=== PATIENT | female | born 1940 | race Caucasian/White ===

== ENCOUNTER 2016-10-23 04:22 | Inpatient (IN) | payer OTHER ==
[~2016-10-23] VITALS: Ht 157.5 cm; Wt 47.2 kg
[~2016-10-23 04:22] MED LIST: ACIDOPHILUS1 CAP PO; ALBUTEROL 3 ML3 ML INH; ALBUTEROL 3 ML3 ML NEB; APAP325 MG PO; AZITHROMYCIN500 MG PO; CARDIZEM CD180 MG PO; CEFTAZIDIME IV; CIPRO 500MG TA500 MG PO; CIPROFLOXACIN500 MG PO; DALIRESP500 MCG PO; DILTIAZEM60 MG PO; DOK100 MG PO; DULCOLAX5 MG PR; FLEET ENEMA 131 UNIT RC; FLOVENT0.11 MG/Ac INH; FORTAZ1 GM IV; LOVENOX 4040 MG/0.4 SC; MELATONIN 3 MG-1 TAB PO; MELATONIN3 MG PO; MILK OF MA400 MG/5 M PO; MIRALAX17 GM PO; MUCINEX ER600 MG PO; PERIOGARD 473473 ML PO; PREDNISONE10 MG PO; ROBITUSSIN W/CO10 ML PO; SENNA CON/DOCUS1 TAB PO; SENNA LEAVES1 GRA PO; SODIUM CHLORIDE1 GM PO; SPIRIVA 18 MCG18 MCG INH; TESSALON PERLE100 MG PO; VITAMIN D50000 IU PO
--- NOTE | 2016-10-23 04:28 | NUR ---
DR JACOBS AT BEDSIDE FOR EVAL. RESP CALLED.
--- NOTE | 2016-10-23 04:30 | ED DYSPNEA/ASTHMA COMPLAINT ---
See Addendum History of Present Illness General Chief Complaint: Dyspnea (COPD, CHF, Other) Stated Complaint: SOB,COUGH Source: patient Exam Limitations: no limitations Vital Signs & Intake/Output Vital Signs & Intake/Output Vital Signs Date Time Temp Pulse Resp B/P Pulse O2 O2 Flow FiO2 Ox Delivery Rate 10/23 0458 98 Non ReBreather 10/23 0430 90 Nasal 2.0L Cannula 10/23 0427 100.4 100 22 136/90 90 Nasal 2.0L Cannula Allergies Coded Allergies: MDX - PCN (penicillin) (PCN (PENICILLIN)) (UNKNOWN 08/02/13) Reconcile Medications Albuterol Sulfate (Proventil) 2.5 MG/3 ML NEB 3 ML INH EVERY 4 HRS/AWAKE wheezes Azithromycin 500 MG TAB 1 TAB PO 3XW INFECTION (Reported) Chlorhexidine Gluconate (Periogard 473 Ml) 0.12 % MOUTHWASH 15 ML PO BID RINSE (Reported) DILTIAZEM HCL (Cardizem Cd) 180 MG C24 1 CAP PO DAILY HEART (Reported) Docusate Sodium/Senna (Senna S) 50 MG/8.6 MG TAB 1 TAB PO BID CONSTIPATION ( Reported) ERGOCALCIFEROL (VITAMIN D2) (Vitamin D2) 50,000 IU SGL 50,000 IU PO Q30D VITAMIN D SUPPLEMENT (Reported) Fluticasone Propionate (Flovent) 0.11 MG/Actuation SIDRA 0.22 MG INH BID COPD ( Reported) Guaifenesin (Mucinex) 600 MG TAB.ER.12H 1 TAB PO BID PNA (Reported) Lactobacillus Acidophilus (Acidophilus) 1 CAP CAP 1 CAP PO BID GI (Reported) Melatonin 3 MG TAB 1 TAB PO AT BEDTIME SLEEP (Reported) Robitussin AC (Guaifenesin-Codeine Syrup) 10 ML UDC 10 ML PO Q4-6 PRN COUGH Roflumilast (Daliresp) 500 MCG TAB 1 TAB PO DAILY UNKNOWN (Reported) Tiotropium [place] (Spiriva) 18 MCG CAP.W.DEV 1 CAP INH DAILY COPD (Reported) Triage Note: PT BIBA FROM [facility]. PER EMS SUDDEN ONSET OF SOB AND COUGH. HX OF COPD. PT GIVEN DUO NEB IN ROUTE AND 125MG SOLU MEDROL. ON ARRIVAL PT ON 2L O2, O2 SAT LOW 90'S AND PT COUGHING UNCONTROLLED. Triage Nurses Notes Reviewed? yes Onset: Gradual Duration: hour(s):, getting worse Timing: single episode today Severity: moderate Activities at Onset: none Prior Episodes/Possible Cause: occasional episodes Modifying Factors: Worsens With: movement. Associated Symptoms: cough, wheezing HPI: 76-year-old woman history of COPD, presents with dyspnea at rest. Per the medics, the F staff noted that she had increased work of breathing, wheezing, and shortness of breath. Her O2 sat on 3 L dislocated was 88%, which would improve during a breathing treatment to 97%. Expiratory CO2 in route was 50. The medics noted use of accessory muscles in transit. She confers coughing and wheezing, but no chest pain. Pt given solumedrol 125mg iv en route. She is otherwise well. Past History Medical History Any Pertinent Medical History? see below for history Neurological: NONE EENT: NONE Cardiovascular: hypertension Respiratory: severe, oxygen dependent COPD, bilateral cylindrical bronchiectasis , recurrent pseudomonas pneumonia, chronic interstitial lung disease, left upper lobe lung nodule Gastrointestinal: NONE Hepatic: NONE Renal: NONE Musculoskeletal: ARTHRITIS Psychiatric: NONE Endocrine: NONE Blood Disorders: NONE Cancer(s): NONE FAMILY INDEPENDENCE CASE MANAGER/Reproductive: NONE History of MRSA: No History of VRE: No History of CDIFF: No Surgical History Surgical History: N Psychosocial History Who do you live with Patient/Self Services at Home Oxygen What is your primary language Kinyarwanda Family History Family History, If Any: MOTHER FH: heart disease SISTER FH: diabetes mellitus Relation not specified for: Family history unknown Hx Contributory? No Review of Systems Review of Systems Constitutional: Reports: no symptoms. EENTM: Reports: no symptoms. Respiratory: Reports: no symptoms. Cardiovascular: Reports: no symptoms. GI: Reports: no symptoms. Genitourinary: Reports: no symptoms. Musculoskeletal: Reports: no symptoms. Skin: Reports: no symptoms. Neurological/Psychological: Reports: no symptoms. Hematologic/Endocrine: Reports: no symptoms. Immunologic/Allergic: Reports: no symptoms. All Other Systems: Reviewed and Negative Physical Exam Physical Exam General Appearance: well developed/nourished, moderate distress Head: atraumatic, normal appearance Eyes: Bilateral: normal appearance. Ears, Nose, Throat: normal pharynx, normal ENT inspection Neck: normal inspection, supple Respiratory: accessory muscle use, wheezing, respiratory distress Cardiovascular: regular rate/rhythm Gastrointestinal: normal bowel sounds, soft, non-tender Extremities: normal inspection, normal capillary refill, normal range of motion, no edema Neurologic/Psych: no motor/sensory deficits, awake, alert, oriented x 3 Skin: intact, warm/dry Core Measures ACS in differential dx? No Severe Sepsis Present: No Septic Shock Present: No Progress Differential Diagnosis: asthma, AMI, bronchitis, CHF, COPD Plan of Care: Orders Procedure Date/time Status Nothing by Mouth 10/23 B Active Patient Data 10/23 553 Active EKG 10/23 505 Active B-TYPE NATRIURETIC PEP (BNP) 10/23 439 Complete BLOOD CULTURE 10/23 434 Active Saline Lock 10/23 433 Active Misc Message 10/23 433 Active ED Holding Orders 10/23 433 Active Admit to inpatient 10/23 433 Active Vital Signs 10/23 433 Active Code Status 10/23 433 Active RAPID VIRAL INFLUENZA A 10/23 432 Complete BLOOD CULTURE 10/23 432 Active ARTERIAL BLOOD GAS (GEN) 10/23 430 Complete TROPONIN LEVEL 10/23 430 Complete COMPREHENSIVE METABOLIC PANEL 10/23 430 Complete CBC WITHOUT DIFFERENTIAL 10/23 430 Complete EKG 10/23 430 Active Current Medications Sig/Jabier Start time Last Medication Dose Stop Time Status Admin Methylprednisolone 125 MG ONCE ONE 10/23 429 UNVr (Solu Medrol) 10/23 430 Laboratory Tests 10/23/16449: pH 7.37, pCO2 54 H, pO2 63 L, HCO3 31 H, ABG O2 Sat (Measured) 91.0 L, P-50 (Temp Corrected) N, Carboxyhemoglobin 0.1 L, O2 Concentration % 3L, O2 Delivery Method N/C, Phlebotomy Draw Site RIGHT BRACHIAL 10/23/16439: Anion Gap 10, Estimated GFR > 60, BUN/Creatinine Ratio 26.0 H, Glucose 110 H, Calcium 9.5, Total Bilirubin 0.6, AST 26, ALT 23, Alkaline Phosphatase 114, Troponin I < 0.01, Ima-P-Xbwezzkjbfv Pept 89.9, Total Protein 8.1, Albumin 4.4, Globulin 3.7, Albumin/Globulin Ratio 1.2, CBC w Diff NO MAN DIFF REQ, RBC 4.07 L, MCV 87.7, MCH 28.3, RDW 14.0, MPV 8.1, Gran % 86.6 H, Lymphocytes % 8.0 L, Monocytes % 5.0, Eosinophils % 0, Basophils % 0.4, Absolute Granulocytes 10.6 H , Absolute Lymphocytes 1.0 L, Absolute Monocytes 0.6, Absolute Eosinophils 0, Absolute Basophils 0.1, PUBS MCHC 32.3 L 10/23/16 0432: Uqr-I-Zmbhaywpolt Pept Cancelled Microbiology 10/23 444 BLOOD: Blood Culture - RECD 10/23 429 BLOOD: Blood Culture - RECD Diagnostic Imaging: Viewed by Me: Radiology Read. Discussed w/RAD: Radiology Read. CXR Impression: bronchiectasis w/ likely mucoid impaction... full report below. Initial ED EKG: sinus tach (although computer read ekg as afib)... Repeat EKG: unchanged Comments: PATIENT: RAD COLLINS PRESENT AGE: 76 PATIENT ACCOUNT NO: [id number] : 39 LOCATION: [facility] ORDERING PHYSICIAN: AREN JACOBS MD SERVICE DATE: 10/23/16 EXAM TYPE: RAD - XRY-PORTABLE CHEST XRAY EXAMINATION: XR PORTABLE CHEST CLINICAL INFORMATION: Dyspnea COMPARISON: 10/10/2015 TECHNIQUE: Portable view of the chest was obtained. FINDINGS: Lung volumes are symmetric. There is redemonstrated mild patchy opacity at the right lung base, similar to prior. Regions of mucoid impaction are suspected in the bilateral lungs, better demonstrated on prior CT, and which now may be worsened in the left upper lobe. No definite new consolidation. No evidence of pneumothorax, pleural effusion, or pulmonary edema. The cardiomediastinal contour is unremarkable. No acute osseous findings are seen. IMPRESSION: Bronchiectasis with multifocal mucoid impaction, which may be worsened in the left upper lobe compared to prior. DICTATED BY: ZAMZAM YARBROUGH MD DATE/TIME DICTATED:10/23/16544 DEFENSIVE LINE COACH:BLAISE DATE/TIME TRANSCRIBED:10/23/16544 CONFIDENTIAL, DO NOT COPY WITHOUT APPROPRIATE AUTHORIZATION. <Electronically signed in Other Vendor System> SIGNED BY: ZAMZAM YARBROUGH MD 10/23/16 0552 Departure Departure Disposition: STILL A PATIENT Condition: Stable Clinical Impression Primary Impression: COPD exacerbation Secondary Impressions: Sepsis Referrals: BRUCE ORTIZ MD (PCP/Family) Departure Forms: Customer Survey General Discharge Information Admission Note Spoke With: ANNALEE CONNOLLY MD Documentation of Exam: Documentation of any treatments & extenuating circumstances including Concerns Regarding Discharge (functional status, medication knowledge or non-compliance, living conditions, etc.) that warrant an admission rather than observation: pt with copd exacerbation, tachypnea, requires iv solumedrol, nebs/abx, increased 02 support to maintain 02 sat. Dnr/Dni, pt stable for gen med. Critical Care Note Critical Care Note Critical Care Time: 30-74 min
--- NOTE | 2016-10-23 04:48 | NUR ---
IV ACCESS ESTABLISHED PER THIS RN RW #[id number], BLOOD CULTURES COLLECTED AND SENT TO LAB, LABS DRAWN AND SENT BY THIS RN (POLANCO, SST, BLUE, LAV)
[2016-10-23 04:51] LABS: ABSOLUTE BASOPHIL COUNT 0.1 /CUMM (0.0-0.2); ABSOLUTE EOSINOPHIL COUNT 0 /CUMM (0.0-0.7); ABSOLUTE GRANULOCYTE CT 10.6 /CUMM (1.4-6.5); ABSOLUTE MONOCYTE COUNT 0.6 /CUMM (0.10-0.60); BASOPHIL % 0.4 % (0.0-2.0); EOSINOPHIL % 0 % (0-5); GRANULOCYTE % 86.6 % (42.2-75.2); HEMATOCRIT 35.7 % (37-47); MEAN CORPUSCULAR HGB 28.3 PG (27.0-31.0); MEAN CORPUSCULAR HGB CONC 32.3 G/DL (33.0-37.0); MEAN CORPUSCULAR VOLUME 87.7 FL (81.0-99.0); MEAN PLATELET VOLUME 8.1 FL (7.4-10.4); PLATELET COUNT 189 /CUMM (130-400); RED BLOOD CELL CT 4.07 /CUMM (4.20-5.40); WHITE BLOOD CELL COUNT 12.2 /CUMM (4.8-10.8)
--- NOTE | 2016-10-23 05:05 | NUR ---
PT MEDICATED WITH 500MG ZITHRO INFUSING AT 250ML/HR AND 1G ROCEPHIN PER EMAR. 125MG SOLUMEDROL NOT GIVEN TO PT BECAUSE DR JACOBS WAS NOT INFORMED THAT PT HAD 125MG SOLUMEDROL EN ROUTE GIVEN BY MEDIC.
--- NOTE | 2016-10-23 05:07 | NUR ---
PT CHANGED IN GOWN AND PLACED ON MONITOR WITH 5L NC O2 PT SAT 93%.
--- NOTE | 2016-10-23 05:52 | RADIOLOGY REPORT ---
EXAMINATION: XR PORTABLE CHEST CLINICAL INFORMATION: Dyspnea COMPARISON: 10/10/2015 TECHNIQUE: Portable view of the chest was obtained. FINDINGS: Lung volumes are symmetric. There is redemonstrated mild patchy opacity at the right lung base, similar to prior. Regions of mucoid impaction are suspected in the bilateral lungs, better demonstrated on prior CT, and which now may be worsened in the left upper lobe. No definite new consolidation. No evidence of pneumothorax, pleural effusion, or pulmonary edema. The cardiomediastinal contour is unremarkable. No acute osseous findings are seen. IMPRESSION: Bronchiectasis with multifocal mucoid impaction, which may be worsened in the left upper lobe compared to prior.
--- NOTE | 2016-10-23 06:01 | History & Physical ---
RUSSELL ABDI,[facility] 10/23/16 0558: General Information and HPI MD Statement: I have seen and personally examined RAD COLLINS and documented this H&P. The patient is a 76 year old F who presented with a patient stated chief complaint of [shortness of breath and severe cough]. Source of Information: patient Exam Limitations: no limitations History of Present Illness: 76-year-old female with PMH of severe bilateral bronchiectasis on preventative azithromycin and high frequency chest wall oscillation, recurrent pseudomonas pneumonia, chronic interstitial lung disease, 4 mm left upper lobe nodule, advanced COPD on oxygen 2-3 L, HTN, SVT, was sent from [place] for sudden onset of shortness of breath. O2 sat at the ECF on 3L was 89%, improved to 97% after breathing tx. In the ED, she was satting 90% on 2L, improved to 98% on non -rebreather. She reports feeling weak for 3 days. Today, her cough got really severe, she has frequent coughing fits productive of thick yellow sputum. She feels short of breath when she has the coughing fits. She also has sinus tachycardia up to 160s when she coughs. She experiences some palpitations as well. She reports her baseline heart rate is 92-100. She gets headache when she gets severe cough. Pt has been living in [place] for 3 years. Reports that everyone is coughing at the facility. She felt warm and chills today. She has chronic constipation. She has chronic blanching rash on her feet. She reports good appetite but the food at the facility "is not good". She ambulates independently at the facility with a walker. Sputum from 09/13/16, 06/11/16, 05/25/16, 12/30/14 grew pseudomonas aeruginosa sensitive to ceftazidime, ciprofloxacin (S/I), imipenem, resistant to gentamicin. Last echo 08/02/13: Normal left ventricular size, wall thickness and systolic function with no obvious regional wall motion abnormalities. Normal left ventricular diastolic filling pattern for age. The ejection fraction is visually estimated at 60%. Moderate to severe pulmonary hypertension. Allergies/Medications Allergies: Coded Allergies: Penicillins (UNKNOWN 10/23/16) Home Med list Acetaminophen 500 MG TABLET 1 TAB PO Q6 PRN PAIN (Reported) Albuterol Sulfate (Proventil) 2.5 MG/3 ML NEB 3 ML INH EVERY 4 HRS/AWAKE wheezes Ascorbic Acid (Vitamin C) 250 MG TABLET 1 TAB PO DAILY supplement (Reported) Azithromycin 500 MG TAB 1 TAB PO 3XW INFECTION (Reported) Bisacodyl 10 MG SUPP.RECT 1 SUP RC DAILY PRN CONSTIPATION (Reported) Chlorhexidine Gluconate (Periogard 473 Ml) 0.12 % MOUTHWASH 15 ML PO BID RINSE (Reported) DILTIAZEM HCL (Cardizem Cd) 180 MG C24 1 CAP PO DAILY HEART (Reported) Docusate Sodium/Senna (Senna S) 50 MG/8.6 MG TAB 1 TAB PO BID CONSTIPATION ( Reported) ERGOCALCIFEROL (VITAMIN D2) (Vitamin D2) 50,000 IU SGL 50,000 IU PO Q30D VITAMIN D SUPPLEMENT (Reported) Fluticasone Propionate (Flovent) 0.11 MG/Actuation SIDRA 0.22 MG INH BID COPD ( Reported) Guaifenesin (Mucinex) 600 MG TAB.ER.12H 1 TAB PO BID PNA (Reported) Lactobacillus Acidophilus (Acidophilus) 1 CAP CAP 1 CAP PO BID GI (Reported) Lorazepam (Ativan) 0.5 MG TABLET 1 TAB PO Q6P PRN ANXIETY (Reported) Magnesium Hydroxide (Milk Of Magnesia) 400 MG/5 ML ORAL.SUSP 5 ML PO BID PRN CONSTIPATION (Reported) Melatonin 3 MG TAB 1 TAB PO AT BEDTIME SLEEP (Reported) Na Phos,M-B/Na Phos,Di-Ba (Fleet Enema) 19 GRAM-7 GRAM/118 ML ENEMA 1 E RC ONCE PRN CONSTIPATION (Reported) Polyethylene Glycol 3350 (Miralax) 17 GRAM POWD.PACK 1 PAC PO DAILY constipation (Reported) dissolve in water Robitussin AC (Guaifenesin-Codeine Syrup) 10 ML UDC 10 ML PO Q4-6 PRN COUGH Roflumilast (Daliresp) 500 MCG TAB 1 TAB PO DAILY UNKNOWN (Reported) Tiotropium [place] (Spiriva) 18 MCG CAP.W.DEV 1 CAP INH DAILY COPD (Reported) Past History Travel History Traveled to [place] past 21 day No Medical History Neurological: NONE EENT: NONE Cardiovascular: hypertension Respiratory: severe, oxygen dependent COPD, bilateral cylindrical bronchiectasis , recurrent pseudomonas pneumonia, chronic interstitial lung disease, left upper lobe lung nodule Gastrointestinal: NONE Hepatic: NONE Renal: NONE Musculoskeletal: ARTHRITIS Psychiatric: NONE Endocrine: NONE Blood Disorders: NONE Cancer(s): NONE TELECOM COORDINATOR/Reproductive: NONE History of MRSA: No History of VRE: No History of CDIFF: No Surgical History Surgical History: N Past Family/Social History Family History Relations & Conditions if any MOTHER FH: heart disease SISTER FH: diabetes mellitus Relation not specified for: Family history unknown Psychosocial History Where do you live? Extended Care Facility Services at Home: Oxygen Smoking Status: Never Smoked ETOH Use: denies use Illicit Drug Use: denies illicit drug use Functional Ability Ambulation: independent, walker Review of Systems Review of Systems Constitutional: Reports: chills, fever, weakness. Denies: diaphoresis. EENTM: Reports: see HPI. Denies: visual changes. Cardiovascular: Reports: palpitations. Denies: chest pain, orthopena, peripheral edema. Respiratory: Reports: cough, short of breath, sputum production. GI: Reports: constipation. Denies: abdominal pain, bloating, diarrhea, nausea, bloody stool, vomiting. Genitourinary: Denies: dysuria. Exam & Diagnostic Data Last 24 Hrs of Vital Signs/I&O Vital Signs Date Time Temp Pulse Resp B/P Pulse O2 O2 Flow FiO2 Ox Delivery Rate 10/23 0458 98 Non ReBreather 10/23 0430 90 Nasal 2.0L Cannula 10/23 0427 100.4 100 22 136/90 90 Nasal 2.0L Cannula Intake & Output 10/23 0800 10/23 0000 10/22 1600 Intake Total 0 Output Total Balance 0 Intake, Oral 0 Patient 62.596 kg Weight Physical Exam General Appearance Alert, Oriented X3, Cooperative, Moderate Distress, pt was having coughing fits and noticably short of breath with accessory muscle use Skin rash on feet, chronic HEENT Atraumatic, PERRLA, EOMI Neck Supple, No JVD Cardiovascular tachycardic Lungs diffusely decreased breath sound, difficult to assess due to coughing fits Abdomen Normal Bowel Sounds, Soft, No Tenderness Neurological Normal Speech Extremities No Edema Last 24 Hrs of Labs/Seth: Laboratory Tests 10/23/16 0450: pH 7.37, pCO2 54 H, pO2 63 L, HCO3 31 H, ABG O2 Sat (Measured) 91.0 L, P-50 (Temp Corrected) N, Carboxyhemoglobin 0.1 L, O2 Concentration % 3L, O2 Delivery Method N/C, Phlebotomy Draw Site RIGHT BRACHIAL 10/23/16 0440: Anion Gap 10, Estimated GFR > 60, BUN/Creatinine Ratio 26.0 H, Glucose 110 H, Calcium 9.5, Total Bilirubin 0.6, AST 26, ALT 23, Alkaline Phosphatase 114, Troponin I < 0.01, Box-G-Fgyrkvyualo Pept 89.9, Total Protein 8.1, Albumin 4.4, Globulin 3.7, Albumin/Globulin Ratio 1.2, CBC w Diff NO MAN DIFF REQ, RBC 4.07 L, MCV 87.7, MCH 28.3, RDW 14.0, MPV 8.1, Gran % 86.6 H, Lymphocytes % 8.0 L, Monocytes % 5.0, Eosinophils % 0, Basophils % 0.4, Absolute Granulocytes 10.6 H , Absolute Lymphocytes 1.0 L, Absolute Monocytes 0.6, Absolute Eosinophils 0, Absolute Basophils 0.1, PUBS MCHC 32.3 L 10/23/16 0432: Sat-Q-Tmwwjumcibl Pept Cancelled Microbiology 10/23 600 URINE ROUT: Legionella Antigen - ORD 10/23 600 URINE ROUT: Streptococcus pneumoniae Antigen (M - ORD 10/23 600 LOWER RESP: Respiratory Culture - ORD 10/23 600 LOWER RESP: Gram Stain - ORD 10/23 444 BLOOD: Blood Culture - RECD 10/23 429 BLOOD: Blood Culture - RECD Diagnostic Data EKG Results Sinus tachy, rate 156 CXR Results IMPRESSION: Bronchiectasis with multifocal mucoid impaction, which may be worsened in the left upper lobe compared to prior. Assessment/Plan Assessment: 76-year-old female with PMH of severe bilateral bronchiectasis on preventative azithromycin and high frequency chest wall oscillation, recurrent pseudomonas pneumonia, chronic interstitial lung disease, 4 mm left upper lobe nodule, advanced COPD on oxygen 2-3 L, HTN, SVT, was sent from [place] for sudden onset of shortness of breath. Pt admitted to with the following problems addressed: # Acute hypoxic and hypercarbic respiratory failure due to HCAP, pseudomonas PNA , vs COPD exacerbation - Hypoxia, leukocytosis, fever, chills more in favor of pneumonia. Pt has hx of pseudomonas PNA, and has healthcare exposure risk being an [facility] resident. - Rapid flu negative - Given 1 X azithro, ceftriaxone, and ceftazidime in the ED -Given 1 X 125 mg IV solumedrol * Continue ceftazidime * Start vanco, can probably discontinue this * Continue solumedrol * TRC/nebs * Consult pulmonology in am, pt sees Dr. Gonzalez * Continue azithro 500 mg 3X/week, robitussin AC, mucinex, roflumilast * Follow BC X2, LRC, urine legionella, urine strep pneumo # SVT/HTN * Continue diltiazem CD 180 mg # Continue home meds * Continue senna S, miralax, milk mag prn, lactobacillus, melatonin 3 mg, vit d2 , vitamin c, ativan 0.5 qhs prn Diet: heart healthy DVT ppx: mech and pharm DNR/DNI As Ranked By This Provider Problem List: 1. Pneumonia Core Measures/Miscellaneous Acute Coronary Syndrome ACS Diagnosis: No Cerebrovascular Accident CVA/TIA Diagnosis: No Congestive Heart Failure CHF Diagnosis: No Venous Thromboembolism VTE Risk Factors: Acute medical illness, Age > 40 VTE Prophylaxis Ordered Inpt: Mech & Pharm No Mech VTE prophylaxis d/t: No contraindications No VTE Pharm Prophylaxis d/t: No contraindications VTE Diagnosis: No VTE Type: NONE VTE Confirmed by (Test): NONE Severe Sepsis Severe Sepsis Present: No Septic Shock Septic Shock Present: No Miscellaneous Documentation Attending Case Discussed With: Dr. Adrianna Chase Primary Care Physician: BRUCE ORTIZ MD Patient sees these Specialists Dr Gonzalez pulmonology Level of Patient Care: General Medicine CHANDNI HICKS 10/23/16 0703: Resident Review Statement Resident Statement: discussed with case mgmt, reviewed images, amended to note Other Findings: 76-year-old lady with past medical history of multiple pseudomonal pneumonia, severe bronchiectasis, COPD on 2-3 L oxygen, ventricular tachycardia?, Hypertension who lives at [place] for about 3 years brought to the hospital with chief complaint of desaturation, tachycardia. Patient reported having increased cough, sputum production, shortness of breath on exertion for at least 3 days. On the day of admission patient had at the episode of tachycardia of 167 with desaturation on her regular 2-3 liter oxygen. Upon admission to ED patient had fever of 100.4, tachypnea, ET 8% on 3 L O2 saturation. Patient got TRC treatment and O2 saturation ligia to more than 92%. Patient reports that everybody is coughing in the assisted, but denies any chest pain. She also reports heart palpitations. Her baseline heart rate is around 95. She denies any abdominal pain, diarrhea, change in urinary symptoms. Vital signs on admission are noted above General appearance alert and oriented 3, in idtn-ds-fjjarkam distress HEENT Atraumatic, PERRLA, EOMI Neck Supple, No JVD Cardiovascular tachycardia, Normal S1, Normal S2 Lungs Clear to mild decreased breath sounds with fine crackles Abdomen Normal Bowel Sounds, Soft, No Tenderness Neurological Normal Speech, Strength at 5/5 X4 Ext, Extremities No Clubbing, No Cyanosis, No Edema,multiple red rashes on both feet which according to the patient is chronic Portable labs on admission showed reduced 2.2, hemoglobin 11.5 which is at baseline, ABG showed CO2 of 54, O2 of 63, HCO3 of 33, pH 7.37, BMP and troponin were unremarkable, rapid flu was negative CXR: IMPRESSION: Bronchiectasis with multifocal mucoid impaction, which may be worsened in the left upper lobe compared to prior. Patient EKG showed sinus tachycardia 157, QTC of 451, no acute ST-T changes Assessment and plan #HCAP with possible COPD exacerbation/history of bronchiectasis/history of Pseudomonas pneumonia -Patient received IV azithromycin and ceftriaxone, we will give her IV ceftaz a timeout vancomycin -Continue azithromycin 3 times a week -Continue Mucinex -TRC -Patient got 125 mg Solu-Medrol we will continue with 40 mg every 8 -Pulmonary vest and chest physical therapy -Follow blood culture, sputum culture, urine Legionella and strep -Pulmonary consultation in the morning -I would consider Roxana Mayen #Tachycardia -Possibly due to multiple coughs -Patient baseline is around 95, will repeat EKG -Continue diltiazem #Constipation -Continue Senna and MiraLAX DNI/DNR, DVT prophylaxis is mechanical and Lovenox, heart healthy diet, Tylenol for pain GITA ABDI,ADRIANNA 10/23/16 1611: Attending MD Review Statement Attending Statement Attending MD Statement: examined this patient, discuss w/resident/PA/FOAM DISPENSER, agreed w/resident/PA/FOAM DISPENSER, discussed with family, reviewed EMR data (avail), discussed with nursing, discussed with case mgmt, reviewed images, amended to note Attending Assessment/Plan: 76-year-old female with history of advanced COPD and significant bronchiectasis, chronic interstitial lung disease , Pseudomonas pneumonia was sent in from [place] for worsening shortness of breath and cough. Vitals: Temperature 100.8, pulse 115, respiration 22, blood pressure 120/60, saturating 92% on 3 L Pertinent positive Exam Alert, awake, in distress because of continuous cough Decreased breath sounds bilaterally Heart-S1-S2 normal, tachycardic Pertinent positive labs : White count 12.2, hemoglobin 11.5, hematocrit 35.7, bicarbonate 33 Chest s-adm-Camqhbavmtcqac with multifocal mucoid impaction, which may be worsened in the left upper lobe compared to prior. Problem list: 1. Acute on chronic hypercarbic respiratory failure- secondary to recurrent Pseudomonas pneumonia, acute on chronic COPD exacerbation 2. Significant bronchiectasis 3. Leukocytosis fever,-most likely secondary to pneumonia/worsening bronchiectasis 4. History of hypertension, tachycardia Plan 1. Panculture, start IV ceftaz and Vanco. Narrow down the antibiotics once the culture results are back. Pulmonary consult appreciated. Continue IV Solu- Medrol. 2. Consider ID input. 3. Chest PT. TRC/nebs 4. Continue Cardizem for tachycardia. 5. DVT prophylaxis
--- NOTE | 2016-10-23 06:20 | NUR ---
HOUSE STAFF AT BEDSIDE FOR EVAL.
--- NOTE | 2016-10-23 06:25 | NUR ---
1G FORTAZ INFUSING PER EMAR.
--- NOTE | 2016-10-23 06:30 | NUR ---
THIS RN GAVE REPORT TO PAN ALLEN.
--- NOTE | 2016-10-23 06:32 | NUR ---
PT GOING TO 210-2
[2016-10-23] MEDS ORDERED: MIRALAX17 G1 PO (06:43)
[2016-10-23] MEDS ORDERED: VITAMIN C250 M3 PO (06:44)
[2016-10-23] MEDS ORDERED: ATIVAN0.5 M1 PO (06:46)
[2016-10-23] MEDS ORDERED: BISACODYL10 M1 RC (06:47)
[2016-10-23] MEDS ORDERED: MILK OF MA400 MG/52 PO (06:47)
[2016-10-23] MEDS ORDERED: FLEET ENEMA133 ML RC (06:48)
[2016-10-23] MEDS ORDERED: ACETAMINOPHEN500 M4 PO (06:48)
--- NOTE | 2016-10-23 07:15 | NUR ---
PT ARRIVED TO FLOOR APPX 0644. COUGHING OUT OF CONTROL, COUGHING UP BROWN TO YELLOW THICK SPUTUM. ALERT AND ORIENTED. REFUSED BED ALARM. USED BATHROOM - URINATED AND LOOSE BOWEL MOVEMENT. UPON MOVEMENT AND COUGHIN SATTING LOW 75%, HR 160S. RESPIRATORY CONTACTED AND STATED SHE DROPS WHEN COUGHING SIGNIFICANTLY. PT IN BED. RESTING, COUGHING HAS SLOWED DOWN. ON 5L NC SATTING AT 93%, HEART RATE STEADILY GOING DOWN TO LOW 100S. PT DRINKING WATER, BASIN AT BEDSIDE WITH TISSUES. SKIN CDI NO EDEMA. PT NEEDS WALKER, NEXT NURSE AND MST AWARE. AWAITING ORDERED CARDIZEM TO BE DELIVERED.
[2016-10-23 07:20] VITALS: BP 120/60
--- NOTE | 2016-10-23 10:53 | Cons- Pulmonary ---
General Information and HPI Consulting Request Date of Consult: 10/23/16 Requested By: ronny Reason for Consult: Exacerbation of COPD History of Present Illness: Patient is 76-year-old with bronchiectasis chronic pseudomonas colonization admitted with increasing cough hypercapnic respiratory failure and chest radiograph showing increased parenchymal density Allergies/Medications Allergies: Coded Allergies: Penicillins (UNKNOWN 10/23/16) Home Med List: Acetaminophen 500 MG TABLET 1 TAB PO Q6 PRN PAIN (Reported) Albuterol Sulfate (Proventil) 2.5 MG/3 ML NEB 3 ML INH EVERY 4 HRS/AWAKE wheezes Ascorbic Acid (Vitamin C) 250 MG TABLET 1 TAB PO DAILY supplement (Reported) Azithromycin 500 MG TAB 1 TAB PO 3XW INFECTION (Reported) Bisacodyl 10 MG SUPP.RECT 1 SUP RC DAILY PRN CONSTIPATION (Reported) Chlorhexidine Gluconate (Periogard 473 Ml) 0.12 % MOUTHWASH 15 ML PO BID RINSE (Reported) DILTIAZEM HCL (Cardizem Cd) 180 MG C24 1 CAP PO DAILY HEART (Reported) Docusate Sodium/Senna (Senna S) 50 MG/8.6 MG TAB 1 TAB PO BID CONSTIPATION ( Reported) ERGOCALCIFEROL (VITAMIN D2) (Vitamin D2) 50,000 IU SGL 50,000 IU PO Q30D VITAMIN D SUPPLEMENT (Reported) Fluticasone Propionate (Flovent) 0.11 MG/Actuation SIDRA 0.22 MG INH BID COPD ( Reported) Guaifenesin (Mucinex) 600 MG TAB.ER.12H 1 TAB PO BID PNA (Reported) Lactobacillus Acidophilus (Acidophilus) 1 CAP CAP 1 CAP PO BID GI (Reported) Lorazepam (Ativan) 0.5 MG TABLET 1 TAB PO Q6P PRN ANXIETY (Reported) Magnesium Hydroxide (Milk Of Magnesia) 400 MG/5 ML ORAL.SUSP 5 ML PO BID PRN CONSTIPATION (Reported) Melatonin 3 MG TAB 1 TAB PO AT BEDTIME SLEEP (Reported) Na Phos,M-B/Na Phos,Di-Ba (Fleet Enema) 19 GRAM-7 GRAM/118 ML ENEMA 1 E RC ONCE PRN CONSTIPATION (Reported) Polyethylene Glycol 3350 (Miralax) 17 GRAM POWD.PACK 1 PAC PO DAILY constipation (Reported) dissolve in water Robitussin AC (Guaifenesin-Codeine Syrup) 10 ML UDC 10 ML PO Q4-6 PRN COUGH Roflumilast (Daliresp) 500 MCG TAB 1 TAB PO DAILY UNKNOWN (Reported) Tiotropium [place] (Spiriva) 18 MCG CAP.W.DEV 1 CAP INH DAILY COPD (Reported) Review of Systems Review of Systems Constitutional: Denies: chills, fever. Cardiovascular: Denies: chest pain, peripheral edema. Respiratory: Reports: cough, short of breath, sputum production, wheezing. GI: Denies: abdominal pain, diarrhea, melena. Past History Travel History Traveled to [place] past 21 day No Medical History Neurological: NONE EENT: NONE Cardiovascular: hypertension Respiratory: severe, oxygen dependent COPD, bilateral cylindrical bronchiectasis , recurrent pseudomonas pneumonia, chronic interstitial lung disease, left upper lobe lung nodule Gastrointestinal: NONE Hepatic: NONE Renal: NONE Musculoskeletal: ARTHRITIS Psychiatric: NONE Endocrine: NONE Blood Disorders: NONE Cancer(s): NONE MOCK UP MAKER/Reproductive: NONE Surgical History Surgical History: none Family History Relations & Conditions If Any: MOTHER FH: heart disease SISTER FH: diabetes mellitus Relation not specified for: Family history unknown Psychosocial History Where Do You Live? Extended Care Facility Services at Home: Oxygen Smoking Status: Never Smoked ETOH Use: denies use Illicit Drug Use: denies illicit drug use Functional Ability Ambulation: independent, walker Exam & Diagnostic Data Last 24 Hrs of Vital Signs/I&O Vital Signs Date Time Temp Pulse Resp B/P Pulse O2 O2 Flow FiO2 Ox Delivery Rate 10/23 0720 100.8 125 22 120/60 80 Nasal 2.0L Cannula 10/23 0649 Nasal 5.0L Cannula 10/23 0458 98 Non ReBreather 10/23 0430 90 Nasal 2.0L Cannula 10/23 0427 100.4 100 22 136/90 90 Nasal 2.0L Cannula Intake & Output 10/23 1600 10/23 0800 10/23 0000 Intake Total 0 Output Total Balance 0 Intake, Oral 0 Patient 104 lb Weight Since saturation 2 L 80% temperature 100.8 exam for chest shows scattered rhonchi cardiac exam shows regular S1 and S2 without murmurs abdominal exam is soft nontender Last 48 Hrs of Labs/Seth: Laboratory Tests 10/23/16 0450: pH 7.37, pCO2 54 H, pO2 63 L, HCO3 31 H, ABG O2 Sat (Measured) 91.0 L, P-50 (Temp Corrected) N, Carboxyhemoglobin 0.1 L, O2 Concentration % 3L, O2 Delivery Method N/C, Phlebotomy Draw Site RIGHT BRACHIAL 10/23/16 0440: Anion Gap 10, Estimated GFR > 60, BUN/Creatinine Ratio 26.0 H, Glucose 110 H, Calcium 9.5, Total Bilirubin 0.6, AST 26, ALT 23, Alkaline Phosphatase 114, Troponin I < 0.01, Kex-F-Nsvbheujxhf Pept 89.9, Total Protein 8.1, Albumin 4.4, Globulin 3.7, Albumin/Globulin Ratio 1.2, CBC w Diff NO MAN DIFF REQ, RBC 4.07 L, MCV 87.7, MCH 28.3, RDW 14.0, MPV 8.1, Gran % 86.6 H, Lymphocytes % 8.0 L, Monocytes % 5.0, Eosinophils % 0, Basophils % 0.4, Absolute Granulocytes 10.6 H , Absolute Lymphocytes 1.0 L, Absolute Monocytes 0.6, Absolute Eosinophils 0, Absolute Basophils 0.1, PUBS MCHC 32.3 L 10/23/16 0433: Virus Culture Pending 10/23/16 0432: Lce-W-Scpofxdlidt Pept Cancelled Assessment/Plan Impression/Plan: 76-year-old woman with advanced COPD bronchiectasis chronic pseudomonas colonization admitted with acute probable Pseudomonas infection is social with hypercapnic history failure Recommendations: Aggressive pulmonary toilet. Use flutter valve to facilitate expectoration. Continue antibiotics IV steroids. Obtain sputum C&S Consult Acknowledgment - Thank you for your consult request.
[2016-10-23 15:41] VITALS: BP 140/60
[2016-10-23 16:00] VITALS: BP 140/60
--- NOTE | 2016-10-23 16:02 | Admission Certification ---
Admission Certification Certification Statement - As attending physician, I certify that at the time of - admission, based on clinical presentation, severity of - symptoms, need for further diagnostic testing and - therapeutic interventions, and risk of adverse outcomes - without in-hospital treatment, in my clinical assessment, - this patient requires an acute hospital stay for a minimum - of two nights or longer. I have also considered psychsocial - factors such as support system, advanced age, financial - issues, cognitive issues, and failed out-patient treatments, - past re-admission history, safety of patient, and lack of - compliance as applicable. Specific rationale supporting this admission is: Acute COPD exacerbation with underlying bronchiectasis and chronic pseudomonas colonization, pneumonia.
--- NOTE | 2016-10-23 23:38 | NUR ---
PT C/O SOB AND PERSISTENT, PRODUCTIVE COUGH. BP 140/78, HR 149, SPO2 90 ON 5L NC. # 407 NOTIFIED. TO ASSESS PT
[2016-10-23 23:56] VITALS: BP 140/78
--- NOTE | 2016-10-24 02:02 | NUR ---
PT'S T 102.9. # 407 MADE AWARE.
--- NOTE | 2016-10-24 02:03 | NUR ---
# 407 AT PT'S BEDSIDE
[2016-10-24 02:48] LABS: ABSOLUTE BASOPHIL COUNT 0 /CUMM (0.0-0.2); ABSOLUTE EOSINOPHIL COUNT 0 /CUMM (0.0-0.7); ABSOLUTE GRANULOCYTE CT 8.1 /CUMM (1.4-6.5); ABSOLUTE LYMPH COUNT 0.2 /CUMM (1.2-3.4); ABSOLUTE MONOCYTE COUNT 0.8 /CUMM (0.10-0.60); BASOPHIL % 0 % (0.0-2.0); EOSINOPHIL % 0 % (0-5); GRANULOCYTE % 89.1 % (42.2-75.2); HEMATOCRIT 30.8 % (37-47); MEAN CORPUSCULAR HGB 28.9 PG (27.0-31.0); MEAN CORPUSCULAR HGB CONC 33.3 G/DL (33.0-37.0); MEAN CORPUSCULAR VOLUME 86.7 FL (81.0-99.0); MEAN PLATELET VOLUME 8.4 FL (7.4-10.4); PLATELET COUNT 153 /CUMM (130-400); RBC DISTRIBUTION WIDTH 13.4 % (11.5-14.5); RED BLOOD CELL CT 3.55 /CUMM (4.20-5.40)
[2016-10-24 03:33] LABS: WHITE BLOOD CELL COUNT 9.1 /CUMM (4.8-10.8)
--- NOTE | 2016-10-24 04:20 | NUR ---
# 407 INFORMED OF PT'S BP P 153 T 100.3 SPO2 94%. PT STARTED ON IVF.
[2016-10-24 04:32] VITALS: BP 115/47
[2016-10-24 05:33] VITALS: BP 124/58
[2016-10-24 08:02] VITALS: BP 132/74
--- NOTE | 2016-10-24 09:41 | PN- Housestaff ---
MAXIMILIANO ABDI,SIMON 10/24/16 0941: Subjective Follow-up For: Acute hypoxic/hypercarbic respiratory failure HCAP Pseudomonas PNA COPD exacerbation Subjective: Patient seen and examined at bedside. Patient had an episode of fever and has been tachycardic up to 150s overnight. This morning she is complaining of difficulty breathing. Repeat ABG and EKGs were ordered. Patient is improving on BiPAP. She also endorses pleuritic chest pain also worsened by coughing. She denies any abdominal pain palpitations nausea vomiting constipation diarrhea. Review of Systems Constitutional: Reports: see HPI. Objective Last 24 Hrs of Vital Signs/I&O Vital Signs Date Time Temp Pulse Resp B/P Pulse O2 O2 Flow FiO2 Ox Delivery Rate 10/24 1049 110 94 10/24 1023 93 Nasal 4.0L Cannula 10/24 0802 98.1 104 22 132/74 92 10/24 0533 100.3 139 20 124/58 92 Nasal 3.0L Cannula 10/24 0432 100.3 153 20 115/47 96 Nasal 6.0L Cannula 10/24 0137 102.9 10/24 0120 102.9 10/24 0027 101.2 10/24 0008 91 Nasal 6.0L Cannula 10/24 0000 92 Nasal 6.0L Cannula 10/23 2356 101.5 149 21 140/78 91 Nasal 3.0L Cannula 10/23 1607 92 Nasal 4.0L Cannula 10/23 1600 98.7 115 20 140/60 92 Nasal 4.0L Cannula 10/23 1541 98.7 115 20 140/60 93 Nasal 3.0L Cannula Intake & Output 10/24 1600 10/24 0800 10/24 0000 Intake Total 270 480 Output Total 350 Balance -80 480 Intake, IV 150 Intake, Oral 120 480 Output, Urine 350 Physical Exam General Appearance: Alert, Oriented X3, Cooperative, Mild Distress Other Physical Findings: Skin rash on feet, chronic HEENT Atraumatic, PERRLA, EOMI Neck Supple, No JVD Cardiovascular tachycardic Lungs diffusely decreased breath sound Abdomen Normal Bowel Sounds, Soft, No Tenderness Neurological Normal Speech Extremities No Edema Current Medications: Current Medications Sig/Jabier Start time Last Medication Dose Route Stop Time Status Admin Acetaminophen 650 MG Q6P PRN 10/23 0700 AC 10/24 PO 0027 Albuterol Sulfate 3 ML EVERY 4 HRS/AWAKE 10/23 0800 AC 10/24 INH 1022 Ascorbic Acid 250 MG DAILY 10/23 1000 AC 10/24 PO 0943 Azithromycin 500 MG Q48H 10/25 0700 AC Dextrose/Water 250 ML IV Benzonatate 100 MG BID PRN 10/23 2030 AC 10/24 PO 0029 Ceftazidime 2,000 MG IQ8 10/24 0245 AC 10/24 IV 0800 Chlorhexidine 15 ML BID 10/23 1000 AC 10/24 Gluconate PO 0941 Diltiazem HCl 180 MG DAILY 10/23 0645 AC 10/24 PO 0940 Enoxaparin Sodium 40 MG DAILY 10/23 1000 AC 10/24 SC 0940 Guaifenesin 600 MG BID 10/23 1000 AC 10/24 PO 0941 Lorazepam 0.5 MG ONCE ONE 10/23 2345 DC 10/24 IV 10/23 2346 0030 Lorazepam 0.5 MG Q6P PRN 10/23 0700 AC PO 10/30 0659 Melatonin 3 MG AT BEDTIME 10/23 2200 AC 10/23 PO 2123 Methylprednisolone 40 MG Q8 10/24 0600 AC 10/24 IV 0515 Polyethylene Glycol 17 GM DAILY 10/23 1000 AC 10/24 PO 0941 Roflumilast 500 MCG DAILY 10/23 1000 AC 10/24 PO 0939 Senna/Docusate Sodium 1 TAB BID PRN 10/23 0645 AC PO Sodium Chloride 1,000 ML Q13H 10/24 0415 AC 10/24 IV 0515 Tiotropium [place] 1 PUF DAILY 10/23 1000 AC 10/24 INH 0941 Vancomycin HCl 1,000 MG DAILY 10/23 1000 AC 10/24 Dextrose/Water 250 ML IV 0941 Last 24 Hrs of Lab/Seth Results Last 24 Hrs of Labs/Mics: Laboratory Tests 10/24/16 0925: pH 7.36, pCO2 66 *H, pO2 82, HCO3 37 H, ABG O2 Sat (Measured) 95.0 L, P-50 ( Temp Corrected) N, Carboxyhemoglobin 0.3 L, O2 Concentration % 6LPM, O2 Delivery Method NC, Anion Gap 3 L, Estimated GFR > 60, BUN/Creatinine Ratio 22.5, CBC w Diff NO MAN DIFF REQ, RBC 3.62 L, MCV 87.3, MCH 28.7, RDW 13.9, MPV 8.3, Gran % 92.1 H, Lymphocytes % 3.0 L, Monocytes % 4.9, Eosinophils % 0, Basophils % 0 L, Absolute Granulocytes 6.7 H, Absolute Lymphocytes 0.2 L, Absolute Monocytes 0.4, Absolute Eosinophils 0, Absolute Basophils 0, PUBS MCHC 32.8 L, Phlebotomy Draw Site LEFT BRACHIAL 10/24/16 0734: Urinalysis LIGHT H, Urine Color YEL, Urine Clarity CLEAR, Urine pH 6.0, Ur Specific [place] 1.025, Urine Protein TRACE H, Urine Ketones NEG, Urine Nitrite NEG, Urine Bilirubin NEG, Urine Urobilinogen 0.2, Ur Leukocyte Esterase NEG, Ur Microscopic SEDIMENT EXAMINED, Urine RBC RARE, Urine WBC RARE, Ur Epithelial Cells RARE, Urine Hemoglobin TRACE-LYSED, Urine Glucose NEG 10/24/16 0600: Sodium Cancelled, Potassium Cancelled, Chloride Cancelled, Carbon Dioxide Cancelled, Anion Gap Cancelled, BUN Cancelled, Creatinine Cancelled, BUN/ Creatinine Ratio Cancelled, CBC w Diff Cancelled, WBC Cancelled, RBC Cancelled, Hgb Cancelled, Hct Cancelled, MCV Cancelled, MCH Cancelled, RDW Cancelled, Plt Count Cancelled, MPV Cancelled, PUBS MCHC Cancelled 10/24/16 0225: Anion Gap 6, Estimated GFR > 60, BUN/Creatinine Ratio 24.0, Lactic Acid 0.6 L, CBC w Diff NO MAN DIFF REQ, RBC 3.55 L, MCV 86.7, MCH 28.9, RDW 13.4, MPV 8.4, Gran % 89.1 H, Lymphocytes % 1.8 L, Monocytes % 9.1, Eosinophils % 0, Basophils % 0 L, Absolute Granulocytes 8.1 H, Absolute Lymphocytes 0.2 L, Absolute Monocytes 0.8 H, Absolute Eosinophils 0, Absolute Basophils 0, PUBS MCHC 33.3 Microbiology 10/24 725 URINE ROUT: Urine Culture - RECD 10/23 2299 LOWER RESP: Respiratory Culture - RES 10/23 2299 LOWER RESP: Gram Stain - RES Assessment/Plan Assessment: 76-year-old female with PMH of severe bilateral bronchiectasis on preventative azithromycin and high frequency chest wall oscillation, recurrent pseudomonas pneumonia, chronic interstitial lung disease, 4 mm left upper lobe nodule, advanced COPD on oxygen 2-3 L, HTN, SVT, was sent from [place] for sudden onset of shortness of breath. Pt admitted to with the following problems addressed: # Acute hypoxic and hypercarbic respiratory failure due to HCAP, pseudomonas PNA , vs COPD exacerbation Hypoxia, leukocytosis, fever, chills more in favor of pneumonia. Pt has hx of pseudomonas PNA, and has healthcare exposure risk being an [facility] resident. Rapid flu negative. Patient was given 1 X azithro, ceftriaxone, and ceftazidime with 125mg IV Solumedrol in the ED. * Continue ceftazidime 2g IV Q8 * Cont Vanco 1g IV daily * Cont Solumedrol 40mg IV Q8 * TRC nebs as needed * Consult pulmonology in am, pt sees Dr. Gonzalez * Continue azithro 500 mg 3X/week, robitussin AC, mucinex, roflumilast * Follow BC X2, LRC, urine legionella, urine strep pneumo * Pulm consulted # Hyponatremia * Follow serum osmolality * Check BEP daily, trend Na # SVT/HTN * Continue diltiazem CD 180 mg # Continue home meds * Continue senna S, miralax, milk mag prn, lactobacillus, melatonin 3 mg, vit d2 , vitamin c, ativan 0.5 qhs prn Diet: heart healthy DVT ppx: mech and pharm DNR/DNI Problem List: 1. Pneumonia 2. COPD (chronic obstructive pulmonary disease) 3. DVT prophylaxis 4. COPD (chronic obstructive pulmonary disease) Pain Ratin Pain Location: Chest Pain Goal: Remain pain free Pain Plan: Mild pathway Tomorrow's Labs & Rationales: CBC BEP GTIA ABDI,[facility] 10/24/16 1247: Attending MD Review Statement Attending Statement Attending MD Statement: examined this patient, discuss w/resident/PA/LEAD REFINERY SUPERVISOR, agreed w/resident/PA/LEAD REFINERY SUPERVISOR, discussed with family, reviewed EMR data (avail), discussed with nursing, discussed with case mgmt, reviewed images, amended to note Attending Assessment/Plan: Patient seen and examined. Currently getting respiratory treatment. Was in respiratory distress following which ABG was done which showed hypercarbia. Patient was refusing BiPAP as she is very uncomfortable on the mask, she was convinced for the BiPAP. She's been spiking fevers. She was supposed to get vancomycin and ceftaz since admission, somehow she got just 1 dose of ceftaz since admission. Her antibiotics resumed early this morning. Problem list: 1. Acute on chronic hypercarbic respiratory failure- secondary to recurrent Pseudomonas pneumonia, acute on chronic COPD exacerbation 2. Significant bronchiectasis 3. Leukocytosis fever,-most likely secondary to pneumonia/worsening bronchiectasis 4. History of hypertension, tachycardia Plan 1. Follow-up cultures. Continue IV Zithro, ceftaz and Vanco. Narrow down the antibiotics once the culture results are back. Pulmonary consult appreciated. Continue IV Solu-Medrol. 2. Consider ID input. 3. Chest PT. TRC/nebs 4. Continue Cardizem for tachycardia. 5. DVT prophylaxi
[2016-10-24 10:29] LABS: ABSOLUTE BASOPHIL COUNT 0 /CUMM (0.0-0.2); ABSOLUTE EOSINOPHIL COUNT 0 /CUMM (0.0-0.7); ABSOLUTE GRANULOCYTE CT 6.7 /CUMM (1.4-6.5); ABSOLUTE LYMPH COUNT 0.2 /CUMM (1.2-3.4); ABSOLUTE MONOCYTE COUNT 0.4 /CUMM (0.10-0.60); BASOPHIL % 0 % (0.0-2.0); EOSINOPHIL % 0 % (0-5); GRANULOCYTE % 92.1 % (42.2-75.2); HEMATOCRIT 31.6 % (37-47); MEAN CORPUSCULAR HGB 28.7 PG (27.0-31.0); MEAN CORPUSCULAR HGB CONC 32.8 G/DL (33.0-37.0); MEAN CORPUSCULAR VOLUME 87.3 FL (81.0-99.0); MEAN PLATELET VOLUME 8.3 FL (7.4-10.4); PLATELET COUNT 132 /CUMM (130-400); RBC DISTRIBUTION WIDTH 13.9 % (11.5-14.5); RED BLOOD CELL CT 3.62 /CUMM (4.20-5.40); WHITE BLOOD CELL COUNT 7.3 /CUMM (4.8-10.8)
--- NOTE | 2016-10-24 10:41 | RADIOLOGY REPORT ---
EXAMINATION: XR PORTABLE CHEST CLINICAL INFORMATION: Dyspnea. COMPARISON: Chest x-ray dated 10/23/2016, 10/10/2015. CT scan of the chest dated 12/28/2014. TECHNIQUE: AP semierect portable view of the chest was obtained. FINDINGS: The cardiac mediastinal silhouette is within normal limits in size. Lungs bilaterally are hyperinflated and again demonstrate diffuse tubular bronchiectasis in the lower lungs and to a lesser extent in the upper and mid lung bilaterally. There is diffuse thickening of the central airways. Hazy peribronchial opacities are seen in the lower lobes bilaterally, left greater than right, likely representing airway associated infection/inflammation and mucous plugging. Findings are similar to the recent prior exam. No evolving consolidation is seen. No pneumothorax is present. No pulmonary edema is seen. Diffuse osteopenia is noted. IMPRESSION: Chronic obstructive lung disease with diffuse bronchiectasis, most prominent in the lower lung zones. Associated airway associated infection/inflammation and mucous plugging is suspected. Findings are similar to the prior exam with no evolving dense consolidation seen.
--- NOTE | 2016-10-24 11:44 | PN- Pulmonary ---
Subjective HPI/Critical Care Issues: Patient noted to be more short of breath this morning now on BiPAP she has lethargic arterial blood gases not substantively different nor is chest x-ray Objective Current Medications: Current Medications Sig/Jabier Start time Last Medication Dose Route Stop Time Status Admin Acetaminophen 650 MG Q6P PRN 10/23 0700 AC 10/24 PO 0027 Albuterol Sulfate 3 ML EVERY 4 HRS/AWAKE 10/23 0800 AC 10/24 INH 1022 Ascorbic Acid 250 MG DAILY 10/23 1000 AC 10/24 PO 0943 Azithromycin 500 MG Q48H 10/25 0700 AC Dextrose/Water 250 ML IV Benzonatate 100 MG BID PRN 10/23 2030 AC 10/24 PO 0029 Ceftazidime 2,000 MG IQ8 10/24 0245 AC 10/24 IV 0800 Chlorhexidine 15 ML BID 10/23 1000 AC 10/24 Gluconate PO 0941 Diltiazem HCl 180 MG DAILY 10/23 0645 AC 10/24 PO 0940 Enoxaparin Sodium 40 MG DAILY 10/23 1000 AC 10/24 SC 0940 Guaifenesin 600 MG BID 10/23 1000 AC 10/24 PO 0941 Lorazepam 0.5 MG ONCE ONE 10/23 2345 DC 10/24 IV 10/23 2346 0030 Lorazepam 0.5 MG Q6P PRN 10/23 0700 AC PO 10/30 0659 Melatonin 3 MG AT BEDTIME 10/23 2200 AC 10/23 PO 2123 Methylprednisolone 40 MG Q8 10/24 0600 AC 10/24 IV 0515 Polyethylene Glycol 17 GM DAILY 10/23 1000 AC 10/24 PO 0941 Roflumilast 500 MCG DAILY 10/23 1000 AC 10/24 PO 0939 Senna/Docusate Sodium 1 TAB BID PRN 10/23 0645 AC PO Sodium Chloride 1,000 ML Q13H 10/24 0415 AC 10/24 IV 0515 Tiotropium [place] 1 PUF DAILY 10/23 1000 AC 10/24 INH 0941 Vancomycin HCl 1,000 MG DAILY 10/23 1000 AC 10/24 Dextrose/Water 250 ML IV 0941 Vital Signs & I&O Last 24 Hrs of Vitals and I&O: Vital Signs Date Time Temp Pulse Resp B/P Pulse O2 O2 Flow FiO2 Ox Delivery Rate 10/24 1049 110 94 10/24 1023 93 Nasal 4.0L Cannula 10/24 0802 98.1 104 22 132/74 92 10/24 0533 100.3 139 20 124/58 92 Nasal 3.0L Cannula 10/24 0432 100.3 153 20 115/47 96 Nasal 6.0L Cannula 10/24 0137 102.9 10/24 0120 102.9 10/24 0027 101.2 10/24 0008 91 Nasal 6.0L Cannula 10/24 0000 92 Nasal 6.0L Cannula 10/23 2356 101.5 149 21 140/78 91 Nasal 3.0L Cannula 10/23 1607 92 Nasal 4.0L Cannula 10/23 1600 98.7 115 20 140/60 92 Nasal 4.0L Cannula 10/23 1541 98.7 115 20 140/60 93 Nasal 3.0L Cannula Intake & Output 10/24 1600 10/24 0800 10/24 0000 Intake Total 270 480 Output Total 350 Balance -80 480 Intake, IV 150 Intake, Oral 120 480 Output, Urine 350 Action saturations adequate arterial blood gases did not show significant respiratory acidosis exam for chest shows scattered rhonchi cardiac exam shows normal S1 and S2 without murmurs Impression/Plan Impression/Plan Impression/Plan: 76-year-old woman with advanced COPD bronchiectasis chronic pseudomonas colonization admitted with acute probable Pseudomonas infection is social with hypercapnic history failure. Patient is felt to improve on BiPAP Recommendations: Aggressive pulmonary toilet. Pursue discussions regarding direction of her care with consideration for comfort care
--- NOTE | 2016-10-24 15:42 | NUR ---
PATIENT'S VS @ 0800 BP132/74, P104, T98.1, R22, SPO2 @ 92% ON 5L O2. AFTER AN EPISODE OF FREQ PROD. COUGH, HR 150 @ 0848. THE FIRE PILOT MAXIMILIANO IS ON THE FLOOR AND IS NOTIFIED. AFTER RESP. TX HR135 @ 10AM. PATIENT WAS PUT ON BIPAP PER MD'S ORDER @ 10;30 FOR 1 HOUR. HR 107 @ 1200. SPO2 96% ON 5L O2. FIRE PILOT IS AT BED SIDE. PATIENT RELAXING. COUGHING SUBSIDED.
[2016-10-24 16:03] VITALS: BP 104/50
[2016-10-24 22:30] VITALS: BP 120/60
--- NOTE | 2016-10-25 07:09 | PN- Housestaff ---
HALEIGH ABDI,JOSHUA 10/25/16 0709: Subjective Follow-up For: Acute hypoxic/hypercarbic respiratory failure HCAP Pseudomonas PNA COPD exacerbation Subjective: Ms. Toledo seen and examined at bedside this AM. She had intermittent periods of intense cough with resultant worsening of her shortness of her breath. Patient reports her respiratory status is the same as on admission, though the neb treatments are helping somewhat. She has been using the acapella device provided for her. Review of Systems Constitutional: Reports: malaise. Denies: chills, fever. EENTM: Reports: nasal congestion. Denies: blurred vision, visual changes, throat pain. Cardiovascular: Denies: chest pain, palpitations. Respiratory: Reports: cough, short of breath, sputum production, wheezing. Denies: hemoptysis. Gastrointestinal: Denies: bloating, constipation, diarrhea. Genitourinary: Denies: dysuria, hematuria. Musculoskeletal: Denies: back pain. Skin: Denies: change in skin color, change in hair/nails. Neurological/Psychological: Denies: confusion, headache, numbness. Hematologic/Endocrine: Denies: bruising, bleeding. Objective Last 24 Hrs of Vital Signs/I&O Vital Signs Date Time Temp Pulse Resp B/P Pulse O2 O2 Flow FiO2 Ox Delivery Rate 10/25 1143 92 Nasal 4.0L Cannula 10/25 1045 Nasal 4.0L Cannula 10/25 0826 99.8 101 20 140/60 91 Nasal 4.0L Cannula 10/25 0823 94 Nasal 4.0L Cannula 10/25 0800 93 Nasal 4.0L Cannula 10/25 0028 90 92 10/25 0000 93 Nasal 4.0L Cannula 10/24 2230 99.0 95 22 120/60 95 Nasal 5.0L Cannula 10/24 2041 93 Nasal 5.0L Cannula 10/24 1709 92 Nasal 5.0L Cannula Intake & Output 10/25 1600 10/25 0800 10/25 0000 Intake Total 650 120 480 Output Total 300 700 300 Balance 350 -580 180 Intake, IV 150 Intake, Oral 500 120 480 Number 1 2 Bowel Movements Output, Urine 300 700 300 Physical Exam General Appearance: Alert, Oriented X3, Cooperative, Moderate Distress Skin: No Significant Lesion HEENT: Atraumatic, PERRLA, Mucous Membr. moist/pink Neck: No thryomegaly Lymphatic: Cervical nl Cardiovascular: Normal S1, Normal S2, Tachycardic Lungs: Decreased air entry bilaterally, diffuse rhonchi Abdomen: Normal Bowel Sounds, Soft, No Tenderness Neurological: Normal Speech, Normal Tone Extremities: No Clubbing, No Cyanosis, No Edema Current Medications: Current Medications Sig/Jabier Start time Last Medication Dose Route Stop Time Status Admin Acetaminophen 650 MG Q6P PRN 10/23 0700 AC 10/25 PO 0848 Albuterol Sulfate 3 ML EVERY 4 HRS/AWAKE 10/23 0800 AC 10/25 INH 1139 Ascorbic Acid 250 MG DAILY 10/23 1000 AC 10/25 PO 0846 Azithromycin 500 MG Q24H 10/24 1600 DC 10/24 Dextrose/Water 250 ML IV 1630 Benzonatate 100 MG BID PRN 10/23 2030 AC 10/25 PO 0846 Ceftazidime 2,000 MG IQ8 10/24 0245 AC 10/25 IV 0840 Chlorhexidine 15 ML TID 10/25 1600 CAN Gluconate PO Chlorhexidine 15 ML BID 10/23 1000 AC 10/25 Gluconate PO 0847 Dextrose/Sodium 1,000 ML Q13H 10/24 1415 DC 10/25 Chloride IV 0730 Diltiazem HCl 180 MG DAILY 10/23 0645 AC 10/25 PO 0846 Enoxaparin Sodium 40 MG DAILY 10/23 1000 AC 10/25 SC 0845 Guaifenesin 600 MG BID 10/23 1000 AC 10/25 PO 0846 Lorazepam 0.5 MG Q6P PRN 10/23 0700 AC PO 10/30 0659 Melatonin 3 MG AT BEDTIME 10/23 2200 AC 10/24 PO 2118 Methylprednisolone 40 MG Q12 10/25 2200 AC IV Methylprednisolone 40 MG Q8 10/24 0600 DC 10/25 IV 0515 Polyethylene Glycol 17 GM DAILY 10/23 1000 AC 10/25 PO 0845 Roflumilast 500 MCG DAILY 10/23 1000 DC 10/25 PO 0847 Senna/Docusate Sodium 1 TAB BID PRN 10/23 0645 AC PO Tiotropium [place] 1 PUF DAILY 10/23 1000 AC 10/25 INH 0846 Vancomycin HCl 1,000 MG DAILY 10/23 1000 DC 10/25 Dextrose/Water 250 ML IV 0845 Orders Radiology Findings: EXAMINATION: XR PORTABLE CHEST CLINICAL INFORMATION: Dyspnea. COMPARISON: Chest x-ray dated 10/23/2016, 10/10/2015. CT scan of the chest dated 12/28/2014. TECHNIQUE: AP semierect portable view of the chest was obtained. FINDINGS: The cardiac mediastinal silhouette is within normal limits in size. Lungs bilaterally are hyperinflated and again demonstrate diffuse tubular bronchiectasis in the lower lungs and to a lesser extent in the upper and mid lung bilaterally. There is diffuse thickening of the central airways. Hazy peribronchial opacities are seen in the lower lobes bilaterally, left greater than right, likely representing airway associated infection/inflammation and mucous plugging. Findings are similar to the recent prior exam. No evolving consolidation is seen. No pneumothorax is present. No pulmonary edema is seen. Diffuse osteopenia is noted. IMPRESSION: Chronic obstructive lung disease with diffuse bronchiectasis, most prominent in the lower lung zones. Associated airway associated infection/inflammation and mucous plugging is suspected. Findings are similar to the prior exam with no evolving dense consolidation seen. Assessment/Plan Assessment: Ms. Toledo is a pleasant 76-year-old female with PMH of severe bilateral bronchiectasis on preventative azithromycin and high frequency chest wall oscillation, recurrent pseudomonas pneumonia, chronic interstitial lung disease, 4 mm left upper lobe nodule, advanced COPD on home oxygen 2-3 L, HTN and SVT who was sent to the ED from [place] for sudden onset of shortness of breath. Patient was given 1 X azithro, ceftriaxone, and ceftazidime with 125mg IV Solumedrol in the ED. Patient was admitted to with the following problems being addressed: 1. Acute hypoxic & hypercarbic respiratory failure 2/2 HCAP (Pseudomonas PNA) in the setting of end-stage COPD and bilateral severe bronchiectasis * Hypoxia, leukocytosis, fever, chills noted on presentation. * Pt has hx of pseudomonas PNA, and has healthcare exposure risk being an [facility] resident. * Rapid flu negative. * Pulm consult with Dr. Gonzalez placed and appreciated * Continue ceftazidime 2g IV Q8. Vancomycin and azithromycin have been discontinued. * Reduce solumedrol to 40mg IV Q12 * Peridex oral solution started today * Roflumilast discontinued today as per Dr. Gonzalez * TRC nebs as needed * Continue robitussin AC & mucinex * Follow BC X2 show no growth to date, LRC shows light growth of gram negative rods, urine for strep and legionella antigen negative 2. Hyponatremia * 2/2 SIADH * Na trending down today to 131, IVF have been discontinued * Repeat BEP in AM 3. SVT/HTN * Continue diltiazem CD 180 mg PO daily 4. Continue home meds * Continue senna S, miralax, milk mag prn, lactobacillus, melatonin 3 mg, Vit d2 , Vitamin c DNR/DNI Heart Healthy Diet Mild pain pathways DVTP: Lovenox Problem List: 1. COPD (chronic obstructive pulmonary disease) 2. Cough productive of purulent sputum 3. Acute respiratory distress 4. DNR (do not resuscitate) 5. DNI (do not intubate) 6. Hyponatremia 7. Tachycardia Pain Ratin Pain Location: n/a Pain Goal: Pain 4 or less Pain Plan: Mild pain pathway Tomorrow's Labs & Rationales: BEP to monitor hyponatremia. DEBBIE ABDI,[place] 10/25/16 1413: Attending MD Review Statement Attending Statement Attending MD Statement: examined this patient, discuss w/resident/PA/CAR DRIVER, agreed w/resident/PA/CAR DRIVER, reviewed EMR data (avail), discussed with nursing, discussed with case mgmt, amended to note Attending Assessment/Plan: Patient seen and examined. Lying in bed. Not in any acute respiratory distress although she does have a prolonged cough on and off. She reports feeling better but admits to shortness of breath with exertion. She is currently afebrile and hemodynamically stable. She is maintaining saturation on 4 L of oxygen. On examination she has diminished breath sounds bilaterally with expiratory rhonchi. Pulmonary consultation appreciated. Sputum cultures positive for gram -negative rods. Recommendations: -Discontinue vancomycin and azithromycin. -Continue antibiotic therapy with cefazolin pending sensitivity results. -Continue bronchodilator therapy and intravenous steroid therapy at current dose. -Continue mucolytic therapy, would recommend chest CT due to her significant productive cough which is difficult to expectorate. -"Status discussed by her seater assembler Rishi Gonzalez MD. Patient currently admits for DO NOT RESUSCITATE/DO NOT INTUBATE status. Per his discussion she would like to continue current therapy with consideration of comfort measures only, if she begins to deteriorate.
[2016-10-25 08:26] VITALS: BP 140/60
--- NOTE | 2016-10-25 10:52 | PN- Pulmonary ---
Subjective HPI/Critical Care Issues: Doing a little better Still has copious amount of secretions Feels fatigued Poor appetite Fever curve seems to have improved No nausea vomiting No significant diarrhea Vital signs otherwise reviewed Significant data sodium down to 131 bicarbonate is 39 she has chronic hypercarbia White count down to 7.3 ABG 736/66/82 Previous sputum culture had grown Pseudomonas which was sensitive to Cipro Recent sputum culture consistent with probable Pseudomonas Objective Current Medications: Current Medications Sig/Jabier Start time Last Medication Dose Route Stop Time Status Admin Acetaminophen 650 MG .STK-MED ONE 10/24 1410 DC PO 10/24 1411 Acetaminophen 650 MG Q6P PRN 10/23 0700 AC 10/25 PO 0848 Albuterol Sulfate 3 ML EVERY 4 HRS/AWAKE 10/23 0800 AC 10/25 INH 0757 Ascorbic Acid 250 MG DAILY 10/23 1000 AC 10/25 PO 0846 Azithromycin 500 MG Q48H 10/25 0700 CAN Dextrose/Water 250 ML IV Azithromycin 500 MG Q24H 10/24 1600 AC 10/24 Dextrose/Water 250 ML IV 1630 Benzonatate 100 MG BID PRN 10/23 2030 AC 10/25 PO 0846 Ceftazidime 2,000 MG IQ8 10/24 0245 AC 10/25 IV 0840 Chlorhexidine 15 ML BID 10/23 1000 AC 10/25 Gluconate PO 0847 Dextrose/Sodium 1,000 ML Q13H 10/24 1415 AC 10/25 Chloride IV 0730 Diltiazem HCl 180 MG DAILY 10/23 0645 AC 10/25 PO 0846 Enoxaparin Sodium 40 MG DAILY 10/23 1000 AC 10/25 SC 0845 Guaifenesin 600 MG BID 10/23 1000 AC 10/25 PO 0846 Lorazepam 0.5 MG Q6P PRN 10/23 0700 AC PO 10/30 0659 Melatonin 3 MG AT BEDTIME 10/23 2200 AC 10/24 PO 2118 Methylprednisolone 40 MG Q8 10/24 0600 AC 10/25 IV 0515 Polyethylene Glycol 17 GM DAILY 10/23 1000 AC 10/25 PO 0845 Roflumilast 500 MCG DAILY 10/23 1000 AC 10/25 PO 0847 Senna/Docusate Sodium 1 TAB BID PRN 10/23 0645 AC PO Sodium Chloride 1,000 ML Q13H 10/24 0415 DC 10/24 IV 0515 Tiotropium Seymour 1 PUF DAILY 10/23 1000 AC 10/25 INH 0846 Vancomycin HCl 1,000 MG DAILY 10/23 1000 AC 10/25 Dextrose/Water 250 ML IV 0845 Vital Signs & I&O Last 24 Hrs of Vitals and I&O: Vital Signs Date Time Temp Pulse Resp B/P Pulse O2 O2 Flow FiO2 Ox Delivery Rate 10/25 0826 99.8 101 20 140/60 91 Nasal 4.0L Cannula 10/25 0823 94 Nasal 4.0L Cannula 10/25 0800 93 Nasal 4.0L Cannula 10/25 0028 90 92 10/25 0000 93 Nasal 4.0L Cannula 10/24 2230 99.0 95 22 120/60 95 Nasal 5.0L Cannula 10/24 2041 93 Nasal 5.0L Cannula 10/24 1709 92 Nasal 5.0L Cannula 10/24 1603 99.3 100 22 104/50 98 10/24 1600 92 Nasal 4.0L Cannula 10/24 1049 110 94 Intake & Output 10/25 1600 10/25 0800 10/25 0000 Intake Total 120 480 Output Total 700 300 Balance -580 180 Intake, Oral 120 480 Number 2 Bowel Movements Output, Urine 700 300 Laboratory Tests 10/24 10/24 0925 0734 Blood Gas pH (7.35 - 7.45 PH) 7.36 pCO2 (35 - 45 TORR) 66 *H pO2 (80 - 100 TORR) 82 HCO3 (21 - 28 MEQ/L) 37 H ABG O2 Sat (Measured) (>96.0 %) 95.0 L P-50 (Temp Corrected) N Carboxyhemoglobin (1.5 - 5.0 %) 0.3 L O2 Concentration % 6LPM O2 Delivery Method NC Chemistry Sodium (137 - 145 mmol/L) 131 L Potassium (3.5 - 5.1 mmol/L) 4.3 Chloride (98 - 107 mmol/L) 90 L Carbon Dioxide (22 - 30 mmol/L) 39 H Anion Gap (5 - 16) 3 L BUN (7 - 17 mg/dL) 9 Creatinine (0.5 - 1.0 mg/dL) 0.4 L Estimated GFR (>60 ml/min) > 60 BUN/Creatinine Ratio (7 - 25 %) 22.5 Hematology CBC w Diff NO MAN DIFF REQ WBC (4.8 - 10.8 /CUMM) 7.3 RBC (4.20 - 5.40 /CUMM) 3.62 L Hgb (12.0 - 16.0 G/DL) 10.4 L Hct (37 - 47 %) 31.6 L MCV (81.0 - 99.0 FL) 87.3 MCH (27.0 - 31.0 PG) 28.7 RDW (11.5 - 14.5 %) 13.9 Plt Count (130 - 400 /CUMM) 132 MPV (7.4 - 10.4 FL) 8.3 Gran % (42.2 - 75.2 %) 92.1 H Lymphocytes % (20.5 - 51.1 %) 3.0 L Monocytes % (1.7 - 9.3 %) 4.9 Eosinophils % (0 - 5 %) 0 Basophils % (0.0 - 2.0 %) 0 L Absolute Granulocytes (1.4 - 6.5 /CUMM) 6.7 H Absolute Lymphocytes (1.2 - 3.4 /CUMM) 0.2 L Absolute Monocytes (0.10 - 0.60 /CUMM) 0.4 Absolute Eosinophils (0.0 - 0.7 /CUMM) 0 Absolute Basophils (0.0 - 0.2 /CUMM) 0 PUBS MCHC (33.0 - 37.0 G/DL) 32.8 L Miscellaneous Phlebotomy Draw Site LEFT BRACHIAL Urines Urinalysis LIGHT H Urine Color (YEL,AMB,STR) YEL Urine Clarity (CLEAR) CLEAR Urine pH (5.0 - 8.0) 6.0 Ur Specific [place] (1.001 - 1.035) 1.025 Urine Protein (NEG,<30 MG/DL) TRACE H Urine Ketones (NEG) NEG Urine Nitrite (NEG) NEG Urine Bilirubin (NEG) NEG Urine Urobilinogen (0.1 - 1.0 EU/dl) 0.2 Ur Leukocyte Esterase (NEG) NEG Ur Microscopic SEDIMENT EXAMINED Urine RBC (0 - 5 /HPF) RARE Urine WBC (0 - 2 /HPF) RARE Ur Epithelial Cells (NONE,FEW) RARE Urine Hemoglobin (NEG) TRACE-LYSED Urine Glucose (N MG/DL) NEG 10/24 10/24 0600 0225 Chemistry Sodium (137 - 145 mmol/L) Cancelled 132 L Potassium (3.5 - 5.1 mmol/L) Cancelled 3.8 Chloride (98 - 107 mmol/L) Cancelled 90 L Carbon Dioxide (22 - 30 mmol/L) Cancelled 36 H Anion Gap (5 - 16) Cancelled 6 BUN (7 - 17 mg/dL) Cancelled 12 Creatinine (0.5 - 1.0 mg/dL) Cancelled 0.5 Estimated GFR (>60 ml/min) > 60 BUN/Creatinine Ratio (7 - 25 %) Cancelled 24.0 Lactic Acid (0.7 - 2.1 mmol/L) 0.6 L Hematology CBC w Diff Cancelled NO MAN DIFF REQ WBC (4.8 - 10.8 /CUMM) Cancelled 9.1 RBC (4.20 - 5.40 /CUMM) Cancelled 3.55 L Hgb (12.0 - 16.0 G/DL) Cancelled 10.3 L Hct (37 - 47 %) Cancelled 30.8 L MCV (81.0 - 99.0 FL) Cancelled 86.7 MCH (27.0 - 31.0 PG) Cancelled 28.9 RDW (11.5 - 14.5 %) Cancelled 13.4 Plt Count (130 - 400 /CUMM) Cancelled 153 MPV (7.4 - 10.4 FL) Cancelled 8.4 Gran % (42.2 - 75.2 %) 89.1 H Lymphocytes % (20.5 - 51.1 %) 1.8 L Monocytes % (1.7 - 9.3 %) 9.1 Eosinophils % (0 - 5 %) 0 Basophils % (0.0 - 2.0 %) 0 L Absolute Granulocytes (1.4 - 6.5 /CUMM) 8.1 H Absolute Lymphocytes (1.2 - 3.4 /CUMM) 0.2 L Absolute Monocytes (0.10 - 0.60 /CUMM) 0.8 H Absolute Eosinophils (0.0 - 0.7 /CUMM) 0 Absolute Basophils (0.0 - 0.2 /CUMM) 0 PUBS MCHC (33.0 - 37.0 G/DL) Cancelled 33.3 Microbiology Date/Time Procedure - Status Source Growth 10/24 725 Urine Culture - RES URINE ROUT 10/24 719 Legionella Antigen - COMP URINE ROUT 10/24 719 Streptococcus pneumoniae Antigen (M - COMP URINE ROUT 10/23 2300 Respiratory Culture - RES LOWER RESP GRAM NEGATIVE RODS 10/23 230 Gram Stain - RES LOWER RESP 10/23 0445 Blood Culture - RES BLOOD 10/23 0430 Blood Culture - RES BLOOD Impression/Plan Impression/Plan Impression/Plan: Chest x-ray reviewed IMPRESSION: Chronic obstructive lung disease with diffuse bronchiectasis, most prominent in the lower lung zones. Associated airway associated infection/inflammation and mucous plugging is suspected. Findings are similar to the prior exam with no evolving dense consolidation seen. Physical Exam General Appearance: Alert, Oriented X3, Cooperative, Mild Distress Other Physical Findings: Skin rash on feet, chronic HEENT Atraumatic, PERRLA, EOMI Neck Supple, No JVD Cardiovascular tachycardic Lungs diffusely decreased breath sound, with diffuse rhonchi and crackles heard bilaterally Abdomen Normal Bowel Sounds, Soft, No Tenderness Neurological Normal Speech Extremities No Edema IMPRESSION This is a lady with very advanced end-stage lung disease with COPD and bilateral bronchiectasis with chronic Pseudomonas colonization, on maximum medical therapy now comes in with * Acute hypoxemic and hypercarbic respiratory failure due to worsening Pseudomonas infection * Severe lung disease with end-stage COPD and bilateral severe bronchiectasis related to previous infections with Pseudomonas colonization with recurrent infection now with acute infection suggestive of Pseudomonas infection not responding to by mouth Cipro * 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 RECOMMENDATION * Continue antibiotics * Can discontinue azithromycin Vanco after today * Reduce without prednisone to 40 mg every 12 and 40 mg daily from tomorrow * Prior to discharge will resume her outpatient azithromycin for prevention of Pseudomonas infections * Chlorhexidine mouthwash * Aggressive bowel regimen * Increase her calorie intake if pt able * Chest pt bid daily. Will reinstitute thoracic vest in the next few days * If she continues to have hyponatremia we will minimize her fluid intake * If the bicarbonate goes more than 40 we will give her Diamox by mouth * Hold her Daliresp * Continue bowel regimen Discussed overall goals of care with the patient. Patient wishes to be DNR/DNI does not want to go to intensive care does not wish any other life-support she would like to continue her current therapy for now. If she continues to deteriorate if she goes into progressive respiratory failure then she wishes to be made comfort
--- NOTE | 2016-10-25 12:58 | Discharge Summary ---
Visit Information Visit Dates Admission Date: 10/23/16 Discharge Date: 11/02/2016 Hospital Course Course Attending Physician: FRANCE LEWIS M.D Primary Care Physician: DIANA ABDI,[facility] Course: 76-year-old lady with past medical history of multiple pseudomonal pneumonia, severe bronchiectasis, COPD on 2-3 L oxygen, ventricular tachycardia?, Hypertension who lives at [facility] for about 3 years brought to the hospital with chief complaint of desaturation, tachycardia. Patient reported having increased cough, sputum production, shortness of breath on exertion for at least 3 days. On the day of admission patient had at the episode of tachycardia of 167 with desaturation on her regular 2-3 liter oxygen. Upon admission to ED patient had fever of 100.4, tachypnea, ET 8% on 3 L O2 saturation. Patient got TRC treatment and O2 saturation ligia to more than 92%. Patient reports that everybody is coughing in the halfway, but denies any chest pain. She also reports heart palpitations. Her baseline heart rate is around 95. She denies any abdominal pain, diarrhea, change in urinary symptoms. Vital signs on admission are noted above General appearance alert and oriented 3, in [id number] distress HEENT Atraumatic, PERRLA, EOMI Neck Supple, No JVD Cardiovascular tachycardia, Normal S1, Normal S2 Lungs Clear to mild decreased breath sounds with fine crackles Abdomen Normal Bowel Sounds, Soft, No Tenderness Neurological Normal Speech, Strength at 5/5 X4 Ext, Extremities No Clubbing, No Cyanosis, No Edema,multiple red rashes on both feet which according to the patient is chronic Portable labs on admission showed reduced 2.2, hemoglobin 11.5 which is at baseline, ABG showed CO2 of 54, O2 of 63, HCO3 of 33, pH 7.37, BMP and troponin were unremarkable, rapid flu was negative CXR: IMPRESSION: Bronchiectasis with multifocal mucoid impaction, which may be worsened in the left upper lobe compared to prior. Patient EKG showed sinus tachycardia 157, QTC of 451, no acute ST-T changes Assessment and plan #Pseudomonas pneumonia/COPD exacerbation/history of bronchiectasis She was put on IV prednisone, TRC and IV , vancomycin. eftazidime and Vancomycin was discontinued and patient was put on MEROPENEM based on the sputum cultures for 4 days and the switched to PO cipro 750 BID for toal 14 days . Patient received aggressive pulmonary toilet, Mucinex, mucosil. IV steroids was changed to by mouth prednisone.patient responded moderately well to the treatments and she became stable to be discharged to [facility]. #Tachycardia Initially patient had tachycardia. Her baseline heart rate according to her was around 95. After treatment of the pneumonia patient heart rate remained stable. We continued Cardizem.no major events were observed. #MALNUTRITION patient has BMI of 19 and low oral intake. per nutritional consult put the patient on MAGIC CUP for supplemental calori intake and it should be continued in the ECF as well. Allergies: Coded Allergies: Penicillins (UNKNOWN 10/23/16) Disposition Summary Disposition Principal Diagnosis: Pseudomonas PNA COPD exacerbation Additional Diagnosis: Bronchecasis Discharge Disposition: SNF Discharge Instructions General Discharge Information Code Status: Do Not Resucitate/Intubat Patient's Diet: heart healthy Patient's Activity: as tolerated Follow-Up Instructions/Appts: -Please follow-up with your primary care provider within 7 days after discharge. 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 -Please come back to the hospital if your symptoms got worse. Medications at Discharge Discharge Medications: Continue taking these medications: Fluticasone Propionate (Flovent) 0.11 MG/Actuation SIDRA 0.22 Milligram Inhale through mouth TWICE DAILY Qty = 12 Comments: Last Taken: NOT GIVEN IN HOSPITAL Time: Lactobacillus Acidophilus (Acidophilus) 1 CAP CAP 1 Capsule ORAL TWICE DAILY Comments: Last Taken: NOT GIVEN IN HOSP Time: Tiotropium Driscoll (Spiriva) 18 MCG CAP.W.DEV 1 Capsule Inhale through mouth DAILY Qty = 3 Comments: Last Taken: NOT GIVEN IN HOSP Time: Guaifenesin (Mucinex) 600 MG TAB.ER.12H 1 Tablet ORAL TWICE DAILY Comments: Last Taken: 01/04/15 Time: 09:38A.M Chlorhexidine Gluconate (Periogard 473 Ml) 0.12 % MOUTHWASH 15 Milliliters ORAL TWICE DAILY Comments: Last Taken: NOT GIVEN IN HOSPITAL Time: Albuterol Sulfate (Proventil) 2.5 MG/3 ML NEB 3 Milliliters Inhale through mouth EVERY 4 HRS WHILE AWAKE Days = 30 Comments: Last Taken: 01/04/15 Time: 08:38 A.M Azithromycin (Azithromycin) 500 MG TAB 1 Tablet ORAL Three times a week Roflumilast (Daliresp) 500 MCG TAB 1 Tablet ORAL DAILY Docusate Sodium/Senna (Senna S) 50 MG/8.6 MG TAB 1 Tablet ORAL TWICE DAILY Comments: Last Taken: 01/03/15 Time: 09:07P.M DILTIAZEM HCL (Cardizem Cd) 180 MG C24 1 Capsule ORAL DAILY Comments: Last Taken: 01/04/15 Time: 08:39A.M ERGOCALCIFEROL (VITAMIN D2) (Vitamin D2) 50,000 IU SGL 50,000 International Unit ORAL ONCE A MONTH Melatonin (Melatonin) 3 MG TAB 1 Tablet ORAL AT BEDTIME Comments: Last Taken: NOT GIVEN IN HOSP Time: Robitussin AC (Guaifenesin-Codeine Syrup) 10 ML UDC 10 Milliliters ORAL EVERY 4-6 HOURS as needed for COUGH Days = 4 Polyethylene Glycol 3350 (Miralax) 17 GRAM POWD.PACK 1 Packet ORAL DAILY Instructions: dissolve in water Comments: Last Taken: 11/01/16 Time: 09:25 AM Ascorbic Acid (Vitamin C) 250 MG TABLET 1 Tablet ORAL DAILY Days = 28 Comments: NOT GIVEN IN HOSPITAL Lorazepam (Ativan) 0.5 MG TABLET 1 Tablet ORAL EVERY SIX HOURS NEEDED as needed for ANXIETY Days = 28 Bisacodyl (Bisacodyl) 10 MG SUPP.RECT 1 Suppository RECTAL DAILY as needed for CONSTIPATION Qty = 12 Comments: NOT GIVEN IN HOSPITAL Magnesium Hydroxide (Milk Of Magnesia) 400 MG/5 ML ORAL.SUSP 5 Milliliters ORAL TWICE DAILY as needed for CONSTIPATION Na Phos,M-B/Na Phos,Di-Ba (Fleet Enema) 19 GRAM-7 GRAM/118 ML ENEMA 1 Enema RECTAL GIVE ONCE as needed for CONSTIPATION Acetaminophen (Acetaminophen) 500 MG TABLET 1 Tablet ORAL EVERY SIX HOURS as needed for PAIN Comments: Last Taken: 10/30/16 Time: 2130 Start taking the following new medications: Prednisone (Prednisone) 10 MG TABLET 0 ORAL SEE INSTRUCTIONS Qty = 1 No Refills Instructions: 11/03/16 take 0.5 tab 11/04/16 take 0.5 tab then stop. Comments: Last Taken: 11/02/16 Time: 10:06 AM Ciprofloxacin HCl (Ciprofloxacin HCl) 750 MG TABLET 1 Tablet ORAL TWICE DAILY Qty = 18 No Refills Instructions: for 9 days Comments: Last Taken: 11/02/16 Time: 10:06 AM Copies To: BRUCE ORTIZ MD; MITESH ABDI,SWAPNA Orr Attending MD Review Statement Documenting Attending: MELISSA ABDI,CHIKIS Orr Other Findings: discharge today on po ciprofloxacin. no more back pain, will f/u with pulmonology after discharge.
[2016-10-25 16:05] VITALS: BP 118/60
[2016-10-26 00:47] VITALS: BP 120/60
--- NOTE | 2016-10-26 06:57 | PN- Housestaff ---
See Addendum Subjective Follow-up For: Acute hypoxic/hypercarbic respiratory failure Pseudomonas PNA COPD exacerbation Subjective: Patient seen and examined at bedside this AM. She endorses generalized malaise and lethargy as well as persistent cough that is bothersome and keeping her up at night. She also reports low back pain and poor appetite for which she is not eating. She does report that she used her bipap last night. Review of Systems Constitutional: Reports: malaise, weakness. Denies: chills. EENTM: Reports: nasal congestion. Denies: blurred vision, visual changes, hearing changes, throat pain. Cardiovascular: Denies: chest pain, palpitations, peripheral edema. Respiratory: Reports: cough, short of breath, sputum production, wheezing. Gastrointestinal: Denies: abdominal pain, bloating, constipation, diarrhea, distention. Genitourinary: Denies: dysuria, hematuria. Musculoskeletal: Reports: back pain. Denies: joint pain. Skin: Denies: change in skin color, change in hair/nails. Neurological/Psychological: Denies: confusion, headache, paresthesia. Hematologic/Endocrine: Denies: bruising, bleeding. Immunologic/Allergic: Denies: splenectomy. Objective Last 24 Hrs of Vital Signs/I&O Vital Signs Date Time Temp Pulse Resp B/P Pulse O2 O2 Flow FiO2 Ox Delivery Rate 10/26 0856 97.7 90 20 138/66 95 10/26 0754 Nasal 3.0L Cannula 10/26 0047 98.8 82 20 120/60 95 Nasal 3.0L Cannula 10/26 0000 Nasal 3.0L Cannula 10/25 1630 96 Nasal 4.0L Cannula 10/25 1605 98.8 85 20 118/60 91 10/25 1600 Nasal 4.0L Cannula 10/25 1143 92 Nasal 4.0L Cannula Intake & Output 10/26 1600 10/26 0800 10/26 0000 Intake Total 140 450 Output Total 700 275 Balance -560 175 Intake, IV 20 Intake, Oral 120 450 Number 0 2 Bowel Movements Output, Urine 700 275 Physical Exam General Appearance: Alert, Oriented X3, Cooperative, Mild Distress Skin: No Rashes, No Significant Lesion HEENT: Atraumatic, Mucous Membr. moist/pink Lymphatic: Cervical nl Cardiovascular: Normal S1, Normal S2 Lungs: Decreased breath sounds bilaterally, bilateral rhonchi appreciated Abdomen: Normal Bowel Sounds, Soft, No Tenderness, No Masses Neurological: Normal Speech, Normal Tone Extremities: No Clubbing, No Cyanosis, No Edema Vascular: Pulses Symmetrical Current Medications: Current Medications Sig/Jabier Start time Last Medication Dose Route Stop Time Status Admin Acetaminophen 650 MG .STK-MED ONE 10/25 2105 DC PO 10/25 2106 Acetaminophen 650 MG Q6P PRN 10/23 0700 AC 10/26 PO 0806 Albuterol Sulfate 3 ML EVERY 4 HRS/AWAKE 10/23 0800 AC 10/26 INH 0752 Ascorbic Acid 250 MG DAILY 10/23 1000 AC 10/26 PO 1047 Azithromycin 500 MG Q24H 10/24 1600 DC 10/24 Dextrose/Water 250 ML IV 1630 Benzonatate 100 MG BID PRN 10/23 2030 AC 10/26 PO 0807 Ceftazidime 2,000 MG IQ8 10/24 0245 DC 10/26 IV 0807 Chlorhexidine 15 ML TID 10/25 1600 CAN Gluconate PO Chlorhexidine 15 ML BID 10/23 1000 AC 10/26 Gluconate PO 1048 Ciprofloxacin 500 MG BID 10/26 1019 DC PO 10/30 1018 Dextrose/Sodium 1,000 ML Q13H 10/24 1415 DC 10/25 Chloride IV 0730 Diltiazem HCl 180 MG DAILY 10/23 0645 AC 10/26 PO 1048 Enoxaparin Sodium 40 MG DAILY 10/23 1000 AC 10/26 SC 1046 Guaifenesin 600 MG BID 10/23 1000 AC 10/26 PO 0807 Lorazepam 0.5 MG Q6P PRN 10/23 0700 AC PO 10/30 0659 Melatonin 3 MG AT BEDTIME 10/23 2200 AC 10/25 PO 2119 Meropenem 1 GM IQ8 10/26 1600 UNVr IV Methylprednisolone 40 MG Q12 10/25 2200 AC 10/26 IV 1047 Methylprednisolone 40 MG Q8 10/24 0600 DC 10/25 IV 0515 Polyethylene Glycol 17 GM DAILY 10/23 1000 AC 10/25 PO 0845 Roflumilast 500 MCG DAILY 10/23 1000 DC 10/25 PO 0847 Senna/Docusate Sodium 1 TAB BID PRN 10/23 0645 AC PO Tiotropium Meeker 1 PUF DAILY 10/23 1000 AC 10/26 INH 1047 Vancomycin HCl 1,000 MG DAILY 10/23 1000 DC 10/25 Dextrose/Water 250 ML IV 0845 Last 24 Hrs of Lab/Seth Results Last 24 Hrs of Labs/Mics: Laboratory Tests 10/26/16 0845: Anion Gap 6, Estimated GFR > 60, BUN/Creatinine Ratio 20.0 Orders Radiology Findings: EXAMINATION: XR PORTABLE CHEST CLINICAL INFORMATION: Dyspnea. COMPARISON: Chest x-ray dated 10/23/2016, 10/10/2015. CT scan of the chest dated 12/28/2014. TECHNIQUE: AP semierect portable view of the chest was obtained. FINDINGS: The cardiac mediastinal silhouette is within normal limits in size. Lungs bilaterally are hyperinflated and again demonstrate diffuse tubular bronchiectasis in the lower lungs and to a lesser extent in the upper and mid lung bilaterally. There is diffuse thickening of the central airways. Hazy peribronchial opacities are seen in the lower lobes bilaterally, left greater than right, likely representing airway associated infection/inflammation and mucous plugging. Findings are similar to the recent prior exam. No evolving consolidation is seen. No pneumothorax is present. No pulmonary edema is seen. Diffuse osteopenia is noted. IMPRESSION: Chronic obstructive lung disease with diffuse bronchiectasis, most prominent in the lower lung zones. Associated airway associated infection/inflammation and mucous plugging is suspected. Findings are similar to the prior exam with no evolving dense consolidation seen. Assessment/Plan Assessment: Ms. Toledo is a pleasant 76-year-old female with PMH of severe bilateral bronchiectasis on preventative azithromycin and high frequency chest wall oscillation, recurrent pseudomonas pneumonia, chronic interstitial lung disease, 4 mm left upper lobe nodule, advanced COPD on home oxygen 2-3 L, HTN and SVT who was sent to the ED from [facility] for sudden onset of shortness of breath. Patient was given 1 X azithro, ceftriaxone, and ceftazidime with 125mg IV Solumedrol in the ED. Patient was admitted to with the following problems being addressed: 1. Acute hypoxic & hypercarbic respiratory failure 2/2 HCAP (Pseudomonas PNA) in the setting of end-stage COPD and bilateral severe bronchiectasis * Hypoxia, leukocytosis, fever, chills noted on presentation. * Pt has hx of pseudomonas PNA, and has healthcare exposure risk being an [facility] resident. She recently failed outpatient therapy with meropenem. * Rapid flu negative. * Pulm consult with Dr. Gonzalez placed and appreciated. He suggested starting patient on meropenem today as micro suggests her pseudomonas is resistant to ceftaz and she failed prior treatment with cipro. * Vancomycin and azithromycin have also been discontinued. * Reduce solumedrol to 40mg IV daily * Peridex oral solution started today * Roflumilast discontinued 10/[address] Gonzalez * TRC nebs as needed, acapella discontinued and chest PT ordered today * Continue robitussin AC & mucinex * Follow BC X2 show no growth to date, LRC shows light growth of pseudomonas with sensitivity to meropenem, urine for strep and legionella antigen negative 2. Hyponatremia * / SIADH * Na trending to normal today at 137 after discontinuation of fluids yesterday * Repeat BEP in AM 3. SVT/HTN * Continue diltiazem CD 180 mg PO daily 4. Continue home meds * Continue senna S, miralax, milk mag prn, lactobacillus, melatonin 3 mg, Vit d2 , Vitamin c DNR/DNI Heart Healthy Diet Mild pain pathways DVTP: Lovenox Problem List: 1. Pneumonia 2. COPD (chronic obstructive pulmonary disease) 3. Cough productive of purulent sputum 4. Acute respiratory distress 5. DNR (do not resuscitate) 6. DNI (do not intubate) 7. Hyponatremia Pain Ratin Pain Location: Low back pain. Pain Goal: Pain 4 or less Pain Plan: Tylenol for mild pain. Tomorrow's Labs & Rationales: None.
[2016-10-26 08:56] VITALS: BP 138/66
--- NOTE | 2016-10-26 11:37 | PN- Pulmonary ---
Subjective HPI/Critical Care Issues: Looks worse Still has sig cough Poor appetite Afebrile on steroids Objective Current Medications: Current Medications Sig/Jabier Start time Last Medication Dose Route Stop Time Status Admin Acetaminophen 650 MG .STK-MED ONE 10/25 2105 DC PO 10/25 210 Acetaminophen 650 MG Q6P PRN 10/23 0700 AC 10/26 PO 0806 Albuterol Sulfate 3 ML EVERY 4 HRS/AWAKE 10/23 0800 AC 10/26 INH 1101 Ascorbic Acid 250 MG DAILY 10/23 1000 AC 10/26 PO 1047 Benzonatate 100 MG BID PRN 10/23 2030 AC 10/26 PO 0807 Ceftazidime 2,000 MG IQ8 10/24 0245 DC 10/26 IV 0807 Chlorhexidine 15 ML TID 10/25 1600 CAN Gluconate PO Chlorhexidine 15 ML BID 10/23 1000 AC 10/26 Gluconate PO 1048 Ciprofloxacin 500 MG BID 10/26 1019 DC PO 10/30 1018 Diltiazem HCl 180 MG DAILY 10/23 0645 AC 10/26 PO 1048 Enoxaparin Sodium 40 MG DAILY 10/23 1000 AC 10/26 SC 1046 Guaifenesin 600 MG BID 10/23 1000 AC 10/26 PO 0807 Lorazepam 0.5 MG Q6P PRN 10/23 0700 AC PO 10/30 0659 Melatonin 3 MG AT BEDTIME 10/23 2200 AC 10/25 PO 2119 Meropenem 1 GM IQ8 10/26 1600 CAN IV Meropenem 1 GM Q12 10/26 1111 AC IV Methylprednisolone 40 MG DAILY 10/27 1000 AC IV Methylprednisolone 40 MG Q12 10/25 2200 DC 10/26 IV 1047 Polyethylene Glycol 17 GM DAILY 10/23 1000 AC 10/25 PO 0845 Roflumilast 500 MCG DAILY 10/23 1000 DC 10/25 PO 0847 Senna/Docusate Sodium 1 TAB BID PRN 10/23 0645 AC PO Tiotropium [place] 1 PUF DAILY 10/23 1000 AC 10/26 INH 1047 Laboratory Tests 10/26 0845 Chemistry Sodium (137 - 145 mmol/L) 137 Potassium (3.5 - 5.1 mmol/L) 4.1 Chloride (98 - 107 mmol/L) 87 L Carbon Dioxide (22 - 30 mmol/L) 44 H Anion Gap (5 - 16) 6 BUN (7 - 17 mg/dL) 10 Creatinine (0.5 - 1.0 mg/dL) 0.5 Estimated GFR (>60 ml/min) > 60 BUN/Creatinine Ratio (7 - 25 %) 20.0 Microbiology Date/Time Procedure - Status Source Growth 10/24 725 Urine Culture - COMP URINE ROUT 10/24 719 Legionella Antigen - COMP URINE ROUT 10/24 719 Streptococcus pneumoniae Antigen (M - COMP URINE ROUT 10/23 2299 Respiratory Culture - COMP LOWER RESP PSEUDOMONAS AERUGINOSA 10/23 2299 Gram Stain - COMP LOWER RESP Vital Signs & I&O Last 24 Hrs of Vitals and I&O: Vital Signs Date Time Temp Pulse Resp B/P Pulse O2 O2 Flow FiO2 Ox Delivery Rate 10/26 0856 97.7 90 20 138/66 95 10/26 0754 Nasal 3.0L Cannula 10/26 0047 98.8 82 20 120/60 95 Nasal 3.0L Cannula 10/26 0000 Nasal 3.0L Cannula 10/25 1630 96 Nasal 4.0L Cannula 10/25 1605 98.8 85 20 118/60 91 10/25 1600 Nasal 4.0L Cannula 10/25 1143 92 Nasal 4.0L Cannula Intake & Output 10/26 1600 10/26 0800 10/26 0000 Intake Total 140 450 Output Total 700 275 Balance -560 175 Intake, IV 20 Intake, Oral 120 450 Number 0 2 Bowel Movements Output, Urine 700 275 Laboratory Tests 10/26 0845 Chemistry Sodium (137 - 145 mmol/L) 137 Potassium (3.5 - 5.1 mmol/L) 4.1 Chloride (98 - 107 mmol/L) 87 L Carbon Dioxide (22 - 30 mmol/L) 44 H Anion Gap (5 - 16) 6 BUN (7 - 17 mg/dL) 10 Creatinine (0.5 - 1.0 mg/dL) 0.5 Estimated GFR (>60 ml/min) > 60 BUN/Creatinine Ratio (7 - 25 %) 20.0 Microbiology Date/Time Procedure - Status Source Growth 10/24 725 Urine Culture - COMP URINE ROUT 10/24 719 Legionella Antigen - COMP URINE ROUT 10/24 719 Streptococcus pneumoniae Antigen (M - COMP URINE ROUT 10/23 2299 Respiratory Culture - COMP LOWER RESP PSEUDOMONAS AERUGINOSA 10/23 2299 Gram Stain - COMP LOWER RESP Impression/Plan Impression/Plan Impression/Plan: Chest x-ray reviewed IMPRESSION: Chronic obstructive lung disease with diffuse bronchiectasis, most prominent in the lower lung zones. Associated airway associated infection/inflammation and mucous plugging is suspected. Findings are similar to the prior exam with no evolving dense consolidation seen. Physical Exam General Appearance: Alert, Oriented X3, Cooperative, Mild Distress Other Physical Findings: Skin rash on feet, chronic HEENT Atraumatic, PERRLA, EOMI Neck Supple, No JVD Cardiovascular tachycardic Lungs diffusely decreased breath sound, with diffuse rhonchi and crackles heard bilaterally Abdomen Normal Bowel Sounds, Soft, No Tenderness Neurological Normal Speech Extremities No Edema IMPRESSION This is a lady with very advanced end-stage lung disease with COPD and bilateral bronchiectasis with chronic Pseudomonas colonization, on maximum medical therapy now comes in with * Acute hypoxemic and hypercarbic respiratory failure due to worsening Pseudomonas infection. Pt has been on po cipro for one week prior to this admission and did not resond * Severe lung disease with end-stage COPD and bilateral severe bronchiectasis related to previous infections with Pseudomonas colonization with recurrent infection now with acute infection suggestive of Pseudomonas infection not responding to by mouth Cipro as out pt. PT now unfortunately have a ceftaz resistant organism * 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 RECOMMENDATION * Continue antibiotics, Change to IV meropenam and once she responds will switch to po cipro. * Dc other abx * Prednisone to 40 mg po qd * Prior to discharge will resume her outpatient azithromycin for prevention of Pseudomonas infections * Chlorhexidine mouthwash * Aggressive bowel regimen * Increase her calorie intake if pt able * Chest pt bid daily. Will reinstitute thoracic vest in the next few days * If she continues to have hyponatremia we will minimize her fluid intake * Diamox 500 mg po today, kcl 20 meq today * Hold her Daliresp, and vit c * Continue bowel regimen Discussed overall goals of care with the patient. Patient wishes to be DNR/DNI does not want to go to intensive care does not wish any other life-support she would like to continue her current therapy for now. If she continues to deteriorate if she goes into progressive respiratory failure then she wishes to be made comfort
--- NOTE | 2016-10-26 14:51 | NUR ---
PHYSICAL THERAPY- CONSULT RECEIVED, CHART REVIEWED. PT IS HUSKY BEDHOLD/ECF RESIDENT. HAVING COUGHING FITS CONTINUALLY AND UNCOMFORTABLE. WILL DEFER EVAL AT THIS TIME AND FOLLOW APPROPRIATE.
[2016-10-26 15:43] VITALS: BP 126/62
[2016-10-27 00:02] VITALS: BP 122/54
--- NOTE | 2016-10-27 00:09 | NUR ---
1600 ALERT AND ORIENTED X 3. VITAL SIGNS STABLE. ON 3L O2 VIA NASAL CANNULA NO DISCOMFORT NOTED. 1999 RESPIRATORY THERAPY NOTIFIED OF COUGHING AND SHORTNESS OF BREATH PATIENT RESTING AT THIS TIME. WILL CONTINUE TO MONITOR
--- NOTE | 2016-10-27 06:42 | PN- Housestaff ---
HALEIGH ABDI,JOSHUA 10/27/16 0642: Subjective Follow-up For: Acute hypoxic/hypercarbic respiratory failure Pseudomonas PNA COPD exacerbation Subjective: Patient seen and examined at bedside this AM. She continues to endorse malaise with decreased appetite. She reports she does not feel hungry and therefore has eaten very little. She also endorses sputum production that is excessive and bothersome. Review of Systems Constitutional: Reports: malaise. Denies: chills, fever. EENTM: Reports: nasal congestion. Denies: blurred vision, visual changes, hearing changes. Cardiovascular: Denies: chest pain, palpitations. Respiratory: Reports: cough, short of breath, sputum production, wheezing. Gastrointestinal: Denies: abdominal pain, constipation, diarrhea, distention, nausea. Genitourinary: Denies: discharge, hematuria, pain. Musculoskeletal: Reports: back pain. Skin: Denies: change in skin color, change in hair/nails. Neurological/Psychological: Denies: confusion, headache, numbness. Hematologic/Endocrine: Denies: bruising, bleeding. Immunologic/Allergic: Denies: splenectomy. Objective Last 24 Hrs of Vital Signs/I&O Vital Signs Date Time Temp Pulse Resp B/P Pulse O2 O2 Flow FiO2 Ox Delivery Rate 10/27 0900 94 Nasal 3.5L Cannula 10/27 0836 98.1 86 20 120/68 94 Nasal 3.0L Cannula 10/27 0800 Nasal 3.5L Cannula 10/27 0004 96 Nasal 3.0L Cannula 10/27 0002 97.7 90 20 122/54 88 Nasal 3.0L Cannula 10/27 0000 96 Nasal 3.5L Cannula 10/26 1615 88 Nasal 3.0L Cannula 10/26 1600 94 Nasal 3.0L Cannula 10/26 1543 97.3 80 19 126/62 94 Nasal 3.0L Cannula Intake & Output 10/27 1600 10/27 0800 10/27 0000 Intake Total 650 240 800 Output Total 662 820 8636 Balance -120 -660 -350 Intake, Oral 650 240 800 Number 0 Bowel Movements Output, Urine 548 290 7485 Physical Exam General Appearance: Alert, Oriented X3, Cooperative, Mild Distress Skin: No Rashes, No Significant Lesion HEENT: Atraumatic, Mucous Membr. moist/pink Neck: Supple, No JVD Lymphatic: Cervical nl Cardiovascular: Regular Rate, Normal S1, Normal S2 Lungs: Decreased breath sounds noted in all lung flores, rhonchi appreciated Abdomen: Normal Bowel Sounds, Soft, No Tenderness Neurological: Normal Speech, Normal Tone Extremities: No Clubbing, No Cyanosis, No Edema Current Medications: Current Medications Sig/Jabier Start time Last Medication Dose Route Stop Time Status Admin Acetaminophen 650 MG Q6P PRN 10/23 0700 AC 10/26 PO 0806 Acetazolamide 250 MG ONCE ONE 10/27 1500 AC PO 10/27 1501 Acetylcysteine 2 ML BID 10/27 1000 AC INH Albuterol Sulfate 3 ML EVERY 4 HRS/AWAKE 10/23 0800 AC 10/27 INH 1204 Benzonatate 100 MG BID PRN 10/23 2030 AC 10/26 PO 0807 Chlorhexidine 15 ML BID 10/23 1000 AC 10/27 Gluconate PO 0924 Diltiazem HCl 180 MG DAILY 10/23 0645 AC 10/27 PO 0923 Enoxaparin Sodium 40 MG DAILY 10/23 1000 AC 10/27 SC 0925 Guaifenesin 600 MG BID 10/23 1000 AC 10/27 PO 0923 Lorazepam 0.5 MG Q6P PRN 10/23 0700 AC PO 10/30 0659 Melatonin 3 MG AT BEDTIME 10/23 2200 AC 10/26 PO 2251 Meropenem 1 GM Q12 10/26 1111 AC 10/27 IV 0925 Patient Medication 1 ED .STK-MED ONE 10/27 1407 PR Teaching ED 10/27 1408 Polyethylene Glycol 17 GM DAILY 10/23 1000 AC 10/27 PO 0925 Potassium Chloride 40 MEQ ONCE ONE 10/27 1500 AC PO 10/27 1501 Prednisone 30 MG DAILY 10/28 1000 AC PO Prednisone 40 MG DAILY 10/27 1000 AC 10/27 PO 10/28 0000 0922 Senna/Docusate Sodium 1 TAB BID PRN 10/23 0645 AC PO Tiotropium [place] 1 PUF DAILY 10/23 1000 AC 10/27 INH 0924 Tramadol HCl 50 MG ONCE ONE 10/27 0945 DC 10/27 PO 10/27 0946 1012 Last 24 Hrs of Lab/Seth Results Last 24 Hrs of Labs/Mics: Laboratory Tests 10/27/16 0615: Anion Gap 3 L, Estimated GFR > 60, BUN/Creatinine Ratio 18.3 Orders Radiology Findings: EXAMINATION: XR PORTABLE CHEST CLINICAL INFORMATION: Dyspnea. COMPARISON: Chest x-ray dated 10/23/2016, 10/10/2015. CT scan of the chest dated 12/28/2014. TECHNIQUE: AP semierect portable view of the chest was obtained. FINDINGS: The cardiac mediastinal silhouette is within normal limits in size. Lungs bilaterally are hyperinflated and again demonstrate diffuse tubular bronchiectasis in the lower lungs and to a lesser extent in the upper and mid lung bilaterally. There is diffuse thickening of the central airways. Hazy peribronchial opacities are seen in the lower lobes bilaterally, left greater than right, likely representing airway associated infection/inflammation and mucous plugging. Findings are similar to the recent prior exam. No evolving consolidation is seen. No pneumothorax is present. No pulmonary edema is seen. Diffuse osteopenia is noted. IMPRESSION: Chronic obstructive lung disease with diffuse bronchiectasis, most prominent in the lower lung zones. Associated airway associated infection/inflammation and mucous plugging is suspected. Findings are similar to the prior exam with no evolving dense consolidation seen. Assessment/Plan Assessment: Ms. Toledo is a pleasant 76-year-old female with PMH of severe bilateral bronchiectasis on preventative azithromycin and high frequency chest wall oscillation, recurrent pseudomonas pneumonia, chronic interstitial lung disease, 4 mm left upper lobe nodule, advanced COPD on home oxygen 2-3 L, HTN and SVT who was sent to the ED from [place] for sudden onset of shortness of breath. Patient was given 1 X azithro, ceftriaxone, and ceftazidime with 125mg IV Solumedrol in the ED. Patient was admitted to with the following problems being addressed: 1. Acute hypoxic & hypercarbic respiratory failure 2/2 Pseudomonas PNA in the setting of end-stage COPD and bilateral severe bronchiectasis * Hypoxia, leukocytosis, fever, chills noted on presentation. * Pt has hx of pseudomonas PNA. She recently failed outpatient therapy with ciprofloxacin. * Rapid flu negative. * Pulm consult with Dr. Gonzalez placed and appreciated. He suggested continuing patient on meropenem as micro suggests her pseudomonas is resistant to ceftaz and she failed prior treatment with cipro. Will switch patient back to cipro once her condition improves. * Vancomycin and azithromycin have also been discontinued. * Prednisone 40 mg PO, will taper to 30 mg PO tomorrow * Peridex oral solution started today * Roflumilast discontinued 10/[address] Gonzalez * TRC nebs as needed, acapella discontinued and chest PT to continue * Continue robitussin AC & mucinex * Follow BC X2 show no growth to date, LRC shows light growth of pseudomonas with sensitivity to meropenem, urine for strep and legionella antigen negative 2. Hyponatremia * 2/2 SIADH * Na low today to 134 * Repeat BEP in AM 3. SVT/HTN * Continue diltiazem CD 180 mg PO daily 4. Continue home meds * Continue senna S, miralax, milk mag prn, lactobacillus, melatonin 3 mg, Vit d2 , Vitamin c 5. Malnutrition and decreased oral intake * Nutrition consult placed and appreciated, will follow up recommendations * Continue to encourse PO intake * Ensure added to diet DNR/DNI Heart Healthy Diet Mild pain pathways DVTP: Lovenox Problem List: 1. Cough productive of purulent sputum 2. COPD exacerbation 3. Acute respiratory distress 4. DNI (do not intubate) 5. DNR (do not resuscitate) Pain Ratin Pain Location: Lower back Pain Goal: Pain 4 or less Pain Plan: Tylenol for fever and pain. Tomorrow's Labs & Rationales: BEP (monitor hyponatremia and electrolytes in setting of decreased PO intake/on diamox) DEBBIE ABDI,[place] 10/27/16 1343: Attending MD Review Statement Attending Statement Attending MD Statement: examined this patient, discuss w/resident/PA/COTTON BALL BAGGER, agreed w/resident/PA/C[employer] BALL BAGGER, reviewed EMR data (avail), discussed with nursing, discussed with case mgmt, amended to note Attending Assessment/Plan: Patient seen and examined. Still very lethargic. Still with poor appetite. She continues to report productive cough with difficulty expectorating however she did not appear to be coughing as intensely today compared to the previous days. She remains afebrile and hemodynamically stable. On examination she has minimal rhonchi bilaterally although entry is markedly diminished. Recommendations: -Continue IV meropenem as recommended by the pulmonary service and transition to oral antibiotics once indicated. -Continue bronchodilator therapy and oral steroid therapy. -Obtain nutritional consult for her malnutrition. (Patient on ensure. -Mobilize patient as tolerated. -Patient remains DNR/DNI with no heroic measures. -Long-term prognosis is guarded due to her advanced disease.
[2016-10-27 08:36] VITALS: BP 120/68
--- NOTE | 2016-10-27 09:21 | NUR ---
PHYSICAL THERAPY- S/W PT'S RN, PT REMAINS W/ CONTINUAL COUGHING FITS THAT RESULT IN SIGNIFICANT WHOLE BODY SORENESS AND GENERAL MALAISE. PT HAS BEEN GETTING OOB FOR COMMODE USE NEEDED DURING DAY, ONLY LIMITED 2* ABOVE. ONCE MEDICALLY STABLE, PLAN IS FOR RETURN TO ECF, HAS HUSKY BEDHOLD. IF FURTHER NEEDS ARISE, PLEASE RECONSULT.
--- NOTE | 2016-10-27 10:42 | NUR ---
Consult received for poor PO intake, thank you for consult. Refer to nutrition assessment 10/26/16. RD following
--- NOTE | 2016-10-27 13:40 | PN- Pulmonary ---
Subjective HPI/Critical Care Issues: DOing relatively fair Still fatigued Nauseasous Poor appetite Objective Current Medications: Current Medications Sig/Jabier Start time Last Medication Dose Route Stop Time Status Admin Acetaminophen 650 MG Q6P PRN 10/23 0700 AC 10/26 PO 0806 Acetylcysteine 2 ML BID 10/27 1000 AC INH Albuterol Sulfate 3 ML EVERY 4 HRS/AWAKE 10/23 0800 AC 10/27 INH 1204 Benzonatate 100 MG BID PRN 10/23 2030 AC 10/26 PO 0807 Chlorhexidine 15 ML BID 10/23 1000 AC 10/27 Gluconate PO 0924 Diltiazem HCl 180 MG DAILY 10/23 0645 AC 10/27 PO 0923 Enoxaparin Sodium 40 MG DAILY 10/23 1000 AC 10/27 SC 0925 Guaifenesin 600 MG BID 10/23 1000 AC 10/27 PO 0923 Lorazepam 0.5 MG Q6P PRN 10/23 0700 AC PO 10/30 0659 Melatonin 3 MG AT BEDTIME 10/23 2200 AC 10/26 PO 2251 Meropenem 1 GM Q12 10/26 1111 AC 10/27 IV 0925 Polyethylene Glycol 17 GM DAILY 10/23 1000 AC 10/27 PO 0925 Prednisone 30 MG DAILY 10/28 1000 AC PO Prednisone 40 MG DAILY 10/27 1000 AC 10/27 PO 10/28 0000 0922 Senna/Docusate Sodium 1 TAB BID PRN 10/23 0645 AC PO Tiotropium [place] 1 PUF DAILY 10/23 1000 AC 10/27 INH 0924 Tramadol HCl 50 MG ONCE ONE 10/27 0945 DC 10/27 PO 10/27 0946 1012 Vital Signs & I&O Last 24 Hrs of Vitals and I&O: Vital Signs Date Time Temp Pulse Resp B/P Pulse O2 O2 Flow FiO2 Ox Delivery Rate 10/27 0900 94 Nasal 3.5L Cannula 10/27 0836 98.1 86 20 120/68 94 Nasal 3.0L Cannula 10/27 0800 Nasal 3.5L Cannula 10/27 0004 96 Nasal 3.0L Cannula 10/27 0002 97.7 90 20 122/54 88 Nasal 3.0L Cannula 10/27 0000 96 Nasal 3.5L Cannula 10/26 1615 88 Nasal 3.0L Cannula 10/26 1600 94 Nasal 3.0L Cannula 10/26 1543 97.3 80 19 126/62 94 Nasal 3.0L Cannula Intake & Output 10/27 1600 10/27 0800 10/27 0000 Intake Total 240 800 Output Total 900 1150 Balance -660 -350 Intake, Oral 240 800 Number 0 Bowel Movements Output, Urine 900 1150 Impression/Plan Impression/Plan Impression/Plan: Chest x-ray reviewed IMPRESSION: Chronic obstructive lung disease with diffuse bronchiectasis, most prominent in the lower lung zones. Associated airway associated infection/inflammation and mucous plugging is suspected. Findings are similar to the prior exam with no evolving dense consolidation seen. Physical Exam General Appearance: Alert, Oriented X3, Cooperative, Mild Distress Other Physical Findings: Skin rash on feet, chronic HEENT Atraumatic, PERRLA, EOMI Neck Supple, No JVD Cardiovascular tachycardic Lungs diffusely decreased breath sound, with diffuse rhonchi and crackles heard bilaterally Abdomen Normal Bowel Sounds, Soft, No Tenderness Neurological Normal Speech Extremities No Edema IMPRESSION This is a lady with very advanced end-stage lung disease with COPD and bilateral bronchiectasis with chronic Pseudomonas colonization, on maximum medical therapy now comes in with * REsolving Acute hypoxemic and hypercarbic respiratory failure due to worsening Pseudomonas infection. Pt has been on po cipro for one week prior to this admission and did not respond * Severe lung disease with end-stage COPD and bilateral severe bronchiectasis related to previous infections with Pseudomonas colonization with recurrent infection now with acute infection suggestive of Pseudomonas infection not responding to by mouth Cipro as out pt. PT now unfortunately have a ceftaz resistant organism * 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 RECOMMENDATION * Continue antibiotics, IV meropenam and once she responds will switch to po cipro. * Prednisone to 40 mg po qd and taper * Prior to discharge will resume her outpatient azithromycin for prevention of Pseudomonas infections * Chlorhexidine mouthwash * Aggressive bowel regimen * Increase her calorie intake if pt able * Chest pt bid daily. Will reinstitute thoracic vest tommorow * Potassium 40 meq today po * Diamox 250 po today * Hold her Daliresp, and vit c * Continue bowel regimen Discussed overall goals of care with the patient and her sister today. Patient wishes to be DNR/DNI does not want to go to intensive care does not wish any other life-support she would like to continue her current therapy for now. If she continues to deteriorate if she goes into progressive respiratory failure then she wishes to be made comfort
[2016-10-27 16:19] VITALS: BP 128/54
[2016-10-28 00:45] VITALS: BP 120/56
--- NOTE | 2016-10-28 06:51 | PN- Housestaff ---
See Addendum Subjective Follow-up For: COPD exacerbation Pseudomonas PNA Subjective: Patient seen and examined at bedside this AM. She remains lethargic and reports she cannot tolerate her ensure as it is too sweet for her. She also reports that she continues to cough up a lot of sputum and this is extremely bothersome to her. Review of Systems Constitutional: Reports: malaise, weakness. Denies: chills, fever. EENTM: Reports: nasal congestion. Denies: throat pain, throat swelling. Cardiovascular: Denies: chest pain, palpitations. Respiratory: Reports: cough, short of breath, sputum production, wheezing. Gastrointestinal: Denies: abdominal pain, bloating, constipation, diarrhea, nausea. Genitourinary: Denies: dysuria, frequency. Musculoskeletal: Denies: back pain. Skin: Reports: erythema (Bilateral feet, chronic). Denies: change in skin color, change in hair/nails. Neurological/Psychological: Denies: confusion, headache. Hematologic/Endocrine: Denies: bruising, bleeding. Immunologic/Allergic: Denies: splenectomy. Objective Last 24 Hrs of Vital Signs/I&O Vital Signs Date Time Temp Pulse Resp B/P Pulse O2 O2 Flow FiO2 Ox Delivery Rate 10/28 0909 95 Nasal 3.5L Cannula 10/28 0723 98.2 80 20 120/70 96 10/28 0103 98 Nasal 3.5L Cannula 10/28 0045 97.9 75 18 120/56 98 Room Air 10/28 0000 Nasal 3.0L Cannula 10/27 1619 97.9 81 18 128/54 94 Nasal 3.5L Cannula 10/27 1600 Nasal 3.5L Cannula Intake & Output 10/28 1600 10/28 0800 10/28 0000 Intake Total 250 800 Output Total 225 775 Balance 25 25 Intake, IV 0 Intake, Oral 250 800 Number 0 Bowel Movements Output, Urine 225 775 Physical Exam General Appearance: Alert, Oriented X3, Cooperative, Mild Distress Skin: No Significant Lesion, Bilateral erythema on soles of feet, mildly itchy, patient reports this is chronic HEENT: Atraumatic, Mucous Membr. moist/pink Neck: Supple, No JVD Lymphatic: Cervical nl Cardiovascular: Regular Rate, Normal S1, Normal S2 Lungs: Bilateral decreased breath sounds though mild improvement from yesterday, rhonchi continue to be appreciated most profoundly at bilateral bases Abdomen: Normal Bowel Sounds, Soft, No Tenderness Neurological: Normal Speech, Normal Tone Extremities: No Clubbing, No Cyanosis, No Edema Vascular: Pulses Symmetrical Current Medications: Current Medications Sig/Jabier Start time Last Medication Dose Route Stop Time Status Admin Acetaminophen 650 MG Q6P PRN 10/23 0700 AC 10/26 PO 0806 Acetazolamide 250 MG ONCE ONE 10/27 1500 DC 10/27 PO 10/27 1501 1621 Acetylcysteine 2 ML BID 10/27 1000 DC 10/28 INH 0856 Albuterol Sulfate 3 ML EVERY 4 HRS/AWAKE 10/23 0800 AC 10/28 INH 0855 Benzonatate 100 MG BID PRN 10/23 2030 AC 10/27 PO 2044 Chlorhexidine 15 ML BID 10/23 1000 AC 10/28 Gluconate PO 0918 Ciprofloxacin 500 MG BID 10/28 1000 DC PO 11/01 0959 Diltiazem HCl 180 MG DAILY 10/23 0645 AC 10/28 PO 0918 Enoxaparin Sodium 40 MG DAILY 10/23 1000 AC 10/28 SC 0919 Guaifenesin 600 MG BID 10/23 1000 AC 10/28 PO 0918 Lorazepam 0.5 MG Q6P PRN 10/23 0700 AC PO 10/30 0659 Melatonin 3 MG AT BEDTIME 10/23 2200 AC 10/27 PO 2220 Meropenem 1 GM Q12 10/28 2200 AC IV Meropenem 1 GM Q12 10/26 1111 DC 10/28 IV 0919 Patient Medication 1 ED .STK-MED ONE 10/27 1407 NM Teaching ED 10/27 1408 Polyethylene Glycol 17 GM DAILY 10/23 1000 AC 10/27 PO 0925 Potassium Chloride 40 MEQ ONCE ONE 10/28 1130 AC PO 10/28 1131 Potassium Chloride 40 MEQ ONCE ONE 10/27 1500 DC 10/27 PO 10/27 1501 1621 Prednisone 30 MG DAILY 10/28 1000 AC 10/28 PO 0918 Prednisone 40 MG DAILY 10/27 1000 DC 10/27 PO 10/28 0000 0922 Senna/Docusate Sodium 1 TAB BID PRN 10/23 0645 AC 10/27 PO 2220 Tiotropium [place] 1 PUF DAILY 10/23 1000 AC 10/28 INH 0918 Last 24 Hrs of Lab/Seth Results Last 24 Hrs of Labs/Mics: Laboratory Tests 01/26/17 0625: Anion Gap 3 L, Estimated GFR > 60, BUN/Creatinine Ratio 20.0 Orders Radiology Findings: EXAMINATION: XR PORTABLE CHEST CLINICAL INFORMATION: Dyspnea. COMPARISON: Chest x-ray dated 10/23/2016, 10/10/2015. CT scan of the chest dated 12/28/2014. TECHNIQUE: AP semierect portable view of the chest was obtained. FINDINGS: The cardiac mediastinal silhouette is within normal limits in size. Lungs bilaterally are hyperinflated and again demonstrate diffuse tubular bronchiectasis in the lower lungs and to a lesser extent in the upper and mid lung bilaterally. There is diffuse thickening of the central airways. Hazy peribronchial opacities are seen in the lower lobes bilaterally, left greater than right, likely representing airway associated infection/inflammation and mucous plugging. Findings are similar to the recent prior exam. No evolving consolidation is seen. No pneumothorax is present. No pulmonary edema is seen. Diffuse osteopenia is noted. IMPRESSION: Chronic obstructive lung disease with diffuse bronchiectasis, most prominent in the lower lung zones. Associated airway associated infection/inflammation and mucous plugging is suspected. Findings are similar to the prior exam with no evolving dense consolidation seen. Assessment/Plan Assessment: Ms. Toledo is a pleasant 76-year-old female with PMH of severe bilateral bronchiectasis on preventative azithromycin and high frequency chest wall oscillation, recurrent pseudomonas pneumonia, chronic interstitial lung disease, 4 mm left upper lobe nodule, advanced COPD on home oxygen 2-3 L, HTN and SVT who was sent to the ED from [place] for sudden onset of shortness of breath. Patient was given 1 X azithro, ceftriaxone, and ceftazidime with 125mg IV Solumedrol in the ED. Patient was admitted to with the following problems being addressed: 1. Acute hypoxic & hypercarbic respiratory failure 2/2 Pseudomonas PNA in the setting of end-stage COPD and bilateral severe bronchiectasis * Hypoxia, leukocytosis, fever, chills noted on presentation. * Pt has hx of pseudomonas PNA. She recently failed outpatient therapy with ciprofloxacin. * Rapid flu negative. * Pulm consult with Dr. Gonzalez placed and appreciated. He suggested continuing patient on meropenem as micro suggests her pseudomonas is resistant to ceftaz and she failed prior treatment with cipro. If patient improves, will possibly place a midline and have her continue meropenem at [facility]. * Vancomycin and azithromycin have also been discontinued. * Prednisone 30 mg PO today * Peridex oral solution started today * Roflumilast discontinued 10/[address] Gonzalez * TRC nebs as needed, acapella discontinued and chest PT to continue * Continue robitussin AC & mucinex * Follow BC X2 show no growth to date, LRC shows light growth of pseudomonas with sensitivity to meropenem, urine for strep and legionella antigen negative * Add diamox when K>4 and HCO3 >40 2. 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 SVT/HTN * Continue diltiazem CD 180 mg PO daily 4. Continue home meds * Continue senna S, miralax, milk mag prn, lactobacillus, melatonin 3 mg, Vit d2 , Vitamin c 5. Malnutrition and decreased oral intake * Nutrition consult placed and appreciated, will follow up recommendations * Continue to encourse PO intake * Ensure added to diet, though patient reports she does not like the flavor, will contact automatic tire tester to see what other supplements available DNR/DNI Heart Healthy Diet Mild pain pathways DVTP: Lovenox Problem List: 1. Acute respiratory distress 2. COPD exacerbation 3. DNR (do not resuscitate) 4. DNI (do not intubate) 5. Tachycardia 6. Hyponatremia 7. Pneumonia Pain Ratin Pain Location: n/a Pain Goal: Remain pain free Pain Plan: Mild pain pathway Tomorrow's Labs & Rationales: BEP (monitor K and HCO3 for diamox administration)
[2016-10-28 07:23] VITALS: BP 120/70
--- NOTE | 2016-10-28 08:57 | Patient Discharge Instructions ---
Discharge Instructions Diet Recommended Diet: Heart Healthy Activity Full Activity/No Limits: Yes (as tolerated) Acute Coronary Syndrome Inclusion Criteria At DC or during hospital stay patient has or had the following: ACS DIAGNOSIS No Discharge Core Measures Meds if any: Prescribed or Continued at Discharge Meds if any: NOT Prescribed or Continued at Discharge Congestive Heart Failure Inclusion Criteria At DC or during hospital stay patient has or had the following: CHF DIAGNOSIS No Discharge Core Measures Meds if any: Prescribed or Continued at Discharge Meds if any: NOT Prescribed or Continued at Discharge Cerebrovascular accident Inclusion Criteria At DC or during hospital stay patient has or had the following: CVA/TIA Diagnosis No Discharge Core Measures Meds if any: Prescribed or Continued at Discharge Meds if any: NOT Prescribed or Continued at Discharge Venous thromboembolism Inclusion Criteria VTE Diagnosis No VTE Type NONE VTE Confirmed by (Test) NONE Discharge Core Measures - Per Current guidelines, there needs to be overlap - treatment for the first 5 days of Warfarin therapy. - If discharged on Warfarin prior to 5 days of - overlap therapy, the patient will need to be - assessed for post discharge needs including - *Post discharge parental anticoagulation - *Warfarin and/or parental anticoagulation education - *Follow up date to check INR post discharge At least 5 days overlap therapy as Inpatient No Meds if any: Prescribed or Continued at Discharge Note: Overlap Therapy is Warfarin and Anticoagulant Meds if any: NOT Prescribed or Continued at Discharge
--- NOTE | 2016-10-28 10:44 | PN- Pulmonary ---
Subjective HPI/Critical Care Issues: Still feels lousy Fatigued No appetite Still has copious sputum Objective Current Medications: Current Medications Sig/Jabier Start time Last Medication Dose Route Stop Time Status Admin Acetaminophen 650 MG Q6P PRN 10/23 0700 AC 10/26 PO 0806 Acetazolamide 250 MG ONCE ONE 10/27 1500 DC 10/27 PO 10/27 1501 1621 Acetylcysteine 2 ML BID 10/27 1000 DC 10/28 INH 0856 Albuterol Sulfate 3 ML EVERY 4 HRS/AWAKE 10/23 0800 AC 10/28 INH 0855 Benzonatate 100 MG BID PRN 10/23 2030 AC 10/27 PO 2044 Chlorhexidine 15 ML BID 10/23 1000 AC 10/28 Gluconate PO 0918 Ciprofloxacin 500 MG BID 10/28 1000 DC PO 11/01 0959 Diltiazem HCl 180 MG DAILY 10/23 0645 AC 10/28 PO 0918 Enoxaparin Sodium 40 MG DAILY 10/23 1000 AC 10/28 SC 0919 Guaifenesin 600 MG BID 10/23 1000 AC 10/28 PO 0918 Lorazepam 0.5 MG Q6P PRN 10/23 0700 AC PO 10/30 0659 Melatonin 3 MG AT BEDTIME 10/23 2200 AC 10/27 PO 2220 Meropenem 1 GM Q12 10/28 2200 AC IV Meropenem 1 GM Q12 10/26 1111 DC 10/28 IV 0919 Patient Medication 1 ED .STK-MED ONE 10/27 1407 MN Teaching ED 10/27 1408 Polyethylene Glycol 17 GM DAILY 10/23 1000 AC 10/27 PO 0925 Potassium Chloride 40 MEQ ONCE ONE 10/27 1500 DC 10/27 PO 10/27 1501 1621 Prednisone 30 MG DAILY 10/28 1000 AC 10/28 PO 0918 Prednisone 40 MG DAILY 10/27 1000 DC 10/27 PO 10/28 0000 0922 Senna/Docusate Sodium 1 TAB BID PRN 10/23 0645 AC 10/27 PO 2220 Tiotropium [place] 1 PUF DAILY 10/23 1000 AC 10/28 INH 0918 Vital Signs & I&O Last 24 Hrs of Vitals and I&O: Vital Signs Date Time Temp Pulse Resp B/P Pulse O2 O2 Flow FiO2 Ox Delivery Rate 10/28 0909 95 Nasal 3.5L Cannula 10/28 07 98.2 80 20 120/70 96 10/28 0103 98 Nasal 3.5L Cannula 10/28 0045 97.9 75 18 120/56 98 Room Air 10/28 0000 Nasal 3.0L Cannula 10/27 1619 97.9 81 18 128/54 94 Nasal 3.5L Cannula 10/27 1600 Nasal 3.5L Cannula Intake & Output 10/28 1600 10/28 0800 10/28 0000 Intake Total 250 800 Output Total 225 775 Balance 25 25 Intake, IV 0 Intake, Oral 250 800 Number 0 Bowel Movements Output, Urine 225 775 Impression/Plan Impression/Plan Impression/Plan: Chest x-ray reviewed IMPRESSION: Chronic obstructive lung disease with diffuse bronchiectasis, most prominent in the lower lung zones. Associated airway associated infection/inflammation and mucous plugging is suspected. Findings are similar to the prior exam with no evolving dense consolidation seen. Physical Exam General Appearance: Alert, Oriented X3, Cooperative, Mild Distress Other Physical Findings: Skin rash on feet, chronic HEENT Atraumatic, PERRLA, EOMI Neck Supple, No JVD Cardiovascular tachycardic Lungs diffusely decreased breath sound, with diffuse rhonchi and crackles heard bilaterally Abdomen Normal Bowel Sounds, Soft, No Tenderness Neurological Normal Speech Extremities No Edema IMPRESSION This is a lady with very advanced end-stage lung disease with COPD and bilateral bronchiectasis with chronic Pseudomonas colonization, on maximum medical therapy now comes in with * REsolving Acute hypoxemic and hypercarbic respiratory failure due to worsening Pseudomonas infection. Pt has been on po cipro for one week prior to this admission and did not respond * Severe lung disease with end-stage COPD and bilateral severe bronchiectasis related to previous infections with Pseudomonas colonization with recurrent infection now with acute infection suggestive of Pseudomonas infection not responding to by mouth Cipro as out pt. 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 PLease note pt has been on cipro on and off uptil recently for her treatment and clearly Failed RECOMMENDATION * Continue antibiotics, IV meropenam for one week minimum and will switch to po cipro to finish a total abx of 14 days. IF stable pt can have a mid line and return to snf with iv abx over the next few days * Prednisone to 30 mg qd and taper to five mg * Prior to discharge will resume her outpatient azithromycin for prevention of Pseudomonas infections * Chlorhexidine mouthwash * Aggressive bowel regimen * Increase her calorie intake if pt able * Chest pt bid daily. Can stop mucomyst after today neb rx cont chest pt only * Potassium 40 meq today po * Diamox 250 po if hco3 more than 40 if potassium is more than 4 * Hold her Daliresp, and vit c * Continue bowel regimen Discussed overall goals of care with the patient and her sister today. Patient wishes to be DNR/DNI does not want to go to intensive care does not wish any other life-support she would like to continue her current therapy for now. If she continues to deteriorate if she goes into progressive respiratory failure then she wishes to be made comfort
[2016-10-28 16:19] VITALS: BP 130/60
[2016-10-29 00:16] VITALS: BP 120/58
--- NOTE | 2016-10-29 07:20 | PN- Housestaff ---
JOSHUA RICARDO MD 10/29/16 0720: Subjective Follow-up For: COPD exacerbation Pseudomonas PNA Subjective: Patient seen and examined at bedside this AM. She reports she continues to feel weak with little to no appetite. She did not like the ensure as it was to sweet but is willing to try a magic cup for supplementation. She also endorses poor sleep due to difficulty breathing. Review of Systems Constitutional: Reports: malaise. Denies: chills, fever. EENTM: Reports: nasal congestion. Denies: blurred vision, visual changes, hearing changes. Cardiovascular: Denies: chest pain, palpitations. Respiratory: Reports: cough, short of breath, sputum production, wheezing. Gastrointestinal: Denies: abdominal pain, bloating, constipation, diarrhea. Genitourinary: Denies: dysuria, pain. Musculoskeletal: Denies: back pain. Skin: Reports: erythema (Bilateral soles, chronic). Denies: change in skin color, change in hair/nails. Neurological/Psychological: Denies: confusion, headache, numbness. Hematologic/Endocrine: Denies: bruising, bleeding. Objective Last 24 Hrs of Vital Signs/I&O Vital Signs Date Time Temp Pulse Resp B/P Pulse O2 O2 Flow FiO2 Ox Delivery Rate 10/29 0808 97.6 76 18 120/62 97 Nasal 4.0L Cannula 10/29 0800 Nasal 3.5L Cannula 10/29 0016 97.6 86 20 120/58 95 Nasal 4.0L Cannula 10/29 0000 95 Nasal 3.0L Cannula 10/28 1619 99.3 85 20 130/60 99 Nasal 3.5L Cannula 10/28 1615 92 Nasal 3.5L Cannula Intake & Output 10/29 1600 10/29 0800 10/29 0000 Intake Total 270 Output Total Balance 270 Intake, Oral 270 Physical Exam General Appearance: Alert, Oriented X3, Cooperative, Mild Distress Skin: No Breakdown, Bilateral erythema of soles of feet. HEENT: Atraumatic, Mucous Membr. moist/pink Neck: Supple, No JVD Lymphatic: Cervical nl Cardiovascular: Regular Rate, Normal S1, Normal S2 Lungs: Bilateral decreased breath sounds, rhonchi appreciated Abdomen: Normal Bowel Sounds, Soft, No Tenderness, No Hepatospenomegaly, No Masses Neurological: Normal Speech, Normal Tone Extremities: No Clubbing, No Cyanosis, No Edema Vascular: Pulses Symmetrical Current Medications: Current Medications Sig/Jabier Start time Last Medication Dose Route Stop Time Status Admin Acetaminophen 650 MG .STK-MED ONE 10/28 2034 DC PO 10/28 203 Acetaminophen 650 MG Q6P PRN 10/23 0700 AC 10/28 PO 2046 Albuterol Sulfate 3 ML EVERY 4 HRS/AWAKE 10/23 0800 AC 10/29 INH 0855 Benzonatate 100 MG BID PRN 10/23 2030 AC 10/27 PO 2044 Chlorhexidine 15 ML BID 10/23 1000 AC 10/29 Gluconate PO 0915 Diltiazem HCl 180 MG DAILY 10/23 0645 AC 10/29 PO 0914 Enoxaparin Sodium 40 MG DAILY 10/23 1000 AC 10/29 SC 0914 Guaifenesin 600 MG BID 10/23 1000 AC 10/29 PO 0915 Lorazepam 0.5 MG Q6P PRN 10/23 0700 AC PO 10/30 0659 Melatonin 3 MG AT BEDTIME 10/23 2200 AC 10/28 PO 2046 Meropenem 1 GM Q12 10/28 2200 AC 10/29 IV 0914 Polyethylene Glycol 17 GM DAILY 10/23 1000 AC 10/29 PO 0914 Potassium Chloride 40 MEQ ONCE ONE 10/29 1130 DC PO 10/29 1131 Prednisone 20 MG DAILY 10/30 1000 AC PO Prednisone 30 MG DAILY 10/28 1000 AC 10/29 PO 10/30 0000 0914 Senna/Docusate Sodium 1 TAB BID PRN 10/23 0645 AC 10/27 PO 2220 Tiotropium [place] 1 PUF DAILY 10/23 1000 AC 10/29 INH 0915 Last 24 Hrs of Lab/Seth Results Last 24 Hrs of Labs/Mics: Laboratory Tests 10/29/16 0640: Anion Gap 3 L, Estimated GFR > 60, BUN/Creatinine Ratio 25.0 Orders Radiology Findings: EXAMINATION: XR PORTABLE CHEST CLINICAL INFORMATION: Dyspnea. COMPARISON: Chest x-ray dated 10/23/2016, 10/10/2015. CT scan of the chest dated 12/28/2014. TECHNIQUE: AP semierect portable view of the chest was obtained. FINDINGS: The cardiac mediastinal silhouette is within normal limits in size. Lungs bilaterally are hyperinflated and again demonstrate diffuse tubular bronchiectasis in the lower lungs and to a lesser extent in the upper and mid lung bilaterally. There is diffuse thickening of the central airways. Hazy peribronchial opacities are seen in the lower lobes bilaterally, left greater than right, likely representing airway associated infection/inflammation and mucous plugging. Findings are similar to the recent prior exam. No evolving consolidation is seen. No pneumothorax is present. No pulmonary edema is seen. Diffuse osteopenia is noted. IMPRESSION: Chronic obstructive lung disease with diffuse bronchiectasis, most prominent in the lower lung zones. Associated airway associated infection/inflammation and mucous plugging is suspected. Findings are similar to the prior exam with no evolving dense consolidation seen. Assessment/Plan Assessment: Ms. Toledo is a pleasant 76-year-old female with PMH of severe bilateral bronchiectasis on preventative azithromycin and high frequency chest wall oscillation, recurrent pseudomonas pneumonia, chronic interstitial lung disease, 4 mm left upper lobe nodule, advanced COPD on home oxygen 2-3 L, HTN and SVT who was sent to the ED from [place] for sudden onset of shortness of breath. Patient was given 1 X azithro, ceftriaxone, and ceftazidime with 125mg IV Solumedrol in the ED. Patient was admitted to with the following problems being addressed: 1. Acute hypoxic & hypercarbic respiratory failure 2/2 Pseudomonas PNA in the setting of end-stage COPD and bilateral severe bronchiectasis * Hypoxia, leukocytosis, fever, chills noted on presentation. * Pt has hx of pseudomonas PNA. She recently failed outpatient therapy with ciprofloxacin. * Rapid flu negative. * Pulm consult with Dr. Gonzalez placed and appreciated. He suggested continuing patient on meropenem as micro suggests her pseudomonas is resistant to ceftaz and she failed prior treatment with cipro. If patient improves, will possibly place a midline and have her [facility] OR switch to cipro prior to [facility]. * Prednisone 30 mg PO today, switch to 20 mg PO prednisone tomorrow * Peridex oral solution to continue * Roflumilast discontinued 10/[address] Gonzalez * TRC nebs as needed, acapella discontinued and chest PT to continue * Continue robitussin AC & mucinex * Follow BC X2 show no growth (final), LRC shows light growth of pseudomonas with sensitivity to meropenem, urine for strep and legionella antigen negative * Add diamox when K>4 and HCO3 >40 2. Hyponatremia * 2/2 SIADH * Na low today to 135 * Repeat BEP in AM, monitor Na, K, HCO3 3. SVT/HTN * Continue diltiazem CD 180 mg PO daily 4. Continue home meds * Continue senna S, miralax, milk mag prn, lactobacillus, melatonin 3 mg, Vit d2 , Vitamin c 5. Malnutrition and decreased oral intake * Nutrition consult placed and appreciated, will follow up recommendations * Continue to encourse PO intake * Ensure added to diet, though patient reports she does not like the flavor, have switched to magic cup, will see how patient responds to this 6. Goals of care * Both Dr. Gonzalez and Dr. Haas have discussed goals of care with patient, she would prefer transition to comfort measures if her condition deteriorates in the future DNR/DNI Heart Healthy Diet Mild pain pathways DVTP: Lovenox Problem List: 1. COPD exacerbation 2. Acute respiratory distress 3. DNR (do not resuscitate) 4. DNI (do not intubate) 5. SOB (shortness of breath) 6. Tachycardia 7. Hyponatremia Pain Ratin Pain Location: N/A Pain Goal: Remain pain free Pain Plan: Mild pain pathways Tomorrow's Labs & Rationales: BEP (monitor HCO3 for diamox therapy and K in setting of K supplementation) DEBBIE ABDI,[facility] 10/29/16 1252: Attending MD Review Statement Attending Statement Attending MD Statement: examined this patient, discuss w/resident/PA/FOUR SLIDE MACHINE OPERATOR, agreed w/resident/PA/FOUR SLIDE MACHINE OPERATOR, reviewed EMR data (avail), discussed with nursing, discussed with case mgmt, amended to note Attending Assessment/Plan: Patient seen and examined. She remained stable with no progression of her symptoms. There has been no significant improvement as she remains lethargic with a productive cough. She does admit that the symptoms have not worsened. I did discuss the options of palliative care with the patient. She did acknowledge a desire to proceed with comfort measures only should her clinical course deteriorate in the future. Evaluation by her director of content marketing noted. Continue treatment as recommended.
[2016-10-29 08:01] VITALS: BP 130/72
[2016-10-29 08:08] VITALS: BP 120/62
--- NOTE | 2016-10-29 11:10 | PN- Pulmonary ---
Subjective HPI/Critical Care Issues: Appears much improved. Appetite is improving. Feels much more better. Wishes to continue present therapy Objective Current Medications: Current Medications Sig/Jabier Start time Last Medication Dose Route Stop Time Status Admin Acetaminophen 650 MG .STK-MED ONE 10/28 2034 DC PO 10/28 2035 Acetaminophen 650 MG Q6P PRN 10/23 0700 AC 10/28 PO 2046 Albuterol Sulfate 3 ML EVERY 4 HRS/AWAKE 10/23 0800 AC 10/29 INH 0855 Benzonatate 100 MG BID PRN 10/23 2030 AC 10/27 PO 2044 Chlorhexidine 15 ML BID 10/23 1000 AC 10/29 Gluconate PO 0915 Diltiazem HCl 180 MG DAILY 10/23 0645 AC 10/29 PO 0914 Enoxaparin Sodium 40 MG DAILY 10/23 1000 AC 10/29 SC 0914 Guaifenesin 600 MG BID 10/23 1000 AC 10/29 PO 0915 Lorazepam 0.5 MG Q6P PRN 10/23 0700 AC PO 10/30 0659 Melatonin 3 MG AT BEDTIME 10/23 2200 AC 10/28 PO 2046 Meropenem 1 GM Q12 10/28 2200 AC 10/29 IV 0914 Polyethylene Glycol 17 GM DAILY 10/23 1000 AC 10/29 PO 0914 Potassium Chloride 40 MEQ ONCE ONE 10/28 1130 DC 10/28 PO 10/28 1131 1414 Prednisone 20 MG DAILY 10/30 1000 AC PO Prednisone 30 MG DAILY 10/28 1000 AC 10/29 PO 10/30 0000 0914 Senna/Docusate Sodium 1 TAB BID PRN 10/23 0645 AC 10/27 PO 2220 Tiotropium [place] 1 PUF DAILY 10/23 1000 AC 10/29 INH 0915 Vital Signs & I&O Last 24 Hrs of Vitals and I&O: Vital Signs Date Time Temp Pulse Resp B/P Pulse O2 O2 Flow FiO2 Ox Delivery Rate 10/29 0808 97.6 76 18 120/62 97 Nasal 4.0L Cannula 10/29 0800 Nasal 3.5L Cannula 10/29 0016 97.6 86 20 120/58 95 Nasal 4.0L Cannula 10/29 0000 95 Nasal 3.0L Cannula 10/28 1619 99.3 85 20 130/60 99 Nasal 3.5L Cannula 10/28 1615 92 Nasal 3.5L Cannula Intake & Output 10/29 1600 10/29 0800 10/29 0000 Intake Total 270 Output Total Balance 270 Intake, Oral 270 Impression/Plan Impression/Plan Impression/Plan: Chest x-ray reviewed IMPRESSION: Chronic obstructive lung disease with diffuse bronchiectasis, most prominent in the lower lung zones. Associated airway associated infection/inflammation and mucous plugging is suspected. Findings are similar to the prior exam with no evolving dense consolidation seen. Physical Exam General Appearance: Alert, Oriented X3, Cooperative, Mild Distress Other Physical Findings: Skin rash on feet, chronic HEENT Atraumatic, PERRLA, EOMI Neck Supple, No JVD Cardiovascular tachycardic Lungs diffusely decreased breath sound, with diffuse rhonchi and crackles heard bilaterally Abdomen Normal Bowel Sounds, Soft, No Tenderness Neurological Normal Speech Extremities No Edema IMPRESSION This is a lady with very advanced end-stage lung disease with COPD and bilateral bronchiectasis with chronic Pseudomonas colonization, on maximum medical therapy now comes in with * REsolving Acute hypoxemic and hypercarbic respiratory failure due to worsening Pseudomonas infection. Pt has been on po cipro for one week prior to this admission and did not respond * Severe lung disease with end-stage COPD and bilateral severe bronchiectasis related to previous infections with Pseudomonas colonization with recurrent infection now with acute infection suggestive of Pseudomonas infection not responding to by mouth Cipro as out pt. 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 PLease note pt has been on cipro on and off uptil recently for her treatment and clearly Failed RECOMMENDATION * Continue antibiotics, IV meropenam for one week minimum and will switch to po cipro to finish a total abx of 14 days. IF stable pt can have a mid line and return to snf with iv abx over the next few days * Discussed with patient in detail today. She wishes to continue present intravenous antibiotic therapy as she is improving. Subsequently she wishes to return back to the rehabilitation facility * Prednisone tapered to 5 mg in the next few days * Prior to discharge will resume her outpatient azithromycin for prevention of Pseudomonas infections * Chlorhexidine mouthwash * Aggressive bowel regimen * Increase her calorie intake if pt able * Chest pt bid daily. No need for Mucomyst * Potassium 40 meq daily to keep potassium more than 4 * Diamox 250 po if hco3 more than 40 if potassium is more than 4 * Hold her Daliresp, and vit c * Continue bowel regimen Discussed overall goals of care with the patient today. She wishes to continue present therapy. She is not ready for palliative care hospice yet. Discussed with the sister previously. Patient wishes to be DNR/DNI does not want to go to intensive care does not wish any other life-support she would like to continue her current therapy for now.
[2016-10-29 16:38] VITALS: BP 119/53
[2016-10-29 23:59] VITALS: BP 110/46
[2016-10-30 07:31] VITALS: BP 108/52
--- NOTE | 2016-10-30 07:57 | PN- Housestaff ---
JOSHUA RICARDO MD 10/30/16 0757: Subjective Follow-up For: COPD exacerbation Pseudomonas PNA Subjective: Patient seen and examined at bedside this AM. She reports she feels slightly better though is still producing a lot of mucous. She continues to feel weak, though she appears slightly improved from yesterday. She enjoyed the magic cup for nutrition supplementation. Review of Systems Constitutional: Reports: malaise. Denies: chills, fever. EENTM: Denies: blurred vision, visual changes, hearing changes. Cardiovascular: Denies: chest pain, palpitations. Respiratory: Reports: cough, short of breath, sputum production. Gastrointestinal: Denies: abdominal pain. Genitourinary: Denies: dysuria. Musculoskeletal: Denies: back pain. Skin: Reports: erythema (Bilateral feet). Neurological/Psychological: Denies: headache. Objective Last 24 Hrs of Vital Signs/I&O Vital Signs Date Time Temp Pulse Resp B/P Pulse O2 O2 Flow FiO2 Ox Delivery Rate 10/30 0837 94 Nasal 3.5L Cannula 10/30 0731 98.0 78 20 108/52 96 Nasal 3.5L Cannula 10/30 0000 Nasal 3.5L Cannula 10/29 2359 97.0 84 20 110/46 100 10/29 2130 Nasal 3.5L Cannula 10/29 1647 93 Nasal 4.0L Cannula 10/29 1638 99.4 93 17 119/53 97 Nasal 4.0L Cannula 10/29 1600 95 Nasal 3.5L Cannula Intake & Output 10/30 1600 10/30 0800 10/30 0000 Intake Total 240 240 Output Total Balance 240 240 Intake, Oral 240 240 Number 1 1 Bowel Movements Physical Exam General Appearance: Alert, Oriented X3, Cooperative, Mild Distress Other Physical Findings: Skin: No Breakdown, Bilateral erythema of soles of feet. HEENT: Atraumatic, Mucous Membr. moist/pink Neck: Supple, No JVD Lymphatic: Cervical nl Cardiovascular: Regular Rate, Normal S1, Normal S2 Lungs: Bilateral decreased breath sounds, rhonchi appreciated Abdomen: Normal Bowel Sounds, Soft, No Tenderness, No Hepatospenomegaly, No Masses Neurological: Normal Speech, Normal Tone Extremities: No Clubbing, No Cyanosis, No Edema Vascular: Pulses Symmetrical Current Medications: Current Medications Sig/Jabier Start time Last Medication Dose Route Stop Time Status Admin Acetaminophen 650 MG .STK-MED ONE 10/29 1949 DC PO 10/29 1950 Acetaminophen 650 MG Q6P PRN 10/23 0700 AC 10/30 PO 0857 Albuterol Sulfate 3 ML EVERY 4 HRS/AWAKE 10/23 0800 AC 10/30 INH 0829 Benzonatate 100 MG BID PRN 10/23 2030 AC 10/29 PO 1209 Chlorhexidine 15 ML BID 10/23 1000 AC 10/30 Gluconate PO 0854 Diltiazem HCl 180 MG DAILY 10/23 0645 AC 10/30 PO 0854 Diphenhydramine HCl 12.5 MG ONCE ONE 10/29 1999 DC PO 10/29 2000 Enoxaparin Sodium 40 MG DAILY 10/23 1000 AC 10/30 SC 0855 Guaifenesin 600 MG BID 10/23 1000 AC 10/30 PO 0854 Lorazepam 0.5 MG Q6P PRN 10/23 0700 DC PO 10/30 0659 Melatonin 3 MG AT BEDTIME 10/23 2200 AC 10/29 PO 2134 Meropenem 1 GM Q12 10/28 2200 AC 10/30 IV 0854 Non-Formulary 0 SEE ADMIN CRITERIA 10/30 1015 UNVr Medication ANY Patient Medication 1 ED .STK-MED ONE 10/29 1333 DC Teaching ED 10/29 1334 Polyethylene Glycol 17 GM DAILY 10/23 1000 AC 10/30 PO 0854 Potassium Chloride 40 MEQ ONCE ONE 10/29 1130 DC 10/29 PO 10/29 1131 1216 Prednisone 10 MG DAILY 11/01 1000 UNVr PO Prednisone 20 MG DAILY 10/30 1000 AC 10/30 PO 0854 Prednisone 30 MG DAILY 10/28 1000 DC 10/29 PO 10/30 0000 0914 Senna/Docusate Sodium 1 TAB BID PRN 10/23 0645 AC 10/27 PO 2220 Tiotropium [place] 1 PUF DAILY 10/23 1000 AC 10/30 INH 0855 Last 24 Hrs of Lab/Seth Results Last 24 Hrs of Labs/Mics: Laboratory Tests 10/30/16 0641: Anion Gap 3 L, Estimated GFR > 60, BUN/Creatinine Ratio 30.0 H Microbiology 10/29 1420 STOOL: Clostridium difficile Toxin A & B - RECD Orders Radiology Findings: EXAMINATION: XR PORTABLE CHEST CLINICAL INFORMATION: Dyspnea. COMPARISON: Chest x-ray dated 10/23/2016, 10/10/2015. CT scan of the chest dated 12/28/2014. TECHNIQUE: AP semierect portable view of the chest was obtained. FINDINGS: The cardiac mediastinal silhouette is within normal limits in size. Lungs bilaterally are hyperinflated and again demonstrate diffuse tubular bronchiectasis in the lower lungs and to a lesser extent in the upper and mid lung bilaterally. There is diffuse thickening of the central airways. Hazy peribronchial opacities are seen in the lower lobes bilaterally, left greater than right, likely representing airway associated infection/inflammation and mucous plugging. Findings are similar to the recent prior exam. No evolving consolidation is seen. No pneumothorax is present. No pulmonary edema is seen. Diffuse osteopenia is noted. IMPRESSION: Chronic obstructive lung disease with diffuse bronchiectasis, most prominent in the lower lung zones. Associated airway associated infection/inflammation and mucous plugging is suspected. Findings are similar to the prior exam with no evolving dense consolidation seen. Assessment/Plan Assessment: Ms. Toledo is a pleasant 76-year-old female with PMH of severe bilateral bronchiectasis on preventative azithromycin and high frequency chest wall oscillation, recurrent pseudomonas pneumonia, chronic interstitial lung disease, 4 mm left upper lobe nodule, advanced COPD on home oxygen 2-3 L, HTN and SVT who was sent to the ED from [place] for sudden onset of shortness of breath. Patient was given 1 X azithro, ceftriaxone, and ceftazidime with 125mg IV Solumedrol in the ED. Patient was admitted to with the following problems being addressed: 1. Acute hypoxic & hypercarbic respiratory failure 2/2 Pseudomonas PNA in the setting of end-stage COPD and bilateral severe bronchiectasis * Hypoxia, leukocytosis, fever, chills noted on presentation. * Pt has hx of pseudomonas PNA. She recently failed outpatient therapy with ciprofloxacin. * Rapid flu negative. * Pulm consult with Dr. Gonzalez placed and appreciated. He suggested continuing patient on meropenem as micro suggests her pseudomonas is resistant to ceftaz and she failed prior treatment with cipro. If patient improves, will possibly place a midline and have her continue meropenem at [facility] OR switch to cipro prior to transfer back to [facility]. * Prednisone 20 mg PO prednisone x 2 days then taper to 10 mg PO daily tuesday for 2 days * Peridex oral solution to continue * Roflumilast discontinued 10/[address] Lisa * TRC nebs as needed, acapella discontinued and chest PT to continue * Continue robitussin AC & mucinex * Follow BC X2 show no growth (final), LRC shows light growth of pseudomonas with sensitivity to meropenem, urine for strep and legionella antigen negative * Add diamox when K>4 and HCO3 >40 2. Hyponatremia * 2/2 SIADH * Na normal today to 137 * Repeat BEP in AM, monitor Na, K, HCO3 3. SVT/HTN * Continue diltiazem CD 180 mg PO daily 4. Continue home meds * Continue senna S, miralax, milk mag prn, lactobacillus, melatonin 3 mg, Vit d2 , Vitamin c 5. Malnutrition and decreased oral intake * Nutrition consult placed and appreciated, will follow up recommendations * Continue to encourse PO intake * Have added magic cup for supplementation, patient enjoyed and we will continue 2 x day 6. Goals of care * Both Dr. Gonzalez and Dr. Haas have discussed goals of care with patient, she would prefer transition to comfort measures if her condition deteriorates in the future DNR/DNI Heart Healthy Diet Mild pain pathways DVTP: Lovenox Problem List: 1. Cough productive of purulent sputum 2. Sepsis 3. DVT prophylaxis 4. Tachycardia 5. COPD (chronic obstructive pulmonary disease) 6. DNR (do not resuscitate) 7. DNI (do not intubate) 8. Hyponatremia 9. Rash 10. Bronchiectasis Pain Ratin Pain Location: n/a Pain Goal: Remain pain free Pain Plan: Mild pain pathways Tomorrow's Labs & Rationales: BEP (monitor K and HCo3 for possbile diamox need) DEBBIE ABDI,[place] 10/30/16 0944: Attending MD Review Statement Attending Statement Attending MD Statement: examined this patient, discuss w/resident/PA/MRI CT TECH, agreed w/resident/PA/MRI CT TECH, reviewed EMR data (avail), discussed with nursing, amended to note Attending Assessment/Plan: Patient seen and examined. She actually looks better today. She continues to complain of a productive cough but appeared less concern today. She reports that her appetite is very good and was requesting more of the "Magic cup" which she had yesterday. On examination she has slightly improved entry today with less rhonchorous breath sounds. On her feet she has bilateral erythema on the plantar surface. Patient reports that this is chronic for several years. She reports that she utilizes cortisone cream when she gets pruritus occasionally. She is currently reports some pruritus. Recommendations -Continue bronchodilator therapy and slow taper off prednisone -Continue antibiotic therapy as directed by her blast setter/PCP Rishi Gonzalez MD. -Apply cortisone cream topically daily for the next 3 days and then reevaluate. -Overall prognosis remains poor given her advanced COPD and underlying bronchiectasis.
--- NOTE | 2016-10-30 14:24 | PN- Pulmonary ---
Subjective HPI/Critical Care Issues: The patient is awake and alert. She continues to have a cough productive of white to yellow sputum. She has no hemoptysis. She continues to have generalized weakness. Objective Current Medications: Current Medications Sig/Jabier Start time Last Medication Dose Route Stop Time Status Admin Acetaminophen 650 MG .STK-MED ONE 10/29 194 DC PO 10/29 1950 Acetaminophen 650 MG Q6P PRN 10/23 0700 AC 10/30 PO 0857 Albuterol Sulfate 3 ML EVERY 4 HRS/AWAKE 10/23 0800 AC 10/30 INH 1313 Benzonatate 100 MG BID PRN 10/23 2030 AC 10/29 PO 1209 Chlorhexidine 15 ML BID 10/23 1000 AC 10/30 Gluconate PO 0854 Diltiazem HCl 180 MG DAILY 10/23 0645 AC 10/30 PO 0854 Diphenhydramine HCl 12.5 MG ONCE ONE 10/29 1999 DC PO 10/29 2000 Enoxaparin Sodium 40 MG DAILY 10/23 1000 AC 10/30 SC 0855 Guaifenesin 600 MG BID 10/23 1000 AC 10/30 PO 0854 Hydrocortisone 1 LACEY DAILY 10/30 1015 AC 10/30 EXT 11/01 1001 1221 Lorazepam 0.5 MG Q6P PRN 10/23 0700 DC PO 10/30 0659 Melatonin 3 MG AT BEDTIME 10/23 2200 AC 10/29 PO 2134 Meropenem 1 GM Q12 10/28 2200 AC 10/30 IV 0854 Polyethylene Glycol 17 GM DAILY 10/23 1000 AC 10/30 PO 0854 Prednisone 10 MG DAILY 11/01 1000 AC PO Prednisone 20 MG DAILY 10/30 1000 AC 10/30 PO 10/31 1001 0854 Prednisone 30 MG DAILY 10/28 1000 DC 10/29 PO 10/30 0000 0914 Senna/Docusate Sodium 1 TAB BID PRN 10/23 0645 AC 10/27 PO 2220 Tiotropium [place] 1 PUF DAILY 10/23 1000 AC 10/30 INH 0855 Vital Signs & I&O Last 24 Hrs of Vitals and I&O: Vital Signs Date Time Temp Pulse Resp B/P Pulse O2 O2 Flow FiO2 Ox Delivery Rate 10/30 0837 94 Nasal 3.5L Cannula 10/30 0800 96 Nasal 3.5L Cannula 10/30 0731 98.0 78 20 108/52 96 Nasal 3.5L Cannula 10/30 0000 Nasal 3.5L Cannula 10/29 2359 97.0 84 20 110/46 100 10/29 2130 Nasal 3.5L Cannula 10/29 1647 93 Nasal 4.0L Cannula 10/29 1638 99.4 93 17 119/53 97 Nasal 4.0L Cannula 10/29 1600 95 Nasal 3.5L Cannula Intake & Output 10/30 1600 10/30 0800 10/30 0000 Intake Total 240 240 Output Total Balance 240 240 Intake, Oral 240 240 Number 1 1 Bowel Movements Physical Exam General Appearance: Alert, Oriented X3 HEENT: Atraumatic, Mucous Membranes moist/pink Neck: Supple, No JVD Cardiovascular: Regular Rate, Normal S1, Normal S2 Lungs: Bilateral decreased breath sounds, rhonchi appreciated Abdomen: Normal Bowel Sounds, Soft, No Tenderness, No Hepatospenomegaly Neurological: Normal Speech, Normal Tone Extremities: No Clubbing, No Cyanosis, No Edema Results Last 24 Hrs of Lab Results: Laboratory Tests 10/30/16 0641: Anion Gap 3 L, Estimated GFR > 60, BUN/Creatinine Ratio 30.0 H Impression/Plan Impression/Plan Impression/Plan: 1. Advanced end-stage lung disease secondary to COPD and bilateral bronchiectasis with chronic pseudomonas colonization. 2. Resolving hypoxemic and hypercarbic respiratory failure. 3. 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 4. Outpatient antibiotic (Cipro) failure. Recommendations: * Complete 14 days of antibiotics. * Continue with prednisone taper. * Bowel regimen for constipation. * Increase oral intake. * Continue nebs/TRC. * Continue with twice a day chest PT. * Continue all supportive care. * The patient is DNR/DNI and does not want to go to the ICU for any other life supportive measures.
[2016-10-30 15:51] VITALS: BP 112/48
[2016-10-30 23:40] VITALS: BP 111/58
[2016-10-31 07:46] VITALS: BP 110/50
--- NOTE | 2016-10-31 08:05 | PN- Housestaff ---
See Addendum Subjective Follow-up For: COPD exacerbation Pseudomonas PNA Malnutrition with failure to thrive Subjective: Patient seen and examined at bedside this AM. She reports her appetite is a little bit better and she is less lethargic than yesterday. She does reports that she didn't sleep well however. Her respiratory status shows noted improvement as per her. Review of Systems Constitutional: Denies: chills, fever, malaise. EENTM: Denies: blurred vision, visual changes, hearing changes, nasal congestion, throat pain. Cardiovascular: Denies: chest pain, palpitations. Respiratory: Reports: cough, short of breath, sputum production. Gastrointestinal: Denies: abdominal pain, bloating, constipation, diarrhea, nausea. Genitourinary: Denies: dysuria, frequency, hematuria. Musculoskeletal: Reports: back pain (Slight). Skin: Denies: change in skin color, change in hair/nails. Neurological/Psychological: Denies: headache. Hematologic/Endocrine: Denies: bruising, bleeding. Immunologic/Allergic: Denies: splenectomy. Objective Last 24 Hrs of Vital Signs/I&O Vital Signs Date Time Temp Pulse Resp B/P Pulse O2 O2 Flow FiO2 Ox Delivery Rate 10/31 0746 97.6 80 20 110/50 96 Nasal 2.5L Cannula 10/31 0000 Nasal 2.5L Cannula 10/30 2340 97.8 80 20 111/58 98 Nasal 3.5L Cannula 10/30 1645 95 Nasal 3.5L Cannula 10/30 1600 94 Nasal 3.5L Cannula 10/30 1551 99.0 85 20 112/48 97 Nasal 3.5L Cannula 10/30 0837 94 Nasal 3.5L Cannula Intake & Output 10/31 1600 10/31 0800 10/31 0000 Intake Total 480 480 Output Total 200 Balance 480 280 Intake, Oral 480 480 Number 1 Bowel Movements Output, Urine 200 Physical Exam General Appearance: Alert, Oriented X3, Cooperative, No Acute Distress Skin: No Significant Lesion, Bilateral erythema on soles of feet, chronic HEENT: Atraumatic, PERRLA, Mucous Membr. moist/pink Neck: Supple, No JVD Lymphatic: Cervical nl Cardiovascular: Regular Rate, Normal S1, Normal S2 Lungs: Improving air entry bilaterally with occasional wheeze/rhonchi Abdomen: Normal Bowel Sounds, Soft, No Tenderness, No Hepatospenomegaly, No Masses Neurological: Normal Speech, Normal Tone Extremities: No Clubbing, No Cyanosis, No Edema Vascular: Pulses Symmetrical Current Medications: Current Medications Sig/Jabier Start time Last Medication Dose Route Stop Time Status Admin Acetaminophen 650 MG .STK-MED ONE 10/30 2122 DC PO 10/30 212 Acetaminophen 650 MG .STK-MED ONE 10/30 0854 DC PO 10/30 0855 Acetaminophen 650 MG Q6P PRN 10/23 0700 AC 10/30 PO 2129 Albuterol Sulfate 3 ML EVERY 4 HRS/AWAKE 10/23 0800 AC 10/31 INH 0124 Benzonatate 100 MG BID PRN 10/23 2030 AC 10/29 PO 1209 Chlorhexidine 15 ML BID 10/23 1000 AC 10/30 Gluconate PO 2129 Diltiazem HCl 180 MG DAILY 10/23 0645 AC 10/30 PO 0854 Enoxaparin Sodium 40 MG DAILY 10/23 1000 AC 10/30 SC 0855 Guaifenesin 600 MG BID 10/23 1000 AC 10/30 PO 2129 Hydrocortisone 1 LACEY DAILY 10/30 1015 AC 10/30 EXT 11/01 1001 1221 Melatonin 3 MG AT BEDTIME 10/23 2200 AC 10/30 PO 2129 Meropenem 1 GM Q12 10/28 2200 AC 10/30 IV 2129 Polyethylene Glycol 17 GM DAILY 10/23 1000 AC 10/30 PO 0854 Prednisone 10 MG DAILY 11/01 1000 AC PO Prednisone 20 MG DAILY 10/30 1000 AC 10/30 PO 10/31 1001 0854 Senna/Docusate Sodium 1 TAB BID PRN 10/23 0645 AC 10/27 PO 2220 Tiotropium [place] 1 PUF DAILY 10/23 1000 AC 10/30 INH 0855 Last 24 Hrs of Lab/Seth Results Last 24 Hrs of Labs/Mics: Laboratory Tests 10/31/16 0650: Sodium Pending, Potassium Pending, Chloride Pending, Carbon Dioxide Pending, Anion Gap Pending, BUN Pending, Creatinine Pending, BUN/Creatinine Ratio Pending Orders Radiology Findings: EXAMINATION: XR PORTABLE CHEST CLINICAL INFORMATION: Dyspnea. COMPARISON: Chest x-ray dated 10/23/2016, 10/10/2015. CT scan of the chest dated 12/28/2014. TECHNIQUE: AP semierect portable view of the chest was obtained. FINDINGS: The cardiac mediastinal silhouette is within normal limits in size. Lungs bilaterally are hyperinflated and again demonstrate diffuse tubular bronchiectasis in the lower lungs and to a lesser extent in the upper and mid lung bilaterally. There is diffuse thickening of the central airways. Hazy peribronchial opacities are seen in the lower lobes bilaterally, left greater than right, likely representing airway associated infection/inflammation and mucous plugging. Findings are similar to the recent prior exam. No evolving consolidation is seen. No pneumothorax is present. No pulmonary edema is seen. Diffuse osteopenia is noted. IMPRESSION: Chronic obstructive lung disease with diffuse bronchiectasis, most prominent in the lower lung zones. Associated airway associated infection/inflammation and mucous plugging is suspected. Findings are similar to the prior exam with no evolving dense consolidation seen. Assessment/Plan Assessment: Ms. Toledo is a pleasant 76-year-old female with PMH of severe bilateral bronchiectasis on preventative azithromycin and high frequency chest wall oscillation, recurrent pseudomonas pneumonia, chronic interstitial lung disease, 4 mm left upper lobe nodule, advanced COPD on home oxygen 2-3 L, HTN and SVT who was sent to the ED from [place] for sudden onset of shortness of breath. Patient was given 1 X azithro, ceftriaxone, and ceftazidime with 125mg IV Solumedrol in the ED. Patient was admitted to with the following problems being addressed: 1. Acute hypoxic & hypercarbic respiratory failure 2/2 Pseudomonas PNA in the setting of end-stage COPD and bilateral severe bronchiectasis * Hypoxia, leukocytosis, fever, chills noted on presentation. * Pt has hx of pseudomonas PNA. She recently failed outpatient therapy with ciprofloxacin. * Rapid flu negative. * Pulm consult with Dr. Gonzalez placed and appreciated. He suggested continuing patient on meropenem as micro suggests her pseudomonas is resistant to ceftaz and she failed prior treatment with cipro. As patient is improving, will discuss with Dr. Gonzalez about switching her to PO cipro tomorrow and consider discharge back to [place]. * Prednisone 20 mg PO prednisone x 1 more day then taper to 10 mg PO daily. * Peridex oral solution to continue * Roflumilast discontinued 10/[address] Gonzalez * TRC nebs as needed, acapella discontinued and chest PT to continue * Continue robitussin AC & mucinex * Follow BC X2 show no growth (final), LRC shows light growth of pseudomonas with sensitivity to meropenem, urine for strep and legionella antigen negative * Add diamox when K>4 and HCO3 >40 2. Hyponatremia * 2/2 SIADH * Na today pending, f/u results * Repeat BEP in AM, monitor Na, K, HCO3 for possible diamox use 3. SVT/HTN * Continue diltiazem CD 180 mg PO daily 4. Continue home meds * Continue senna S, miralax, milk mag prn, lactobacillus, melatonin 3 mg, Vit d2 , Vitamin c 5. Malnutrition and decreased oral intake * Nutrition consult placed and appreciated, will continue to follow recommendations * Continue to encourse PO intake * Have added magic cup for supplementation, patient enjoyed and we will continue 2 x day 6. Goals of care * Both Dr. Gonzalez and Dr. Haas have discussed goals of care with patient, she would prefer transition to comfort measures if her condition deteriorates in the future DNR/DNI Heart Healthy Diet Mild pain pathways DVTP: Lovenox Problem List: 1. Cough productive of purulent sputum 2. Sepsis 3. COPD exacerbation 4. Acute respiratory distress 5. DNI (do not intubate) 6. DNR (do not resuscitate) 7. Tachycardia 8. SOB (shortness of breath) 9. Bronchiectasis 10. Hyponatremia 11. Rash 12. Pneumonia Pain Ratin Pain Location: Low back pain, chronic Pain Goal: Remain pain free Pain Plan: Mild pathway. Tomorrow's Labs & Rationales: BEP (monitor K and HCO3 for potention diamox use)
--- NOTE | 2016-10-31 10:46 | PN- Pulmonary ---
Subjective HPI/Critical Care Issues: The patient is awake and alert. She continues to feel unwell. She has an ongoing cough with shortness of breath. She continues to feel weak. She has multiple sores over her lips which are uncomfortable. Objective Current Medications: Current Medications Sig/Jabier Start time Last Medication Dose Route Stop Time Status Admin Acetaminophen 650 MG .STK-MED ONE 10/30 2122 DC PO 10/30 2123 Acetaminophen 650 MG Q6P PRN 10/23 0700 AC 10/30 PO 212 Albuterol Sulfate 3 ML EVERY 4 HRS/AWAKE 10/23 0800 AC 10/31 INH 0822 Benzonatate 100 MG BID PRN 10/23 2030 AC 10/29 PO 1209 Chlorhexidine 15 ML BID 10/23 1000 AC 10/31 Gluconate PO 0938 Diltiazem HCl 180 MG DAILY 10/23 0645 AC 10/31 PO 0937 Enoxaparin Sodium 40 MG DAILY 10/23 1000 AC 10/31 SC 0938 Guaifenesin 600 MG BID 10/23 1000 AC 10/31 PO 0937 Hydrocortisone 1 LACEY DAILY 10/30 1015 AC 10/31 EXT 11/01 1001 0938 Melatonin 3 MG AT BEDTIME 10/23 2200 AC 10/30 PO 2129 Meropenem 1 GM Q12 10/28 2200 AC 10/31 IV 0938 Polyethylene Glycol 17 GM DAILY 10/23 1000 AC 10/30 PO 0854 Prednisone 10 MG DAILY 11/01 1000 AC PO Prednisone 20 MG DAILY 10/30 1000 DC 10/31 PO 10/31 1001 0937 Senna/Docusate Sodium 1 TAB BID PRN 10/23 0645 AC 10/27 PO 2220 Tiotropium [place] 1 PUF DAILY 10/23 1000 AC 10/30 INH 0855 Vital Signs & I&O Last 24 Hrs of Vitals and I&O: Vital Signs Date Time Temp Pulse Resp B/P Pulse O2 O2 Flow FiO2 Ox Delivery Rate 10/31 0831 95 Nasal 2.5L Cannula 10/31 0746 97.6 80 20 110/50 96 Nasal 2.5L Cannula 10/31 0000 Nasal 2.5L Cannula 10/30 2340 97.8 80 20 111/58 98 Nasal 3.5L Cannula 10/30 1645 95 Nasal 3.5L Cannula 10/30 1600 94 Nasal 3.5L Cannula 01/28 1551 99.0 85 20 112/48 97 Nasal 3.5L Cannula Intake & Output 10/31 1600 10/31 0800 10/31 0000 Intake Total 480 480 Output Total 200 Balance 480 280 Intake, Oral 480 480 Number 1 Bowel Movements Output, Urine 200 Physical Exam General Appearance: Alert, Oriented X3 HEENT: Atraumatic, Mucous Membranes moist/pink Neck: Supple, No JVD Cardiovascular: Regular Rate, Normal S1, Normal S2 Lungs: Bilateral decreased breath sounds, rhonchi appreciated Abdomen: Normal Bowel Sounds, Soft, No Tenderness, No Hepatospenomegaly Neurological: Normal Speech, Normal Tone Extremities: No Clubbing, No Cyanosis, No Edema Results Last 24 Hrs of Lab Results: Laboratory Tests 10/31/16 0650: Anion Gap 1 L, Estimated GFR > 60, BUN/Creatinine Ratio 26.0 H Impression/Plan Impression/Plan Impression/Plan: 1. Advanced end-stage lung disease secondary to COPD and bilateral bronchiectasis with chronic pseudomonas colonization. 2. Resolving hypoxemic and hypercarbic respiratory failure. 3. 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 4. Outpatient antibiotic (Cipro) failure. Recommendations: * Complete 14 days of antibiotics. * Continue with prednisone taper. * Bowel regimen for constipation. * Increase oral intake. * Continue nebs/TRC. * Continue with twice a day chest PT. * Continue all supportive care. * The patient is DNR/DNI and does not want to go to the ICU for any other life supportive measures.
--- NOTE | 2016-10-31 11:23 | NUR ---
DR RICARDO NOTIFIED OF PATIENT'S CONCERN REGARDING HER DRY LIPS; LIPS APPEAR TO BE DRY AND CRACKED; PER DR RICARDO PROVIDE PATIENT WITH LIP MOISTURIZER; LIP MOISTURIZER GIEN TO PATIENT; WILL CONTINUE TO MONITOR PATIENT;
[2016-10-31 15:59] VITALS: BP 123/57
[2016-10-31 23:35] VITALS: BP 127/63
--- NOTE | 2016-11-01 06:58 | PN- Housestaff ---
See Addendum Subjective Follow-up For: COPD exacerbation Pseudomonas PNA Subjective: Patient seen and examined at bedside this AM. She reports she feels less lethargic and is now hungry and happy to eat. She is enjoying the magic cup. She is requesting discharge to [facility]CF as she feels well enough to do so. Review of Systems Constitutional: Denies: chills, fever, malaise, weakness. EENTM: Denies: blurred vision, visual changes, hearing changes, nasal congestion. Cardiovascular: Denies: chest pain, palpitations, peripheral edema. Respiratory: Reports: cough (Improving), short of breath (At baseline). Gastrointestinal: Denies: abdominal pain, bloating, constipation, diarrhea. Genitourinary: Denies: dysuria. Musculoskeletal: Denies: back pain. Skin: Reports: erythema (Soles of feet, improving). Neurological/Psychological: Denies: confusion, dementia, headache, numbness. Hematologic/Endocrine: Denies: bruising, bleeding. Immunologic/Allergic: Denies: splenectomy. Objective Last 24 Hrs of Vital Signs/I&O Vital Signs Date Time Temp Pulse Resp B/P Pulse O2 O2 Flow FiO2 Ox Delivery Rate 11/01 0801 98.0 80 20 110/52 95 Nasal 2.5L Cannula 11/01 0000 95 Nasal 2.5L Cannula 10/31 2335 97.8 77 20 127/63 98 Nasal 2.5L Cannula 10/31 1620 95 Nasal 2.5L Cannula 10/31 1600 96 Nasal 2.5L Cannula 10/31 1559 98.9 88 20 123/57 97 Nasal 3.5L Cannula 10/31 0831 95 Nasal 2.5L Cannula Intake & Output 11/01 1600 11/01 0800 11/01 0000 Intake Total 480 480 Output Total 200 Balance 480 280 Intake, Oral 480 480 Number 1 Bowel Movements Output, Urine 200 Physical Exam General Appearance: Alert, Oriented X3, Cooperative Skin: No Significant Lesion, Bilateral erythema of soles of feet, interval improvement from yesterday. HEENT: Atraumatic, PERRLA, EOMI, Mucous Membr. moist/pink Neck: Supple, No JVD Lymphatic: Cervical nl Cardiovascular: Regular Rate, Normal S1, Normal S2 Lungs: Improving air entry bilaterally, occasional rhonchi, no wheezing appreciated. Abdomen: Normal Bowel Sounds, Soft, No Tenderness, No Hepatospenomegaly, No Masses Neurological: Normal Speech, Normal Tone Extremities: No Clubbing, No Cyanosis, No Edema Vascular: Pulses Symmetrical Current Medications: Current Medications Sig/Jabier Start time Last Medication Dose Route Stop Time Status Admin Acetaminophen 650 MG Q6P PRN 10/23 0700 AC 10/30 PO 2129 Albuterol Sulfate 3 ML EVERY 4 HRS/AWAKE 10/23 0800 AC 11/01 INH 0250 Benzonatate 100 MG BID PRN 10/23 2030 AC 10/29 PO 1209 Chlorhexidine 15 ML BID 10/23 1000 AC 10/31 Gluconate PO 2116 Diltiazem HCl 180 MG DAILY 10/23 0645 AC 10/31 PO 0937 Enoxaparin Sodium 40 MG DAILY 10/23 1000 AC 10/31 SC 0938 Guaifenesin 600 MG BID 10/23 1000 AC 10/31 PO 2116 Hydrocortisone 1 LACEY DAILY 10/30 1015 AC 10/31 EXT 11/01 1001 0938 Melatonin 3 MG AT BEDTIME 10/23 2200 AC 10/31 PO 2116 Meropenem 1 GM Q12 10/28 2200 AC 10/31 IV 2116 Polyethylene Glycol 17 GM DAILY 10/23 1000 AC 10/30 PO 0854 Prednisone 10 MG DAILY 11/01 1000 AC PO Prednisone 20 MG DAILY 10/30 1000 DC 10/31 PO 10/31 1001 0937 Senna/Docusate Sodium 1 TAB BID PRN 10/23 0645 AC 10/27 PO 2220 Tiotropium [place] 1 PUF DAILY 10/23 1000 AC 10/31 INH 1131 Last 24 Hrs of Lab/Seth Results Last 24 Hrs of Labs/Mics: Laboratory Tests 11/01/16 0710: Sodium Pending, Potassium Pending, Chloride Pending, Carbon Dioxide Pending, Anion Gap Pending, BUN Pending, Creatinine Pending, BUN/Creatinine Ratio Pending , CBC w Diff Pending, WBC Pending, RBC Pending, Hgb Pending, Hct Pending, MCV Pending, MCH Pending, RDW Pending, Plt Count Pending, MPV Pending, PUBS MCHC Pending Orders Radiology Findings: XR PORTABLE CHEST CLINICAL INFORMATION: Dyspnea. COMPARISON: Chest x-ray dated 10/23/2016, 10/10/2015. CT scan of the chest dated 12/28/2014. TECHNIQUE: AP semierect portable view of the chest was obtained. FINDINGS: The cardiac mediastinal silhouette is within normal limits in size. Lungs bilaterally are hyperinflated and again demonstrate diffuse tubular bronchiectasis in the lower lungs and to a lesser extent in the upper and mid lung bilaterally. There is diffuse thickening of the central airways. Hazy peribronchial opacities are seen in the lower lobes bilaterally, left greater than right, likely representing airway associated infection/inflammation and mucous plugging. Findings are similar to the recent prior exam. No evolving consolidation is seen. No pneumothorax is present. No pulmonary edema is seen. Diffuse osteopenia is noted. IMPRESSION: Chronic obstructive lung disease with diffuse bronchiectasis, most prominent in the lower lung zones. Associated airway associated infection/inflammation and mucous plugging is suspected. Findings are similar to the prior exam with no evolving dense consolidation seen. Assessment/Plan Assessment: Ms. Toledo is a pleasant 76-year-old female with PMH of severe bilateral bronchiectasis on preventative azithromycin and high frequency chest wall oscillation, recurrent pseudomonas pneumonia, chronic interstitial lung disease, 4 mm left upper lobe nodule, advanced COPD on home oxygen 2-3 L, HTN and SVT who was sent to the ED from [place] for sudden onset of shortness of breath. Patient was given 1 X azithromycin, ceftriaxone, and ceftazidime with 125mg IV Solumedrol in the ED. Patient was admitted to with the following problems being addressed: 1. Acute hypoxic & hypercarbic respiratory failure 2/2 Pseudomonas PNA in the setting of end-stage COPD and bilateral severe bronchiectasis * Hypoxia, leukocytosis, fever, chills noted on presentation. * Pt has hx of pseudomonas PNA. She recently failed outpatient therapy with ciprofloxacin. * Rapid flu negative. * Pulm consult with Dr. Gonzalez placed and appreciated. Will discuss with Dr. Gonzalez about switching her to PO cipro today and considering discharge back to [place]. * Prednisone tapered to 10 mg PO daily, she will complete taper tomorrow . * Peridex oral solution to continue * Roflumilast discontinued 10/[address] Gonzalez * TRC nebs as needed, acapella discontinued and chest PT to continue * Continue robitussin AC & mucinex * Follow BC X2 show no growth (final), LRC shows light growth of pseudomonas with sensitivity to meropenem, urine for strep and legionella antigen negative * Add diamox when K>4 and HCO3 >40 2. Hyponatremia * 2/2 SIADH * Na today pending, f/u results * Repeat BEP in AM, monitor Na, K, HCO3 for possible diamox use 3. SVT/HTN * Continue diltiazem CD 180 mg PO daily 4. Continue home meds * Continue senna S, miralax, milk mag prn, lactobacillus, melatonin 3 mg, Vit d2 , Vitamin c 5. Malnutrition and decreased oral intake * Nutrition consult placed and appreciated, will continue to follow recommendations * Continue to encourse PO intake * Have added magic cup for supplementation, patient enjoyed and we will continue 2 x day, will highly recommend that this is given to patient at [place] as she has noted malnutrition 6. Goals of care * Both Dr. Gonzalez and Dr. Haas have discussed goals of care with patient, she would prefer transition to comfort measures if her condition deteriorates in the future DNR/DNI Heart Healthy Diet Mild pain pathways DVTP: Lovenox Problem List: 1. Sepsis 2. Cough productive of purulent sputum 3. Arthritis 4. COPD exacerbation 5. Acute respiratory distress 6. DNI (do not intubate) 7. DNR (do not resuscitate) 8. Tachycardia 9. Bronchiectasis 10. Hyponatremia 11. Rash Pain Ratin Pain Location: n/a Pain Goal: Pain 4 or less Pain Plan: Mild pain pathway Tomorrow's Labs & Rationales: BEP (monitor HCO3 and K in setting of potential diamox usage)
[2016-11-01] MEDS ORDERED: PREDNISONE10 M2 PO (07:27)
[2016-11-01] MEDS ORDERED: CIPROFLOXACIN750 M1 PO (07:35)
[2016-11-01 08:01] VITALS: BP 110/52
[2016-11-01 09:15] LABS: ABSOLUTE BASOPHIL COUNT 0 /CUMM (0.0-0.2); ABSOLUTE EOSINOPHIL COUNT 0 /CUMM (0.0-0.7); ABSOLUTE GRANULOCYTE CT 5.3 /CUMM (1.4-6.5); ABSOLUTE LYMPH COUNT 1.3 /CUMM (1.2-3.4); ABSOLUTE MONOCYTE COUNT 0.7 /CUMM (0.10-0.60); BASOPHIL % 0.2 % (0.0-2.0); EOSINOPHIL % 0.1 % (0-5); GRANULOCYTE % 72.3 % (42.2-75.2); HEMATOCRIT 32.9 % (37-47); MEAN CORPUSCULAR HGB 28.5 PG (27.0-31.0); MEAN CORPUSCULAR HGB CONC 32.6 G/DL (33.0-37.0); MEAN CORPUSCULAR VOLUME 87.4 FL (81.0-99.0); MEAN PLATELET VOLUME 7.8 FL (7.4-10.4); PLATELET COUNT 204 /CUMM (130-400); RBC DISTRIBUTION WIDTH 13.5 % (11.5-14.5); RED BLOOD CELL CT 3.76 /CUMM (4.20-5.40); WHITE BLOOD CELL COUNT 7.4 /CUMM (4.8-10.8)
--- NOTE | 2016-11-01 10:48 | PN- Pulmonary ---
Subjective HPI/Critical Care Issues: Patient seen and examined at bedside this AM. She reports she feels less lethargic and is now hungry and happy to eat. She is enjoying the magic cup. She is requesting discharge to [facility] as she feels well enough to do so. Review of Systems Constitutional: Denies: chills, fever, malaise, weakness. EENTM: Denies: blurred vision, visual changes, hearing changes, nasal congestion. Cardiovascular: Denies: chest pain, palpitations, peripheral edema. Respiratory: Reports: cough (Improving), short of breath (At baseline). Gastrointestinal: Denies: abdominal pain, bloating, constipation, diarrhea. Genitourinary: Denies: dysuria. Musculoskeletal: Denies: back pain. Skin: Reports: erythema (Soles of feet, improving). Neurological/Psychological: Denies: confusion, dementia, headache, numbness. Hematologic/Endocrine: Denies: bruising, bleeding. Immunologic/Allergic: Objective Current Medications: Current Medications Sig/Jabier Start time Last Medication Dose Route Stop Time Status Admin Acetaminophen 650 MG Q6P PRN 10/23 0700 AC 10/30 PO 2129 Albuterol Sulfate 3 ML EVERY 4 HRS/AWAKE 10/23 0800 AC 11/01 INH 0824 Benzonatate 100 MG BID PRN 10/23 2030 AC 11/01 PO 0924 Chlorhexidine 15 ML BID 10/23 1000 AC 11/01 Gluconate PO 0925 Diltiazem HCl 180 MG DAILY 10/23 0645 AC 11/01 PO 0924 Enoxaparin Sodium 40 MG DAILY 10/23 1000 AC 11/01 SC 0923 Guaifenesin 600 MG BID 10/23 1000 AC 11/01 PO 0924 Hydrocortisone 1 LACEY DAILY 10/30 1015 DC 11/01 EXT 11/01 1001 0923 Melatonin 3 MG AT BEDTIME 10/23 2200 AC 10/31 PO 2116 Meropenem 1 GM Q12 10/28 2200 AC 11/01 IV 0924 Polyethylene Glycol 17 GM DAILY 10/23 1000 AC 10/30 PO 0854 Prednisone 10 MG DAILY 11/01 1000 AC 11/01 PO 0924 Senna/Docusate Sodium 1 TAB BID PRN 10/23 0645 AC 10/27 PO 2220 Tiotropium [place] 1 PUF DAILY 10/23 1000 AC 11/01 INH 0924 Tramadol HCl 50 MG ONCE ONE 11/01 1015 DC 11/01 PO 11/01 1016 1029 Vital Signs & I&O Last 24 Hrs of Vitals and I&O: Vital Signs Date Time Temp Pulse Resp B/P Pulse O2 O2 Flow FiO2 Ox Delivery Rate 11/01 0825 96 Nasal 2.0L Cannula 11/01 0801 98.0 80 20 110/52 95 Nasal 2.5L Cannula 11/01 0000 95 Nasal 2.5L Cannula 10/31 2335 97.8 77 20 127/63 98 Nasal 2.5L Cannula 10/31 1620 95 Nasal 2.5L Cannula 10/31 1600 96 Nasal 2.5L Cannula 10/31 1559 98.9 88 20 123/57 97 Nasal 3.5L Cannula Intake & Output 11/01 1600 11/01 0800 11/01 0000 Intake Total 480 480 Output Total 200 Balance 480 280 Intake, Oral 480 480 Number 1 Bowel Movements Output, Urine 200 Impression/Plan Impression/Plan Impression/Plan: Chest x-ray reviewed IMPRESSION: Chronic obstructive lung disease with diffuse bronchiectasis, most prominent in the lower lung zones. Associated airway associated infection/inflammation and mucous plugging is suspected. Findings are similar to the prior exam with no evolving dense consolidation seen. Physical Exam General Appearance: Alert, Oriented X3, Cooperative, Mild Distress Other Physical Findings: Skin rash on feet, chronic HEENT Atraumatic, PERRLA, EOMI Neck Supple, No JVD Cardiovascular tachycardic Lungs diffusely decreased breath sound, with diffuse rhonchi and crackles heard bilaterally Abdomen Normal Bowel Sounds, Soft, No Tenderness Neurological Normal Speech Extremities No Edema IMPRESSION This is a lady with very advanced end-stage lung disease with COPD and bilateral bronchiectasis with chronic Pseudomonas colonization, on maximum medical therapy now comes in with * REsolving Acute hypoxemic and hypercarbic respiratory failure due to worsening Pseudomonas infection. Pt has been on po cipro for one week prior to this admission and did not respond, now better on meropenam * Severe lung disease with end-stage COPD and bilateral severe bronchiectasis related to previous infections with Pseudomonas colonization with recurrent infection now with acute infection suggestive of Pseudomonas infection. 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 PLease note pt has been on cipro on and off uptil recently for her treatment and clearly Failed RECOMMENDATION * Continue antibiotics, IV meropenam today and switch to po cipro 750 bid for one more week to finish a total abx of 14 days. pt can be dcd if she contiues to improve in am * Prednisone tapered to 5 mg in the next three days * Prior to discharge will resume her outpatient azithromycin for prevention of Pseudomonas infections * Chlorhexidine mouthwash * Aggressive bowel regimen * Increase her calorie intake if pt able * Chest pt bid daily. No need for Mucomyst * Potassium 40 meq daily to keep potassium more than 4 * Hold her Daliresp, and vit c and does not need to be restarted upon dc * Continue bowel regime Patient wishes to be DNR/DNI does not want to go to intensive care does not wish any other life-support she would like to continue her current therapy for now.
--- NOTE | 2016-11-01 11:33 | RADIOLOGY REPORT ---
EXAMINATION: XR PORTABLE CHEST CLINICAL INFORMATION: Chest pain with short of breath. COMPARISON: 10/24/2016. TECHNIQUE: Portable AP view of the chest was obtained. FINDINGS: The cardiomediastinal silhouette is within normal limits. The lungs remain moderately hyperexpanded with diffuse increase in interstitial markings and bilateral lower lobe bronchiectasis. Findings appear somewhat less prominent on today's examination more similar to 01/25/2014 exam. This suggests some improving inflammatory process on the background of chronic pulmonary disease. No dense consolidation is identified. There is no evidence of pneumothorax or pulmonary edema. Included osseous structures appear largely unremarkable. IMPRESSION: Slight improvement in bilateral opacities is suggested. No focal infiltrate to suggest pneumonia.
[2016-11-01 15:45] VITALS: BP 120/48
[2016-11-02 00:37] VITALS: BP 124/58
--- NOTE | 2016-11-02 06:54 | PN- Housestaff ---
See Addendum Subjective Follow-up For: COPD exacerbation Pseudomonas PNA Subjective: Patient seen and examined at bedside this AM. She reports she feels better though she remains a little lethargic. Her appetite has improved as has her respiratory status. She denies fever, chills, chest pain, abdominal pain, dysuria or constipation. Of note, patient complained of severe 10/10 low back pain, for which an EKG/troponin and portable CXR were done and all found to be normal. Patient reports this pain has improved today and she is currently asymptomatic. Review of Systems Constitutional: Reports: malaise. Denies: chills, fever, weakness. EENTM: Denies: blurred vision, visual changes, hearing changes, nasal congestion, throat pain. Cardiovascular: Denies: chest pain, palpitations, syncope. Respiratory: Reports: cough, short of breath, sputum production. Gastrointestinal: Denies: abdominal pain, bloating, constipation, diarrhea, nausea, vomiting. Genitourinary: Denies: dysuria, frequency, hematuria. Musculoskeletal: Denies: back pain, muscle pain. Skin: Denies: change in skin color, change in hair/nails, rash. Neurological/Psychological: Denies: headache, numbness, tingling. Hematologic/Endocrine: Denies: bruising, bleeding. Objective Last 24 Hrs of Vital Signs/I&O Vital Signs Date Time Temp Pulse Resp B/P Pulse O2 O2 Flow FiO2 Ox Delivery Rate 11/02 08 98.2 93 20 118/71 93 Nasal 2.5L Cannula 11/02 0743 96 Nasal 2.0L Cannula 11/02 0055 91 Nasal 2.5L Cannula 11/02 0037 98.0 83 18 124/58 97 Nasal 2.0L Cannula 11/02 0000 Nasal 2.5L Cannula 11/01 1620 96 Nasal 2.0L Cannula 11/01 1545 98.0 74 18 120/48 97 Nasal 3.0L Cannula Intake & Output 11/02 1600 11/02 0800 11/02 0000 Intake Total 500 300 Output Total 200 250 Balance 300 50 Intake, Oral 500 300 Number 1 1 Bowel Movements Output, Urine 200 250 Physical Exam General Appearance: Alert, Oriented X3, Cooperative, No Acute Distress Skin: No Rashes, No Significant Lesion HEENT: Atraumatic, PERRLA, Evidence of persistently cracked lips, patient does not want vasaline/ moisture Neck: Supple, No JVD Lymphatic: Cervical nl Cardiovascular: Regular Rate, Normal S1, Normal S2 Lungs: Improving air entry bilaterally, occasional rhonchi bilaterally Abdomen: Normal Bowel Sounds, Soft, No Tenderness, No Hepatospenomegaly Neurological: Normal Speech, Normal Tone Extremities: No Clubbing, No Cyanosis, No Edema Vascular: Pulses Symmetrical Current Medications: Current Medications Sig/Jabier Start time Last Medication Dose Route Stop Time Status Admin Acetaminophen 650 MG Q6P PRN 10/23 0700 AC 10/30 PO 2129 Acyclovir 1 LACEY TIDPRN PRN 11/02 0730 DC TOP Albuterol Sulfate 3 ML EVERY 4 HRS/AWAKE 10/23 0800 AC 11/02 INH 0739 Benzonatate 100 MG BID PRN 10/23 2030 AC 11/01 PO 0924 Chlorhexidine 15 ML BID 10/23 1000 AC 11/01 Gluconate PO 2111 Ciprofloxacin 750 MG BID 11/02 1000 AC PO 11/06 0959 Diltiazem HCl 180 MG DAILY 10/23 0645 AC 11/01 PO 0924 Enoxaparin Sodium 40 MG DAILY 10/23 1000 AC 11/01 SC 0923 Guaifenesin 600 MG BID 10/23 1000 AC 11/01 PO 2110 Hydrocortisone 1 LACEY DAILY 10/30 1015 DC 11/01 EXT 11/01 1001 0923 Melatonin 3 MG AT BEDTIME 10/23 2200 AC 11/01 PO 2224 Meropenem 1 GM Q12 10/28 2200 DC 11/01 IV 11/02 0000 2110 Patient Medication 1 ED .STK-MED ONE 11/01 1355 ME Teaching ED 11/01 1356 Polyethylene Glycol 17 GM DAILY 10/23 1000 AC 11/01 PO 0925 Prednisone 10 MG DAILY 11/01 1000 AC 11/01 PO 0924 Senna/Docusate Sodium 1 TAB BID PRN 10/23 0645 AC 10/27 PO 2220 Tiotropium [place] 1 PUF DAILY 10/23 1000 AC 11/01 INH 0924 Tramadol HCl 50 MG ONCE ONE 11/01 1015 DC 11/01 PO 11/01 1016 1029 Last 24 Hrs of Lab/Seth Results Last 24 Hrs of Labs/Mics: Laboratory Tests 11/02/16 0635: Anion Gap 3 L, Estimated GFR > 60, BUN/Creatinine Ratio 40.0 H 11/01/16 1025: Troponin I < 0.01 Orders Radiology Findings: EXAMINATION: XR PORTABLE CHEST CLINICAL INFORMATION: Chest pain with short of breath. COMPARISON: 10/24/2016. TECHNIQUE: Portable AP view of the chest was obtained. FINDINGS: The cardiomediastinal silhouette is within normal limits. The lungs remain moderately hyperexpanded with diffuse increase in interstitial markings and bilateral lower lobe bronchiectasis. Findings appear somewhat less prominent on today's examination more similar to 01/25/2014 exam. This suggests some improving inflammatory process on the background of chronic pulmonary disease. No dense consolidation is identified. There is no evidence of pneumothorax or pulmonary edema. Included osseous structures appear largely unremarkable. IMPRESSION: Slight improvement in bilateral opacities is suggested. No focal infiltrate to suggest pneumonia. Assessment/Plan Assessment: Ms. Toledo is a pleasant 76-year-old female with PMH of severe bilateral bronchiectasis on preventative azithromycin and high frequency chest wall oscillation, recurrent pseudomonas pneumonia, chronic interstitial lung disease, 4 mm left upper lobe nodule, advanced COPD on home oxygen 2-3 L, HTN and SVT who was sent to the ED from [facility] for sudden onset of shortness of breath. Patient was given 1 X azithromycin, ceftriaxone, and ceftazidime with 125mg IV Solumedrol in the ED. Patient was admitted to with the following problems being addressed: 1. Acute hypoxic & hypercarbic respiratory failure 2/2 Pseudomonas PNA in the setting of end-stage COPD and bilateral severe bronchiectasis * Hypoxia, leukocytosis, fever, chills noted on presentation. * Pt has hx of pseudomonas PNA. She recently failed outpatient therapy with ciprofloxacin. * Rapid flu negative. * Pulm consult with Dr. Gonzalez placed and appreciated. Dr. Gonzalez suggested switching patient to 750 mg PO BID of ciprofloxacin for a total of 14 days ( patient has 9 days left), will be given a prescription to continue this on discharge * Patient has 2 days left of prednisone taper, 5 mg on 11/03 and 5 mg on 11/04 and then she will stop. * Peridex oral solution to continue, continue robitussin AC & mucinex * TRC nebs as needed, acapella discontinued and chest PT to continue * Follow BC X2 show no growth (final), LRC shows light growth of pseudomonas, urine for strep and legionella antigen negative 2. Hyponatremia * 2/2 SIADH * Na stable today, 135 3. SVT/HTN * Continue diltiazem CD 180 mg PO daily 4. Continue home meds * Continue senna S, miralax, milk mag prn, lactobacillus, melatonin 3 mg, Vit d2 , Vitamin c 5. Malnutrition and decreased oral intake * Nutrition consult placed and appreciated, will continue to follow recommendations * Continue to encourse PO intake * Have added magic cup for supplementation, she will receive this BID, will highly recommend that this is given to patient at [facility] as she has noted malnutrition PATIENT STABLE FOR DISCHARGE BACK TO [facility] TODAY. DNR/DNI Heart Healthy Diet Mild pain pathways DVTP: Lovenox Problem List: 1. Cough productive of purulent sputum 2. COPD exacerbation 3. Acute respiratory distress 4. DNI (do not intubate) 5. DNR (do not resuscitate) 6. Tachycardia 7. SOB (shortness of breath) 8. Bronchiectasis 9. Hyponatremia 10. Rash Pain Ratin Pain Location: n/a Pain Goal: Remain pain free Pain Plan: Tylenol PO for mild pain. Consider tramadol for severe pain. Tomorrow's Labs & Rationales: Consider BEP for potential diamox use/monitoring HCO3/K. Pain Goal: Remain pain free Pain Plan: Tylenol PO for mild pain. Consider tramadol for severe pain. Tomorrow's Labs & Rationales: Consider BEP for potential diamox use/monitoring HCO3/K.
[2016-11-02 08:00] VITALS: BP 118/71
--- NOTE | 2016-11-02 11:31 | PN- Pulmonary ---
Subjective HPI/Critical Care Issues: Patient seen and examined at bedside this AM. She reports she feels better though she remains a little lethargic. Her appetite has improved as has her respiratory status. She denies fever, chills, chest pain, abdominal pain, dysuria or constipation. Of note, patient complained of severe 10/10 low back pain, for which an EKG/troponin and portable CXR were done and all found to be normal. Patient reports this pain has improved today and she is currently asymptomatic. Review of Systems Constitutional: Reports: malaise. Denies: chills, fever, weakness. EENTM: Denies: blurred vision, visual changes, hearing changes, nasal congestion, throat pain. Cardiovascular: Denies: chest pain, palpitations, syncope. Respiratory: Reports: cough, short of breath, sputum production. Gastrointestinal: reports Denies: abdominal pain, bloating, constipation, diarrhea, nausea, vomiting. Genitourinary: Denies: dysuria, frequency, hematuria. Musculoskeletal: Denies: back pain, muscle pain. Skin: Denies: change in skin color, change in hair/nails, rash. Neurological/Psychological: Denies: headache, numbness, tingling. Hematologic/Endocrine: Denies: bruising, bleeding. Objective Current Medications: Current Medications Sig/Jabier Start time Last Medication Dose Route Stop Time Status Admin Acetaminophen 650 MG Q6P PRN 10/23 0700 AC 10/30 PO 2129 Acyclovir 1 LACEY TIDPRN PRN 11/02 0730 DC TOP Albuterol Sulfate 3 ML EVERY 4 HRS/AWAKE 10/23 0800 AC 11/02 INH 0739 Benzonatate 100 MG BID PRN 10/23 2030 AC 11/01 PO 0924 Chlorhexidine 15 ML BID 10/23 1000 AC 11/02 Gluconate PO 1004 Ciprofloxacin 750 MG BID 11/02 1000 AC 11/02 PO 02/04 0959 1005 Diltiazem HCl 180 MG DAILY 10/23 0645 AC 11/02 PO 1005 Enoxaparin Sodium 40 MG DAILY 10/23 1000 AC 11/02 SC 1005 Guaifenesin 600 MG BID 10/23 1000 AC 11/02 PO 1006 Melatonin 3 MG AT BEDTIME 10/23 2200 AC 11/01 PO 2224 Meropenem 1 GM Q12 10/28 2200 DC 11/01 IV 11/02 0000 2110 Patient Medication 1 ED .STK-MED ONE 11/01 1355 DC Teaching ED 11/01 1356 Polyethylene Glycol 17 GM DAILY 10/23 1000 AC 11/01 PO 0925 Prednisone 10 MG DAILY 11/01 1000 AC 11/02 PO 1006 Senna/Docusate Sodium 1 TAB BID PRN 10/23 0645 AC 10/27 PO 2220 Tiotropium [place] 1 PUF DAILY 10/23 1000 AC 11/02 INH 1006 Vital Signs & I&O Last 24 Hrs of Vitals and I&O: Vital Signs Date Time Temp Pulse Resp B/P Pulse O2 O2 Flow FiO2 Ox Delivery Rate 11/02 0800 93 Nasal 2.5L Cannula 11/02 0800 98.2 93 20 118/71 93 Nasal 2.5L Cannula 11/02 0743 96 Nasal 2.0L Cannula 11/02 0055 91 Nasal 2.5L Cannula 11/02 0037 98.0 83 18 124/58 97 Nasal 2.0L Cannula 11/02 0000 Nasal 2.5L Cannula 11/01 1620 96 Nasal 2.0L Cannula 11/01 1545 98.0 74 18 120/48 97 Nasal 3.0L Cannula Intake & Output 11/02 1600 11/02 0800 11/02 0000 Intake Total 500 300 Output Total 200 250 Balance 300 50 Intake, Oral 500 300 Number 1 1 Bowel Movements Output, Urine 200 250 Impression/Plan Impression/Plan Impression/Plan: Chest x-ray reviewed IMPRESSION: Chronic obstructive lung disease with diffuse bronchiectasis, most prominent in the lower lung zones. Associated airway associated infection/inflammation and mucous plugging is suspected. Findings are similar to the prior exam with no evolving dense consolidation seen. Physical Exam General Appearance: Alert, Oriented X3, Cooperative, Mild Distress Other Physical Findings: Skin rash on feet, chronic HEENT Atraumatic, PERRLA, EOMI Neck Supple, No JVD Cardiovascular tachycardic Lungs diffusely decreased breath sound, with diffuse rhonchi and crackles heard bilaterally Abdomen Normal Bowel Sounds, Soft, No Tenderness Neurological Normal Speech Extremities No Edema IMPRESSION This is a lady with very advanced end-stage lung disease with COPD and bilateral bronchiectasis with chronic Pseudomonas colonization, on maximum medical therapy now comes in with * REsolving Acute hypoxemic and hypercarbic respiratory failure due to worsening Pseudomonas infection. now better on meropenam * Severe lung disease with end-stage COPD and bilateral severe bronchiectasis related to previous infections with Pseudomonas colonization with recurrent infection now with acute infection suggestive of Pseudomonas infection. 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 PLease note pt has been on cipro on and off uptil recently for her treatment and clearly Failed RECOMMENDATION * PO cipro 750 bid for one more week to finish a total abx of 14 days. * Prednisone tapered to 5 mg in the next three days * Resume her outpatient azithromycin for prevention of Pseudomonas infections * Aggressive bowel regimen * Increase her calorie intake if pt able * Chest pt bid daily. No need for Mucomyst * Potassium 40 meq daily to keep potassium more than 4 * Start diamox 250 mg on tuesday and * Continue bowel regime Patient wishes to be DNR/DNI does not want to go to intensive care does not wish any other life-support she would like to continue her current therapy for now.
== END 2016-11-02 14:05 | DRG 177 ==
LOC: ENRESERVDT → ENRESERVTM → CANRESERV → ERH 04:22 → ERHI 04:45 → ENPENDDIS 04:45 → 2NB 04:45
PROVIDERS: Internal Medicine; Internal Medicine Hematology & Oncology; Pediatrics; ADMIT Internal Medicine
DX: J15.1 Pneumonia due to Pseudomonas (principal); J96.22 Acute and chronic respiratory failure with hypercapnia; J96.21 Acute and chronic respiratory failure with hypoxia; R64 Cachexia; E22.2 Syndrome of inappropriate secretion of antidiuretic hormone; E46 Unspecified protein-calorie malnutrition; Z68.1 Body mass index [BMI] 19.9 or less, adult; J44.1 Chronic obstructive pulmonary disease with (acute) exacerbation; J98.8 Other specified respiratory disorders; Z99.81 Dependence on supplemental oxygen; I10 Essential (primary) hypertension; R00.0 Tachycardia, unspecified
CPT/HCPCS: 2NBSP; 36415; 81001; 82436; 87040; 87070; 87086; 87449; 87450; 87804; 87804-59; 93005; 93010; 94799; J0456; J0696; J0713; J1650; J2060; J2185; J2920; J3370; J7042; J7060; J7512; J7608

== ENCOUNTER 2017-09-28 11:44 | Inpatient (IN) | payer OTHER ==
[~2017-09-28] VITALS: Ht 157.5 cm; Wt 47.2 kg
[~2017-09-28 11:44] MED LIST changes: +ACETAMINOPHEN500 M4 PO; -ACIDOPHILUS1 CAP PO; +ACIDOPHILUS1 EACH PO; +ATIVAN0.5 M1 PO; +AZITHROMYCIN250 M1 PO; +BISACODYL10 M1 RC; -CARDIZEM CD180 MG PO; +CARDIZEM CD240 M1 PO; +CIPROFLOXACIN750 M1 PO; +DALIRESP500 MC1 PO; -DALIRESP500 MCG PO; +FLEET ENEMA133 ML RC; +FLOVENT HFA12 G1 INH; -FLOVENT0.11 MG/Ac INH; +MILK OF MA400 MG/52 PO; +MIRALAX17 G1 PO; -MUCINEX ER600 MG PO; +MUCINEX600 M1 PO; -PERIOGARD 473473 ML PO; +PERIOGARD473 ML PO; +PREDNISONE10 M2 PO; -SPIRIVA 18 MCG18 MCG INH; +SPIRIVA18 MCG INH; +VITAMIN C250 M3 PO
[2017-09-28 11:59] LABS: ABSOLUTE BASOPHIL COUNT 0 /CUMM (0.0-0.2); ABSOLUTE EOSINOPHIL COUNT 0 /CUMM (0.0-0.7); ABSOLUTE GRANULOCYTE CT 10.3 /CUMM (1.4-6.5); ABSOLUTE LYMPH COUNT 1.3 /CUMM (1.2-3.4); ABSOLUTE MONOCYTE COUNT 0.4 /CUMM (0.10-0.60); BASOPHIL % 0.3 % (0.0-2.0); EOSINOPHIL % 0 % (0-5); GRANULOCYTE % 85.8 % (42.2-75.2); HEMATOCRIT 34.8 % (37-47); MEAN CORPUSCULAR HGB 28.5 PG (27.0-31.0); MEAN CORPUSCULAR HGB CONC 32.9 G/DL (33.0-37.0); MEAN CORPUSCULAR VOLUME 86.5 FL (81.0-99.0); MEAN PLATELET VOLUME 7.8 FL (7.4-10.4); PLATELET COUNT 234 /CUMM (130-400); RBC DISTRIBUTION WIDTH 13.9 % (11.5-14.5); RED BLOOD CELL CT 4.02 /CUMM (4.20-5.40); WHITE BLOOD CELL COUNT 11.9 /CUMM (4.8-10.8)
--- NOTE | 2017-09-28 12:43 | ED DYSPNEA/ASTHMA COMPLAINT ---
History of Present Illness General Chief Complaint: Dyspnea (COPD, CHF, Other) Stated Complaint: BIBA SOB Source: patient, EMS Exam Limitations: no limitations Vital Signs & Intake/Output Vital Signs & Intake/Output Vital Signs Date Time Temp Pulse Resp B/P B/P Pulse O2 O2 Flow FiO2 Mean Ox Delivery Rate 09/28 1214 91 Nasal 2.0L Cannula 09/28 1145 97.9 91 25 170/74 99 Aerosol 10L Mask Allergies Coded Allergies: Penicillins (UNKNOWN 09/28/17) Reconcile Medications Albuterol Sulfate 2.5 MG/3 ML (0.083 %) VIAL.NEB 1 Vial INH/ROSSY Q6H PRN WHEEZING (Reported) Albuterol Sulfate 2.5 MG/3 ML (0.083 %) VIAL.NEB 1 Vial INH/ROSSY Q6H PRN WHEEZING (Reported) Ascorbic Acid (Vitamin C) 250 MG TABLET 1 TAB PO DAILY supplement (Reported) Azithromycin 500 MG TABLET 1 TAB PO 3XW ANTIBIOTIC (Reported) Bisacodyl 10 MG SUPP.RECT 1 SUP RC DAILY PRN CONSTIPATION (Reported) Chlorhexidine Gluconate (Periogard) 0.12 % MOUTHWASH 15 ML PO BID ORAL CARE ( Reported) Cholecalciferol (Vitamin D3) (Vitamin D) 1,000 UNIT TABLET 1 TAB PO DAILY SUPPLEMENT (Reported) Diltiazem HCl (Cardizem Cd) 180 MG CAP.ER.24H 1 CAP PO DAILY HEART/BP ( Reported) Fluticasone Propionate (Flovent Hfa) 110 MCG/ACTUATION AER.W.ADAP 2 PUF INH BID RESP. (Reported) Furosemide (Lasix) 20 MG TABLET 1 TAB PO DAILY DIURETIC (Reported) Guaifenesin (Mucinex) (Unknown Strength) TAB.ER.12H (Unknown Dose) PO BID MUCUS (Reported) Lactobacillus Acidophilus (Acidophilus) 1 EACH CAPSULE 1 CAP PO BID PROBIOTIC (Reported) Magnesium Hydroxide (Milk Of Magnesia) 400 MG/5 ML ORAL.SUSP 5 ML PO BID PRN CONSTIPATION (Reported) Melatonin (Unknown Strength) TABLET (Unknown Dose) PO AD SUPPLEMENT (Reported ) Na Phos,M-B/Na Phos,Di-Ba (Fleet Enema) 19 GRAM-7 GRAM/118 ML ENEMA 1 E RC ONCE PRN CONSTIPATION (Reported) Ondansetron HCl (Zofran) 4 MG TABLET 1 TAB PO Q8H PRN NAUSEA (Reported) Polyethylene Glycol 3350 (Miralax) 17 GRAM POWD.PACK 1 PAC PO DAILY constipation (Reported) dissolve in water Roflumilast (Daliresp) 500 MCG TABLET 1 TAB PO DAILY RESP. (Reported) Sennosides (Senna) (Unknown Strength) TABLET (Unknown Dose) PO AD GI ( Reported) Tiotropium [place] (Spiriva) 18 MCG CAP.W.DEV 1 CAP INH DAILY RESP. (Reported ) Triage Note: PT BIBA FROM DR. SAGASTUME'S OFFICE (LINOTYPE WORKER) FOR INCREASED SOB OVER THE LAST FEW DAYS. PT NORMALLY RESIDES AT [facility] AND IS CHRONICALLY ON 2L NC OXYGEN. IN OFFICE, PT'S O2 SAT WAS 80'S ON BASELINE 2L NC. PT GIVEN 125 MG SOLUMEDROL AND 1 DUONEB EN ROUTE. PT ARRIVES TACHYPNIC, ON DUONEB WITH O2 SAT 100%. DENIES CURRENT CHEST PAIN TODAY BUT HAS INTERMITTENT CHEST PAIN REGULARLY. IN ADDITION TO INCREASED SOB, PT ALSO HAS HAD PRODUCTIVE YELLOW COUGH. DIAGNOSES INCLUDE: BRONCHIECTASIS, END STAGE COPD AND EMPHYSEMA. Triage Nurses Notes Reviewed? yes Onset: Abrupt Duration: day(s): (3-4), constant, continues in ED, getting worse Timing: recent history Severity: mild, moderate Activities at Onset: activity Prior Episodes/Possible Cause: occasional episodes Modifying Factors: Worsens With: movement. Associated Symptoms: cough, chest pain, wheezing, weakness LMP (ages 10-50): post menopausal, unknown : No Patient currently breastfeeds: No HPI: 77-year-old female past medical history of end-stage COPD bronchiectasis franki in by ambulance for evaluation of hypoxia shortness of breath cough and wheezing. 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 Sagastume. She was seeing Dr. Sagastume because for the last 3 or 4 days she's been short of breath and having a cough. reports the patient was satting in the high 80s on her normal 2 L nasal cannula. Patient reports she feels short of breath coughing and has some central sternal chest pain. This is been going on for 3 or 4 days getting worse. Cough is productive. She's been using her inhalers without improvement. Patient received 125 IV Solu-Medrol and a DuoNeb on the way. He does feel better after this. Symptoms are worse with movement and exertion. Patient resides at a extended care facility. She is a DNR DNI. Additionally patient has been having diarrhea and needs to be evaluated for C. difficile. (Dariusz Michaud) Past History Travel History Traveled to [place] past 21 day No Medical History Any Pertinent Medical History? 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 PULMONARY HTN Gastrointestinal: NONE Hepatic: NONE Renal: NONE Musculoskeletal: ARTHRITIS OSTEOPOROSIS Psychiatric: NONE Endocrine: HYPONATREMIA R/T SIADH Blood Disorders: NONE Cancer(s): NONE SANITATION ENGINEER/Reproductive: NONE History of MRSA: No History of VRE: No History of CDIFF: No Surgical History Surgical History: N Psychosocial History Who do you live with Patient/Self Services at Home Oxygen What is your primary language Upper Sorbian Tobacco Use: Never used ETOH Use: denies use Illicit Drug Use: denies illicit drug use Family History Family History, If Any: MOTHER FH: heart disease SISTER FH: diabetes mellitus Relation not specified for: Family history unknown Hx Contributory? No (Dariusz Michaud) Review of Systems Review of Systems Constitutional: Reports: no symptoms. EENTM: Reports: no symptoms. Respiratory: Reports: see HPI, cough, short of breath, wheezing. Cardiovascular: Reports: see HPI, chest pain. GI: Reports: no symptoms. Genitourinary: Reports: no symptoms. Musculoskeletal: Reports: no symptoms. Skin: Reports: no symptoms. Neurological/Psychological: Reports: no symptoms. Hematologic/Endocrine: Reports: no symptoms. Immunologic/Allergic: Reports: no symptoms. All Other Systems: Reviewed and Negative (Dariusz Michaud) Physical Exam Physical Exam General Appearance: well developed/nourished, no apparent distress, alert, awake , thin Head: atraumatic, normal appearance Eyes: Bilateral: normal appearance, PERRL, EOMI. Ears, Nose, Throat: normal pharynx, normal ENT inspection, hearing grossly normal Neck: normal inspection, supple, full range of motion Respiratory: quiet respiration, decreased breath sounds, wheezing, respiratory distress Cardiovascular: regular rate/rhythm, normal peripheral pulses Peripheral Pulses: 2+ radial (R), 2+ radial (L) Gastrointestinal: normal bowel sounds, soft, non-tender, no organomegaly Extremities: normal inspection, normal range of motion, no edema Neurologic/Psych: no motor/sensory deficits, awake, alert, oriented x 3, normal gait Skin: intact, normal color, warm/dry Lymphatic: no anterior cervical kwasi Core Measures ACS in differential dx? Yes CVA/TIA Diagnosis No Sepsis Present: No Sepsis Focused Exam Completed? No (Wiliam SHARIF,Dariusz) Progress Differential Diagnosis: asthma, AMI, bronchitis, CHF, COPD, pulmonary embolism, pneumonia, pneumothorax Plan of Care: Orders Procedure Date/time Status Regular Diet 09/28 D Active Patient Data 09/28 1412 Active LOWER RESPIRATORY CULTURE 09/28 1351 Active C.DIFFICILE 09/28 1351 Active BLOOD CULTURE 09/28 1351 Active OXYGEN SETUP (GEN) 09/28 1349 Active Saline Lock 09/28 1349 Active Admit to inpatient 09/28 1349 Active Vital Signs 09/28 1349 Active Activity/Ambulation 09/28 1349 Active Code Status 09/28 1349 Active Add-on Test (ER Only) 09/28 1242 Active Intake & Output 09/28 1206 Active URINALYSIS 09/28 1150 Complete TROPONIN LEVEL 09/28 1150 Complete MAGNESIUM 09/28 1150 Complete D-DIMER 09/28 1150 Complete COMPREHENSIVE METABOLIC PANEL 09/28 1150 Complete CBC WITHOUT DIFFERENTIAL 09/28 1150 Complete B-TYPE NATRIURETIC PEP (BNP) 09/28 1150 Complete EKG 09/28 1144 Active Laboratory Tests 09/28/17 1204: Urine Color YEL, Urine Clarity CLEAR, Urine pH 6.0, Ur Specific [place] 1.010, Urine Protein NEG, Urine Ketones NEG, Urine Nitrite NEG, Urine Bilirubin NEG, Urine Urobilinogen 0.2, Ur Leukocyte Esterase NEG, Ur Microscopic EXAM NOT REQUIRED, Urine Hemoglobin NEG, Urine Glucose NEG 09/28/17 1150: Anion Gap 8, Estimated GFR > 60, BUN/Creatinine Ratio 35.0 H, Glucose 128 H, Calcium 9.7, Magnesium 1.9, Total Bilirubin 0.6, AST 23, ALT 25, Alkaline Phosphatase 92, Troponin I < 0.01, Owc-E-Xelputqlodx Pept 88.0, Total Protein 7.4, Albumin 4.2, Globulin 3.2, Albumin/Globulin Ratio 1.3, D-Dimer High Sensitivty < 200, CBC w Diff MAN DIFF ORDERED, RBC 4.02 L, MCV 86.5, MCH 28.5, RDW 13.9, MPV 7.8, Gran % 85.8 H, Lymphocytes % 10.6 L, Monocytes % 3.3, Eosinophils % 0, Basophils % 0.3, Absolute Granulocytes 10.3 H, Absolute Lymphocytes 1.3, Absolute Monocytes 0.4, Absolute Eosinophils 0, Absolute Basophils 0, Platelet Estimate ADEQUATE, Hypochromic-Microcytic 1+, Anisocytosis 1+, PUBS MCHC 32.9 L Microbiology 09/28 1449 BLOOD: Blood Culture - RECD 09/28 1351 LOWER RESP: Respiratory Culture - ORD 09/28 135 LOWER RESP: Gram Stain - ORD 09/28 135 STOOL: Clostridium difficile Toxin A & B - ORD 09/28 1351 BLOOD: Blood Culture - ORD Patient seen and evaluated. She arrived with DuoNeb in progress in mild respiratory distress. She has diminished breath sounds bilaterally. Oxygen was titrated back to 2 L which is patient's normal. She has an elevated white blood cell count and evidence of pneumonia on her chest x-ray. Spoke with Dr. Sagastume he recommends admitting the patient for IV Fortaz 60 mg prednisone daily pulmonology consult. Additionally patient needs testing for C. difficile. Patient has a negative d-dimer negative troponin. Case discussed with Dr. CHAUHAN he agrees Diagnostic Imaging: Viewed by Me: Radiology Read. Discussed w/RAD: Radiology Read. Radiology Impression: PATIENT: RAD COLLINS PRESENT AGE: 77 PATIENT ACCOUNT NO: [id number] : 39 LOCATION: [facility] ORDERING PHYSICIAN: Dariusz SHARIF SERVICE DATE: 09/28/17 EXAM TYPE: RAD - XRY- PORTABLE CHEST XRAY EXAMINATION: XR PORTABLE CHEST CLINICAL INFORMATION: Congestive heart failure, pneumonia, shortness of breath. Cough. Hypoxia x3 days COMPARISON: 11/01/16 TECHNIQUE: Portable frontal view of the chest was obtained. FINDINGS: Monitoring devices overlie the patient. Jewelry present. Lordotic projection with moderate rotation toward the right. The cardiac size is within normal limits. The left hilum is normal. There is no consolidation in the left lung. There are reticular opacities in the left lung including the medial left apex. A small patchy density at the left base could represent a summation density. There is some increased density in the right lower lung including the middle lobe. This is accentuated by positioning but I suspect there is a parenchymal opacity. There is no pneumothorax. Limited bone detail IMPRESSION: Limited study. Right base opacity. Pneumonia or atelectasis may be present. This represents an interval worsening since 11/01/16 DICTATED BY: Wan Fang MD DATE/TIME DICTATED:09/28/171251 MEDICAL CHARGE ENTRY SPECIALIST:BLAISE DATE/TIME TRANSCRIBED:09/28/171251 CONFIDENTIAL, DO NOT COPY WITHOUT APPROPRIATE AUTHORIZATION. Initial ED EKG: SINUS ARRHYTHMIA, VENTRICULAR PREMATURE COMPLEX, PROBABLE LEFT ATRIAL NORMALITY (Dariusz Michaud) Departure Departure Disposition: STILL A PATIENT Condition: Stable Clinical Impression Primary Impression: COPD exacerbation Secondary Impressions: Pneumonia Qualifiers: Pneumonia type: due to unspecified organism Laterality: right Lung location: unspecified part of lung Qualified Code: J18.9 - Pneumonia, unspecified organism Referrals: Marycarmen Groves MD (PCP/Family) Departure Forms: Customer Survey General Discharge Information Admission Note Spoke With: Jennifer Nazario MD Documentation of Exam: Documentation of any treatments & extenuating circumstances including Concerns Regarding Discharge (functional status, medication knowledge or non-compliance, living conditions, etc.) that warrant an admission rather than observation: [IV ANTIbiotics, IV fluids, pulmonology consult, follow-up cultures, serial labs, serial imaging] (Dariusz Michaud) PA/ELEVATED WORK PLATFORM OPERATOR Co-Sign Statement Statement: ED Attending supervision documentation- x I saw and evaluated the patient. I have also reviewed all the pertinent lab results and diagnostic results. I agree with the findings and the plan of care as documented in the PA's/ELEVATED WORK PLATFORM OPERATOR's documentation. Progressive weakness, hypoxia, with diarrhea after recent antibiotics [] I have reviewed the ED Record and agree with the PA's/ELEVATED WORK PLATFORM OPERATOR's documentation. [] Additions or exceptions (if any) to the PAs/ELEVATED WORK PLATFORM OPERATOR's note and plan are summarized below: [] (Klaudia ABDI,[place]) Critical Care Note Critical Care Note Critical Care Time: non-applicable (Dariusz Michaud) ED Attending Observation Initial Observation Note: I have seen and personally examined RAD COLLINS on 09/28/17 at 1243. I agree with the current emergency department documentation. The disposition (admission or discharge) is uncertain at this time, she needs a period of observation for the following reason(s): The ED Nurse caring for this patient has been personally informed as to what the patient is being observed for. (Wiliam SHARIF,Dariusz)
--- NOTE | 2017-09-28 12:57 | RADIOLOGY REPORT ---
EXAMINATION: XR PORTABLE CHEST CLINICAL INFORMATION: Congestive heart failure, pneumonia, shortness of breath. Cough. Hypoxia x3 days COMPARISON: 11/01/16 TECHNIQUE: Portable frontal view of the chest was obtained. FINDINGS: Monitoring devices overlie the patient. Jewelry present. Lordotic projection with moderate rotation toward the right. The cardiac size is within normal limits. The left hilum is normal. There is no consolidation in the left lung. There are reticular opacities in the left lung including the medial left apex. A small patchy density at the left base could represent a summation density. There is some increased density in the right lower lung including the middle lobe. This is accentuated by positioning but I suspect there is a parenchymal opacity. There is no pneumothorax. Limited bone detail IMPRESSION: Limited study. Right base opacity. Pneumonia or atelectasis may be present. This represents an interval worsening since 11/01/16
[2017-09-28] MEDS ORDERED: FLOVENT HFA12 G1 INH (14:04)
[2017-09-28] MEDS ORDERED: ALBUTEROL2.5 MG/3 M INH/SOL (14:07)
[2017-09-28] MEDS ORDERED: VITAMIN D1000 UNIT PO (14:13)
[2017-09-28] MEDS ORDERED: LASIX20 M1 PO (14:14)
[2017-09-28] MEDS ORDERED: MELATONIN3 M4 PO (14:17)
[2017-09-28] MEDS ORDERED: ZOFRAN4 M2 PO (14:20)
[2017-09-28] MEDS ORDERED: SENNA8.6 M3 PO (14:21)
--- NOTE | 2017-09-28 14:28 | History & Physical ---
Joann Mitchell 09/28/17 1426: General Information and HPI MD Statement: I have seen and personally examined RAD COLLINS and documented this H&P. The patient is a 77 year old F who presented with a patient stated chief complaint of [Shortness of Breath]. Source of Information: patient Exam Limitations: no limitations History of Present Illness: Mr. 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 Gonzalez for evaluation of shortness of breath for 3-4 days. Patient was being taken cared in [place]. She started feeling shortness of breath 3-4 days, with productive yellowish green sputum, and her usual regimen of p.o. steroids, Mucinex, and albuterol inhaler did not help improve her symptoms. Patient was seen by Dr. Gonzalez to the office, with O2 saturation dropping to 80%. Patient was given 125 mL of Solu-Medrol plus at the overlap in the office, and then was sent to ER. Patient also complaining of some chest pain/pressure, associated with coughing, congestion, however non- radiating to the jaw/shoulder. 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 Patient denied fever/night sweat/weight change/mood change/insomnia, dietary/ appetite change. Patient denied Abdominal pain, admitted on/off constipation/diarrhea, but no urinary abnormality, or other skin/musculoskeletal/neurological disorders. Allergies/Medications Allergies: Coded Allergies: Penicillins (UNKNOWN 09/28/17) Home Med list Albuterol Sulfate 2.5 MG/3 ML (0.083 %) VIAL.NEB 1 Vial INH/ROSSY Q6H PRN WHEEZING (Reported) Albuterol Sulfate 2.5 MG/3 ML (0.083 %) VIAL.NEB 1 Vial INH/ROSSY Q6H PRN WHEEZING (Reported) Ascorbic Acid (Vitamin C) 250 MG TABLET 1 TAB PO DAILY supplement (Reported) Azithromycin 500 MG TABLET 1 TAB PO 3XW ANTIBIOTIC (Reported) Bisacodyl 10 MG SUPP.RECT 1 SUP RC DAILY PRN CONSTIPATION (Reported) Chlorhexidine Gluconate (Periogard) 0.12 % MOUTHWASH 15 ML PO BID ORAL CARE ( Reported) Cholecalciferol (Vitamin D3) (Vitamin D) 1,000 UNIT TABLET 1 TAB PO DAILY SUPPLEMENT (Reported) Diltiazem HCl (Cardizem Cd) 180 MG CAP.ER.24H 1 CAP PO DAILY HEART/BP ( Reported) Fluticasone Propionate (Flovent Hfa) 110 MCG/ACTUATION AER.W.ADAP 2 PUF INH BID RESP. (Reported) Furosemide (Lasix) 20 MG TABLET 1 TAB PO DAILY DIURETIC (Reported) Guaifenesin (Mucinex) (Unknown Strength) TAB.ER.12H (Unknown Dose) PO BID MUCUS (Reported) Lactobacillus Acidophilus (Acidophilus) 1 EACH CAPSULE 1 CAP PO BID PROBIOTIC (Reported) Magnesium Hydroxide (Milk Of Magnesia) 400 MG/5 ML ORAL.SUSP 5 ML PO BID PRN CONSTIPATION (Reported) Melatonin (Unknown Strength) TABLET (Unknown Dose) PO AD SUPPLEMENT (Reported ) Na Phos,M-B/Na Phos,Di-Ba (Fleet Enema) 19 GRAM-7 GRAM/118 ML ENEMA 1 E RC ONCE PRN CONSTIPATION (Reported) Ondansetron HCl (Zofran) 4 MG TABLET 1 TAB PO Q8H PRN NAUSEA (Reported) Polyethylene Glycol 3350 (Miralax) 17 GRAM POWD.PACK 1 PAC PO DAILY constipation (Reported) dissolve in water Roflumilast (Daliresp) 500 MCG TABLET 1 TAB PO DAILY RESP. (Reported) Sennosides (Senna) (Unknown Strength) TABLET (Unknown Dose) PO AD GI ( Reported) Tiotropium [place] (Spiriva) 18 MCG CAP.W.DEV 1 CAP INH DAILY RESP. (Reported ) Past History Travel History Traveled to [place] past 21 day No Medical History Neurological: NONE EENT: NONE Cardiovascular: hypertension, MILD TRICUSPID REGURGITAT TION PAROXYSMAL SVT MITRAL VALVE REGURG Respiratory: severe, oxygen dependent COPD, bilateral cylindrical bronchiectasis , recurrent pseudomonas pneumonia, chronic interstitial lung disease, left upper lobe lung nodule CHRONIC RESP FAILURE WITH HYPOXIA & HYPERCARBIA PULMONARY HTN Gastrointestinal: NONE Hepatic: NONE Renal: NONE Musculoskeletal: ARTHRITIS OSTEOPOROSIS Psychiatric: NONE Endocrine: HYPONATREMIA R/T SIADH Blood Disorders: NONE Cancer(s): NONE 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 Exam & Diagnostic Data Last 24 Hrs of Vital Signs/I&O Vital Signs Date Time Temp Pulse Resp B/P B/P Pulse O2 O2 Flow FiO2 Mean Ox Delivery Rate 09/28 1214 91 Nasal 2.0L Cannula 09/28 1145 97.9 91 25 170/74 99 Aerosol 10L Mask Intake & Output 09/28 1600 09/28 0800 09/28 0000 Intake Total 0 Output Total 400 Balance -400 Intake, Oral 0 Output, Urine 400 Patient 52.163 kg Weight Weight Estimated Measurement Method Physical Exam General Appearance Alert, Oriented X3, Cooperative, No Acute Distress Skin No Rashes, No Breakdown, No Significant Lesion Skin Temp/Moisture Exam: Warm/Dry Sepsis Skin Exam (color): Normal for Ethnicity HEENT Atraumatic, PERRLA Neck Supple, No JVD Cardiovascular Regular Rate, arrythmia on EKG but not auscultated Lungs Diminished breath sounds b/l lung, with some rhonchi but no wheeze. Abdomen Normal Bowel Sounds, Soft, No Tenderness Neurological Normal Speech, Strength at 5/5 X4 Ext Extremities No Edema, Normal Pulses Last 24 Hrs of Labs/Seth: Laboratory Tests 09/28/17 1204: Urine Color YEL, Urine Clarity CLEAR, Urine pH 6.0, Ur Specific [place] 1.010, Urine Protein NEG, Urine Ketones NEG, Urine Nitrite NEG, Urine Bilirubin NEG, Urine Urobilinogen 0.2, Ur Leukocyte Esterase NEG, Ur Microscopic EXAM NOT REQUIRED, Urine Hemoglobin NEG, Urine Glucose NEG 09/28/17 1150: Anion Gap 8, Estimated GFR > 60, BUN/Creatinine Ratio 35.0 H, Glucose 128 H, Calcium 9.7, Magnesium 1.9, Total Bilirubin 0.6, AST 23, ALT 25, Alkaline Phosphatase 92, Troponin I < 0.01, Sot-F-Lpoxpttxxtn Pept 88.0, Total Protein 7.4, Albumin 4.2, Globulin 3.2, Albumin/Globulin Ratio 1.3, D-Dimer High Sensitivty < 200, CBC w Diff MAN DIFF ORDERED, RBC 4.02 L, MCV 86.5, MCH 28.5, RDW 13.9, MPV 7.8, Gran % 85.8 H, Lymphocytes % 10.6 L, Monocytes % 3.3, Eosinophils % 0, Basophils % 0.3, Absolute Granulocytes 10.3 H, Absolute Lymphocytes 1.3, Absolute Monocytes 0.4, Absolute Eosinophils 0, Absolute Basophils 0, Platelet Estimate ADEQUATE, Hypochromic-Microcytic 1+, Anisocytosis 1+, PUBS MCHC 32.9 L Microbiology 09/28 1449 BLOOD: Blood Culture - RECD 09/28 135 LOWER RESP: Respiratory Culture - ORD 09/28 135 LOWER RESP: Gram Stain - ORD 09/28 1351 STOOL: Clostridium difficile Toxin A & B - ORD 09/28 1351 BLOOD: Blood Culture - ORD Diagnostic Data CXR Results Sinus arrthymia Assessment/Plan Assessment: Mr. 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 Gonzalez for evaluation of shortness of breath for 3-4 days, with productive cough and no improvement with home meds including steroid/inhaler/musinex. 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 Assessment: Patient's ROS otherwise negative. Patient's clinical picture presented with COPD exacerbation despite being chronic retainer of CO2 based on ABG history. Patient 's CBC showed leukocytosis despite afebrile w/o sepsis, CXR showed unclear findings of pneumonia/atelectasis, despite previous history of recurrent pseudomonas infection w/ bronchoatelectasis, however still warrants IV Abx treatment in this admission. Objective Vitals:VSS afebrile satting >90% on 2LNC Physical exam -Gen.: AO x3, cooperative, no distress, -HEENT: NCAT, PERRL, moist mucous membranes -Neck: Supple, no JVD, trachea midline, mild accessory respiratory muscle use -Cardio: Normal S1/S2 without significant murmurs/gallops/rubs -Pulmonary: grossly normal air movement w/ diminished air entry b/l lung, no wheeze -Abdomen: Soft, nontender, nondistended, bowel sounds intact -Neuro: Awake and alert -Extremity: Normal pulses/capillary refill, no cyanosis/clubbing/edema Labs/imaging/EKG/interventions -CBC: WBC 11.9, H/H 11.4/34/8, Gran >80%, no bandemia -BMP: WNL, Glucose 128, Trop -ve -CXR: Limited study. Right base opacity. Pneumonia or atelectasis may be present. -EKG: sinus arrythmia without significant ST-T abnormalities. -Interventions in ER: Ceftaz 1g x 1 Problem list & Plan #COPD exacerbation w/ End-stage COPD #Recurrent Pseudomonas Infection w/ Bronchoatelectasis #Chronic med conditions including Hypertension, arrythmia, SIADH w/ chronnic hyponatremia - Admit to Gen Med - Continue 2LNC, TRC/Neb as needed - Started Ceftaz 1g q8 for Pseudomonas coverage, IV solumedrol 40mg q12 for resp distress - Continue home med Roflumilast 500mcg qd. - Continue home meds including Lasix 20mg qd, diltiazem 180mg ER qd - Pending Pulm Consult from Dr. Gonzalez - Confirm meds w/ [facility]. - CBC/BEP in the AM - Pending culture results DVT prophylaxis Lovenox + ALPS Regular Diet DNR/DNI As Ranked By This Provider Problem List: 1. COPD (chronic obstructive pulmonary disease) Core Measures/Misc (06/19) Acute Coronary Syndrome ACS Diagnosis: No Congestive Heart Failure Congestive Heart Failure Diagnosis No Cerebrovascular Accident CVA/TIA Diagnosis: No VTE (View Protocol) VTE Risk Factors Age>40 No Mechanical VTE Prophylaxis d/t N/A MechProphylax Ordered No VTE Pharm Prophylaxis d/t NA PharmProphylax ordered Sepsis (View protocol) Sepsis Present: No Dedrick Hwang 09/28/17 1548: Resident Review Statement Resident Statement: examined this patient, discussed with regulatory intern, agreed with regulatory intern, discussed with family, reviewed EMR data (avail) Other Findings: Mrs. Collins is a 77 lady with PMHX. 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 She was treated recently for pneumonia, iv antibiotic course finished before , she developed SOB and productive cough over the last 2 days, patient was seen at her sawmill manager office today, she was desating low 80's, she was sent in her for more evaluation and to be treated for penumonia. Vitals, exmination and labs as above. Assessment: -Hx. of bronchiectasis, recurrent pseudomonal penumonia -COPD exacerbation -HTN Plan: -Will admitt to Gen med floor -Blood cultures, sputum culture was sent will F/U -Will start Solu-Medrol 40mg BID -She was given IV ceftazidime at ED will continue -Pulmonology consult with -Continue home [facility] -Will repeat CBC, bep tmorrow -Will confirm her medication -Will continue cardizem, low dose lasix dvt PPX; sc lOVENOX DNR/DNI Mansi ABDI,Jennifer 09/28/17 1639: Attending MD Review Statement Attending Statement Attending MD Statement: examined this patient, discuss w/resident/PA/VP PROJECT, agreed w/resident/PA/VP PROJECT, reviewed EMR data (avail), discussed with nursing, reviewed images Attending Assessment/Plan: See medical brief addendum note dated 09/28/17
--- NOTE | 2017-09-28 14:33 | Admission Certification ---
Admission Certification Certification Statement - As attending physician, I certify that at the time of - admission, based on clinical presentation, severity of - symptoms, need for further diagnostic testing and - therapeutic interventions, and risk of adverse outcomes - without in-hospital treatment, in my clinical assessment, - this patient requires an acute hospital stay for a minimum - of two nights or longer. I have also considered psychsocial - factors such as support system, advanced age, financial - issues, cognitive issues, and failed out-patient treatments, - past re-admission history, safety of patient, and lack of - compliance as applicable. Specific rationale supporting this admission is: COPD exacerbation with gram-negative pneumonia.
--- NOTE | 2017-09-28 15:28 | PN- Att Addend ---
Attending Addendum Attending Brief Note 77-year-old female past medical history of end-stage COPD with severe emphysema and bronchiectasis and history of Pseudomonas/gram-negative pneumonia in the past. She is at [place] in addition she also has chronic hypercapnic and hypoxic respiratory failure on 2 L of oxygen. Today she is coming in with acute hypoxemic respiratory failure as evidenced by a sat of 80% on 2 L. She got IV steroids in route and is having cough with yellow sputum with a white count with left shift and a chest x-ray suggestive of pneumonia. We'll bring her into GEN med, treat her with IV steroids. Given the fact she is grown Pseudomonas in the past and the bronchiectasis will treat her with IV ceftaz for a presumed Pseudomonas pneumonia. Rishi Gonzalez MD will see her in consult. It appears that she is chronically steroid dependent and will have to confirm that to Dr. Gonzalez. We'll continue her low-dose Lasix and watch her bicarbonate closely as she already has this chronic metabolic alkalosis. She does have a history of CO2 retention and will need to watch closely and avoid any sedatives. Give her Lovenox for DVT prophylaxis and follow closely.
--- NOTE | 2017-09-28 16:39 | Cons- Pulmonary ---
General Information and HPI Consulting Request Date of Consult: 09/28/17 Requested By: med team History of Present Illness: Mr. 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 Gonzalez for evaluation of shortness of breath for 3-4 days. Patient was being taken cared in [place]. She started feeling shortness of breath 3-4 days, with productive yellowish green sputum, and her usual regimen of p.o. steroids, Mucinex, and albuterol inhaler did not help improve her symptoms. Seen in my office today with sig dyspnea and was hypoxic and pt was complaining of diarrhea Sent to the ed for eval. Patient denied fever/night sweat/weight change/mood change/insomnia, dietary/ appetite change. Patient denied Abdominal pain, admitted on/off constipation/diarrhea, but no urinary abnormality, or other skin/musculoskeletal/neurological disorders. Allergies/Medications Allergies: Coded Allergies: Penicillins (UNKNOWN 09/28/17) Home Med List: Albuterol Sulfate 2.5 MG/3 ML (0.083 %) VIAL.NEB 1 Vial INH/ROSSY Q6H PRN WHEEZING (Reported) Albuterol Sulfate 2.5 MG/3 ML (0.083 %) VIAL.NEB 1 Vial INH/ROSSY Q6H PRN WHEEZING (Reported) Ascorbic Acid (Vitamin C) 250 MG TABLET 1 TAB PO DAILY supplement (Reported) Azithromycin 500 MG TABLET 1 TAB PO 3XW ANTIBIOTIC (Reported) Bisacodyl 10 MG SUPP.RECT 1 SUP RC DAILY PRN CONSTIPATION (Reported) Chlorhexidine Gluconate (Periogard) 0.12 % MOUTHWASH 15 ML PO BID ORAL CARE ( Reported) Cholecalciferol (Vitamin D3) (Vitamin D) 1,000 UNIT TABLET 1 TAB PO DAILY SUPPLEMENT (Reported) Diltiazem HCl (Cardizem Cd) 180 MG CAP.ER.24H 1 CAP PO DAILY HEART/BP ( Reported) Fluticasone Propionate (Flovent Hfa) 110 MCG/ACTUATION AER.W.ADAP 2 PUF INH BID RESP. (Reported) Furosemide (Lasix) 20 MG TABLET 1 TAB PO DAILY DIURETIC (Reported) Guaifenesin (Mucinex) (Unknown Strength) TAB.ER.12H (Unknown Dose) PO BID MUCUS (Reported) Lactobacillus Acidophilus (Acidophilus) 1 EACH CAPSULE 1 CAP PO BID PROBIOTIC (Reported) Magnesium Hydroxide (Milk Of Magnesia) 400 MG/5 ML ORAL.SUSP 5 ML PO BID PRN CONSTIPATION (Reported) Melatonin (Unknown Strength) TABLET (Unknown Dose) PO AD SUPPLEMENT (Reported ) Na Phos,M-B/Na Phos,Di-Ba (Fleet Enema) 19 GRAM-7 GRAM/118 ML ENEMA 1 E RC ONCE PRN CONSTIPATION (Reported) Ondansetron HCl (Zofran) 4 MG TABLET 1 TAB PO Q8H PRN NAUSEA (Reported) Polyethylene Glycol 3350 (Miralax) 17 GRAM POWD.PACK 1 PAC PO DAILY constipation (Reported) dissolve in water Roflumilast (Daliresp) 500 MCG TABLET 1 TAB PO DAILY RESP. (Reported) Sennosides (Senna) (Unknown Strength) TABLET (Unknown Dose) PO AD GI ( Reported) Tiotropium [place] (Spiriva) 18 MCG CAP.W.DEV 1 CAP INH DAILY RESP. (Reported ) Review of Systems Review of Systems Constitutional: Reports: see HPI. Past History Travel History Traveled to [place] past 21 day No Medical History Neurological: NONE EENT: NONE Cardiovascular: hypertension, MILD TRICUSPID REGURGITAT TION PAROXYSMAL SVT MITRAL VALVE REGURG Respiratory: severe, oxygen dependent COPD, bilateral cylindrical bronchiectasis , recurrent pseudomonas pneumonia, chronic interstitial lung disease, left upper lobe lung nodule CHRONIC RESP FAILURE WITH HYPOXIA & HYPERCARBIA PULMONARY HTN Gastrointestinal: NONE Hepatic: NONE Renal: NONE Musculoskeletal: ARTHRITIS OSTEOPOROSIS Psychiatric: NONE Endocrine: HYPONATREMIA R/T SIADH Blood Disorders: NONE Cancer(s): NONE 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 Surgical History Surgical History: none Family History Relations & Conditions If Any: MOTHER FH: heart disease SISTER FH: diabetes mellitus Relation not specified for: Family history unknown Psychosocial History Services at Home: Oxygen Smoking Status: Never Smoked ETOH Use: denies use Illicit Drug Use: denies illicit drug use Functional Ability Ambulation: independent, walker Exam & Diagnostic Data Last 24 Hrs of Vital Signs/I&O Vital Signs Date Time Temp Pulse Resp B/P B/P Pulse O2 O2 Flow FiO2 Mean Ox Delivery Rate 09/28 1517 98.0 82 22 131/72 96 Nasal 2.0L Cannula 09/28 1214 91 Nasal 2.0L Cannula 09/28 1145 97.9 91 25 170/74 99 Aerosol 10L Mask Intake & Output 09/28 1600 09/28 0800 09/28 0000 Intake Total 0 Output Total 400 Balance -400 Intake, Oral 0 Output, Urine 400 Patient 115 lb Weight Weight Estimated Measurement Method Last 48 Hrs of Labs/Seth: Laboratory Tests 09/28/17 1204: Urine Color YEL, Urine Clarity CLEAR, Urine pH 6.0, Ur Specific [place] 1.010, Urine Protein NEG, Urine Ketones NEG, Urine Nitrite NEG, Urine Bilirubin NEG, Urine Urobilinogen 0.2, Ur Leukocyte Esterase NEG, Ur Microscopic EXAM NOT REQUIRED, Urine Hemoglobin NEG, Urine Glucose NEG 09/28/17 1150: Anion Gap 8, Estimated GFR > 60, BUN/Creatinine Ratio 35.0 H, Glucose 128 H, Calcium 9.7, Magnesium 1.9, Total Bilirubin 0.6, AST 23, ALT 25, Alkaline Phosphatase 92, Troponin I < 0.01, Vnt-N-Hhrdthfnjeu Pept 88.0, Total Protein 7.4, Albumin 4.2, Globulin 3.2, Albumin/Globulin Ratio 1.3, D-Dimer High Sensitivty < 200, CBC w Diff MAN DIFF ORDERED, RBC 4.02 L, MCV 86.5, MCH 28.5, RDW 13.9, MPV 7.8, Gran % 85.8 H, Lymphocytes % 10.6 L, Monocytes % 3.3, Eosinophils % 0, Basophils % 0.3, Absolute Granulocytes 10.3 H, Absolute Lymphocytes 1.3, Absolute Monocytes 0.4, Absolute Eosinophils 0, Absolute Basophils 0, Platelet Estimate ADEQUATE, Hypochromic-Microcytic 1+, Anisocytosis 1+, PUBS MCHC 32.9 L Assessment/Plan Impression/Plan: General Appearance Alert, Oriented X3, Cooperative, No Acute Distress Skin No Rashes, No Breakdown, No Significant Lesion Skin Temp/Moisture Exam: Warm/Dry Sepsis Skin Exam (color): Normal for Ethnicity HEENT Atraumatic, PERRLA Neck Supple, No JVD Cardiovascular Regular Rate, arrythmia on EKG but not auscultated Lungs Diminished breath sounds b/l lung, with some rhonchi but no wheeze. Abdomen Normal Bowel Sounds, Soft, No Tenderness Neurological Normal Speech, Strength at 5/5 X4 Ext Extremities No Edema, Normal Pulses IMPRESSION This is a lady with very advanced end-stage lung disease with COPD and bilateral bronchiectasis with chronic Pseudomonas colonization, on maximum medical therapy now comes in with * REcent worsening of bronchiectasis with pseudomonas with acute exacerbation not responding to ceftaz at [facility] (s/p one week of rx) * Severe lung disease with end-stage COPD and bilateral severe bronchiectasis related to previous infections with Pseudomonas colonization with recurrent infection now with acute infection suggestive of Pseudomonas infection. 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 * REcent diarrhea rule out cdiff RECOMMENDATION * Change abx to meropenam as her previous bacteria has been resistant to ceftaz and she has failed recent ceftaz rx * 50 mg prednisone and rapid taper to 5 mg * Resume her outpatient azithromycin for prevention of Pseudomonas infections upon dc * Aggressive bowel regimen * Increase her calorie intake if pt able * Chest pt bid daily. No need for Mucomyst * keep potassium more than 4 * Stool for cdiff * Sputum culture Patient wishes to be DNR/DNI does not want to go to intensive care does not wish any other life-support she would like to continue her current therapy for now. Consult Acknowledgment - Thank you for your consult request.
[2017-09-28 17:05] VITALS: BP 140/60
[2017-09-28] MEDS ORDERED: PREDNISONE10 M2 PO (18:00)
[2017-09-28] MEDS ORDERED: LORAZEPAM0.5 M1 PO (19:29)
[2017-09-28 22:29] VITALS: BP 119/50
[2017-09-29 07:31] VITALS: BP 138/75
--- NOTE | 2017-09-29 07:38 | PN- Housestaff ---
See Addendum Subjective Follow-up For: #COPD exacerbation w/ End-stage COPD #Recurrent Pseudomonas Infection w/ Bronchoatelectasis #Chronic med conditions including Hypertension, arrythmia, SIADH w/ chronnic hyponatremia Subjective: - No overnight events. Patient had no specific complaint, breathing comfortably under 2LNC, eating her breakfast. - Patient denied fever/CP/palpitation/Ab pain/Leg swelling currently. - Patient was continued on prescribed diet regimen without specific intolerance/ request. - Patient denied any urinary or bowel movement discomforts. She had loose stool though. - Patient had no other specific complaint. Review of Systems Constitutional: Reports: see HPI. Objective Last 24 Hrs of Vital Signs/I&O Vital Signs Date Time Temp Pulse Resp B/P B/P Pulse O2 O2 Flow FiO2 Mean Ox Delivery Rate 09/29 0000 Nasal 2.0L Cannula 09/28 2229 98.4 89 18 119/50 98 Room Air 09/28 2225 Nasal 3.0L Cannula 09/28 1705 Nasal 2.0L Cannula 09/28 1705 98.8 99 22 140/60 92 Nasal 2.0L Cannula 09/28 1635 97.9 85 18 133/61 93 Nasal 2.0L Cannula 09/28 1517 98.0 82 22 131/72 96 Nasal 2.0L Cannula 09/28 1214 91 Nasal 2.0L Cannula 09/28 1145 97.9 91 25 170/74 99 Aerosol 10L Mask Intake & Output 09/29 0800 09/29 0000 09/28 1600 Intake Total 490 0 Output Total 400 400 Balance 490 -400 -400 Intake, IV 10 Intake, Oral 480 0 Number 0 2 Bowel Movements Output, Urine 400 400 Patient 47.174 kg 52.163 kg Weight Weight Estimated Measurement Method Physical Exam General Appearance: Alert, Oriented X3, Cooperative, No Acute Distress Cardiovascular: Regular Rate Lungs: Normal Air Movement, diminished air entry w/ bilateral rhonchi Abdomen: Normal Bowel Sounds, Soft, No Tenderness Neurological: Normal Speech Extremities: No Edema, Normal Pulses Current Medications: Current Medications Sig/Jabier Start time Last Medication Dose Route Stop Time Status Admin Acetaminophen 650 MG Q4P PRN 09/28 2045 AC 09/28 PO 2104 Albuterol Sulfate 3 ML EVERY 4 HRS/AWAKE 09/29 0800 AC 09/29 INH 0859 Albuterol Sulfate 3 ML Q6P PRN 09/28 1600 AC INH Ascorbic Acid 250 MG DAILY 09/29 1000 AC 09/29 PO 1030 Azithromycin 500 MG Q48H 09/29 1000 AC 09/29 PO 1029 Bisacodyl 10 MG DAILY PRN 09/28 1715 AC [place] Ceftazidime 1,000 MG Q8 09/28 2200 CAN IV Ceftazidime 0 .STK-MED ONE 09/28 1438 DC .ROUTE Ceftazidime 1,000 MG ONCE ONE 09/28 1400 DC 09/28 IV 09/28 1401 1536 Diltiazem HCl 180 MG DAILY 09/29 1000 AC 09/29 PO 1029 Enoxaparin Sodium 40 MG DAILY 09/29 1000 AC 09/29 SC 1030 Fluticasone 2 PUF BID 09/28 1559 AC 09/29 Propionate INH 1054 Furosemide 20 MG DAILY 09/29 1000 AC 09/29 PO 1029 Guaifenesin 600 MG Q12 09/28 2200 AC 09/29 PO 1029 Lactobacillus 1 CAP DAILY 09/28 1703 AC 09/29 Acidophilus PO 1030 Meropenem 1 GM IQ8 09/29 0000 AC 09/29 IV 1029 Methylprednisolone 40 MG Q12 09/28 1537 DC 09/28 IV 1601 Polyethylene Glycol 17 GM DAILY PRN 09/28 1715 AC PO Prednisone 50 MG DAILY 09/28 1705 AC 09/29 PO 1029 Roflumilast 500 MCG DAILY 09/29 1000 AC 09/29 PO 1030 Senna/Docusate Sodium 1 TAB BID PRN 09/28 1715 AC PO Tiotropium [place] 1 PUF DAILY 09/28 1603 AC 09/29 INH 1054 Last 24 Hrs of Lab/Seth Results Last 24 Hrs of Labs/Mics: Laboratory Tests 09/29/17 1025: Sodium Pending, Potassium Pending, Chloride Pending, Carbon Dioxide Pending, Anion Gap Pending, BUN Pending, Creatinine Pending, BUN/Creatinine Ratio Pending 09/29/17 0655: CBC w Diff Pending, WBC Pending, RBC Pending, Hgb Pending, Hct Pending, MCV Pending, MCH Pending, RDW Pending, Plt Count Pending, MPV Pending, Gran % Pending, Lymphocytes % Pending, Monocytes % Pending, Eosinophils % Pending, Basophils % Pending, Absolute Granulocytes Pending, Absolute Lymphocytes Pending , Absolute Monocytes Pending, Absolute Eosinophils Pending, Absolute Basophils Pending, PUBS MCHC Pending 09/28/17 1204: Urine Color YEL, Urine Clarity CLEAR, Urine pH 6.0, Ur Specific [place] 1.010, Urine Protein NEG, Urine Ketones NEG, Urine Nitrite NEG, Urine Bilirubin NEG, Urine Urobilinogen 0.2, Ur Leukocyte Esterase NEG, Ur Microscopic EXAM NOT REQUIRED, Urine Hemoglobin NEG, Urine Glucose NEG 09/28/17 1150: Anion Gap 8, Estimated GFR > 60, BUN/Creatinine Ratio 35.0 H, Glucose 128 H, Calcium 9.7, Magnesium 1.9, Total Bilirubin 0.6, AST 23, ALT 25, Alkaline Phosphatase 92, Troponin I < 0.01, Xlj-J-Yzfjcewexka Pept 88.0, Total Protein 7.4, Albumin 4.2, Globulin 3.2, Albumin/Globulin Ratio 1.3, D-Dimer High Sensitivty < 200, CBC w Diff MAN DIFF ORDERED, RBC 4.02 L, MCV 86.5, MCH 28.5, RDW 13.9, MPV 7.8, Gran % 85.8 H, Lymphocytes % 10.6 L, Monocytes % 3.3, Eosinophils % 0, Basophils % 0.3, Absolute Granulocytes 10.3 H, Absolute Lymphocytes 1.3, Absolute Monocytes 0.4, Absolute Eosinophils 0, Absolute Basophils 0, Platelet Estimate ADEQUATE, Hypochromic-Microcytic 1+, Anisocytosis 1+, PUBS MCHC 32.9 L Microbiology 09/28 2115 STOOL: Clostridium difficile Toxin A & B - RECD 09/28 1530 BLOOD: Blood Culture - WKST 09/28 1449 BLOOD: Blood Culture - WKST 09/28 1351 LOWER RESP: Respiratory Culture - COLB 09/28 1351 LOWER RESP: Gram Stain - COLB 09/28 1351 STOOL: Clostridium difficile Toxin A & B - CAN Cancelled: DUPLICATED Assessment/Plan Assessment: Mr. 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 Gonzalez for evaluation of shortness of breath for 3-4 days, with productive cough and no improvement with home meds including steroid/inhaler/musinex. 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 Patient's ROS otherwise negative. Patient's clinical picture presented with COPD exacerbation despite being chronic retainer of CO2 based on ABG history. Patient 's CBC showed leukocytosis despite afebrile w/o sepsis, CXR showed unclear findings of pneumonia/atelectasis, despite previous history of recurrent pseudomonas infection w/ bronchoatelectasis, however still warrants IV Abx treatment in this admission. Problem list & Plan #COPD exacerbation w/ End-stage COPD #Recurrent Pseudomonas Infection w/ Bronchoatelectasis #Chronic med conditions including Hypertension, arrythmia, SIADH w/ chronnic hyponatremia - Continue 2LNC, TRC/Neb as needed, Chest PT bid - Pulm recommended to switched to Meropenam 1g q8 for Pseudomonas coverage due to hx of Ceftaz resistant, Tapered to PO prednisone 40mg qd, and rapid taper to 5mg. - Resume Azithromycin 250mg QOD upon discharge, and stop Roflumilast upon DC - Continue home med Roflumilast 500mcg qd. - Continue home meds including Lasix 20mg qd, diltiazem 240mg ER qd - Confirmed meds w/ [facility]. Patient was on Prednisone 10mg qd and Diltiazem 240mg qd prior this admission. - CBC/BEP in the AM - Pending culture results DVT prophylaxis Lovenox + ALPS Regular Diet DNR/DNI Problem List: 1. COPD (chronic obstructive pulmonary disease) 2. Cough productive of purulent sputum 3. Pneumonia Pain Ratin Pain Location: NA Pain Goal: Remain pain free Pain Plan: NA Tomorrow's Labs & Rationales: CBC
[2017-09-29 09:45] LABS: ABSOLUTE BASOPHIL COUNT 0 /CUMM (0.0-0.2); ABSOLUTE EOSINOPHIL COUNT 0 /CUMM (0.0-0.7); ABSOLUTE GRANULOCYTE CT 6.7 /CUMM (1.4-6.5); ABSOLUTE LYMPH COUNT 0.6 /CUMM (1.2-3.4); ABSOLUTE MONOCYTE COUNT 0.3 /CUMM (0.10-0.60); BASOPHIL % 0 % (0.0-2.0); EOSINOPHIL % 0 % (0-5); HEMATOCRIT 33.9 % (37-47); MEAN CORPUSCULAR HGB 28.2 PG (27.0-31.0); MEAN CORPUSCULAR HGB CONC 32.7 G/DL (33.0-37.0); MEAN CORPUSCULAR VOLUME 86.5 FL (81.0-99.0); MEAN PLATELET VOLUME 8.7 FL (7.4-10.4); PLATELET COUNT 217 /CUMM (130-400); RED BLOOD CELL CT 3.92 /CUMM (4.20-5.40); WHITE BLOOD CELL COUNT 7.6 /CUMM (4.8-10.8)
--- NOTE | 2017-09-29 10:36 | PN- Pulmonary ---
Subjective HPI/Critical Care Issues: Doing ok Diarrhea persists Cdiff pending Objective Current Medications: Current Medications Sig/Jabier Start time Last Medication Dose Route Stop Time Status Admin Acetaminophen 650 MG Q4P PRN 09/28 2045 AC 09/28 PO 2104 Albuterol Sulfate 3 ML EVERY 4 HRS/AWAKE 09/29 0800 AC 09/29 INH 0859 Albuterol Sulfate 3 ML Q6P PRN 09/28 1600 AC INH Ascorbic Acid 250 MG DAILY 09/29 1000 AC PO Azithromycin 500 MG Q48H 09/29 1000 AC PO Bisacodyl 10 MG DAILY PRN 09/28 1715 AC NV Ceftazidime 1,000 MG Q8 09/28 2200 CAN IV Ceftazidime 0 .STK-MED ONE 09/28 1438 DC .ROUTE Ceftazidime 1,000 MG ONCE ONE 09/28 1400 DC 09/28 IV 09/28 1401 1536 Diltiazem HCl 180 MG DAILY 09/29 1000 AC PO Enoxaparin Sodium 40 MG DAILY 09/29 1000 AC SC Fluticasone 2 PUF BID 09/28 1559 AC 09/28 Propionate INH 2104 Furosemide 20 MG DAILY 09/29 1000 AC PO Guaifenesin 600 MG Q12 09/28 2200 AC 09/28 PO 2104 Lactobacillus 1 CAP DAILY 09/28 1703 AC 09/28 Acidophilus PO 1909 Meropenem 1 GM IQ8 09/29 0000 AC 09/29 IV 0034 Methylprednisolone 40 MG Q12 09/28 1537 DC 09/28 IV 1601 Polyethylene Glycol 17 GM DAILY PRN 09/28 1715 AC PO Prednisone 50 MG DAILY 09/28 1705 AC 09/28 PO 1909 Roflumilast 500 MCG DAILY 09/29 1000 AC PO Senna/Docusate Sodium 1 TAB BID PRN 09/28 1715 AC PO Tiotropium [place] 1 PUF DAILY 09/28 1603 AC 09/28 INH 1645 Vital Signs & I&O Last 24 Hrs of Vitals and I&O: Vital Signs Date Time Temp Pulse Resp B/P B/P Pulse O2 O2 Flow FiO2 Mean Ox Delivery Rate 09/29 0900 97 Nasal 2.0L Cannula 09/29 0731 98.5 91 20 138/75 98 Nasal 2.5L Cannula 09/29 0000 Nasal 2.0L Cannula 09/289 98.4 89 18 119/50 98 Room Air 09/28 2225 Nasal 3.0L Cannula 09/28 1705 Nasal 2.0L Cannula 09/28 1705 98.8 99 22 140/60 92 Nasal 2.0L Cannula 09/28 1635 97.9 85 18 133/61 93 Nasal 2.0L Cannula 09/28 1517 98.0 82 22 131/72 96 Nasal 2.0L Cannula 09/28 1214 91 Nasal 2.0L Cannula 09/28 1145 97.9 91 25 170/74 99 Aerosol 10L Mask Intake & Output 09/29 1600 09/29 0800 09/29 0000 Intake Total 490 Output Total 400 Balance 490 -400 Intake, IV 10 Intake, Oral 480 Number 0 2 Bowel Movements Output, Urine 400 Patient 104 lb Weight Laboratory Tests 09/29 09/29 09/28 1025 0655 1204 Chemistry Sodium Pending Potassium Pending Chloride Pending Carbon Dioxide Pending Anion Gap Pending BUN Pending Creatinine Pending BUN/Creatinine Ratio Pending Hematology CBC w Diff Pending WBC Pending RBC Pending Hgb Pending Hct Pending MCV Pending MCH Pending RDW Pending Plt Count Pending MPV Pending Gran % Pending Lymphocytes % Pending Monocytes % Pending Eosinophils % Pending Basophils % Pending Absolute Granulocytes Pending Absolute Lymphocytes Pending Absolute Monocytes Pending Absolute Eosinophils Pending Absolute Basophils Pending PUBS MCHC Pending Urines Urine Color (YEL,AMB,STR) YEL Urine Clarity (CLEAR) CLEAR Urine pH (5.0 - 8.0) 6.0 Ur Specific [place] (1.001 - 1.035) 1.010 Urine Protein (NEG,<30 MG/DL) NEG Urine Ketones (NEG) NEG Urine Nitrite (NEG) NEG Urine Bilirubin (NEG) NEG Urine Urobilinogen (0.1 - 1.0 EU/dl) 0.2 Ur Leukocyte Esterase (NEG) NEG Ur Microscopic EXAM NOT REQUIRED Urine Hemoglobin (NEG) NEG Urine Glucose (N MG/DL) NEG 09/28 1150 Chemistry Sodium (137 - 145 mmol/L) 139 Potassium (3.5 - 5.1 mmol/L) 4.1 Chloride (98 - 107 mmol/L) 98 Carbon Dioxide (22 - 30 mmol/L) 33 H Anion Gap (5 - 16) 8 BUN (7 - 17 mg/dL) 14 Creatinine (0.5 - 1.0 mg/dL) 0.4 L Estimated GFR (>60 ml/min) > 60 BUN/Creatinine Ratio (7 - 25 %) 35.0 H Glucose (65 - 99 mg/dL) 128 H Calcium (8.4 - 10.2 mg/dL) 9.7 Magnesium (1.6 - 2.3 mg/dL) 1.9 Total Bilirubin (0.2 - 1.3 mg/dL) 0.6 AST (14 - 36 U/L) 23 ALT (9 - 52 U/L) 25 Alkaline Phosphatase (<127 U/L) 92 Troponin I (< 0.11 ng/ml) < 0.01 Xgv-R-Ynyyosiamiv Pept (<125 pg/mL) 88.0 Total Protein (6.3 - 8.2 g/dL) 7.4 Albumin (3.5 - 5.0 g/dL) 4.2 Globulin (1.9 - 4.2 gm/dL) 3.2 Albumin/Globulin Ratio (1.1 - 2.2 %) 1.3 Coagulation D-Dimer High Sensitivty (0 - 243 ng/ml) < 200 Hematology CBC w Diff MAN DIFF ORDERED WBC (4.8 - 10.8 /CUMM) 11.9 H RBC (4.20 - 5.40 /CUMM) 4.02 L Hgb (12.0 - 16.0 G/DL) 11.4 L Hct (37 - 47 %) 34.8 L MCV (81.0 - 99.0 FL) 86.5 MCH (27.0 - 31.0 PG) 28.5 RDW (11.5 - 14.5 %) 13.9 Plt Count (130 - 400 /CUMM) 234 MPV (7.4 - 10.4 FL) 7.8 Gran % (42.2 - 75.2 %) 85.8 H Lymphocytes % (20.5 - 51.1 %) 10.6 L Monocytes % (1.7 - 9.3 %) 3.3 Eosinophils % (0 - 5 %) 0 Basophils % (0.0 - 2.0 %) 0.3 Absolute Granulocytes (1.4 - 6.5 /CUMM) 10.3 H Absolute Lymphocytes (1.2 - 3.4 /CUMM) 1.3 Absolute Monocytes (0.10 - 0.60 /CUMM) 0.4 Absolute Eosinophils (0.0 - 0.7 /CUMM) 0 Absolute Basophils (0.0 - 0.2 /CUMM) 0 Platelet Estimate (ADEQUATE) ADEQUATE Hypochromic-Microcytic 1+ Anisocytosis 1+ PUBS MCHC (33.0 - 37.0 G/DL) 32.9 L Microbiology Date/Time Procedure - Status Source Growth 09/28 2115 Clostridium difficile Toxin A & B - RECD STOOL 09/28 1530 Blood Culture - WKST BLOOD 09/28 1449 Blood Culture - WKST BLOOD 09/28 1351 Respiratory Culture - COLB LOWER RESP 09/28 1351 Gram Stain - COLB LOWER RESP 09/28 1351 Clostridium difficile Toxin A & B - CAN STOOL Cancelled: DUPLICATED Impression/Plan Impression/Plan Impression/Plan: General Appearance Alert, Oriented X3, Cooperative, No Acute Distress Skin No Rashes, No Breakdown, No Significant Lesion Skin Temp/Moisture Exam: Warm/Dry Sepsis Skin Exam (color): Normal for Ethnicity HEENT Atraumatic, PERRLA Neck Supple, No JVD Cardiovascular Regular Rate, arrythmia on EKG but not auscultated Lungs Diminished breath sounds b/l lung, with some rhonchi but no wheeze. 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 * REcent diarrhea rule out cdiff RECOMMENDATION * Cont meropenam and await sputum culture and cdiff * 40 in am and rapid taper to 5 mg * Resume her outpatient azithromycin 250 mg po qod for prevention of Pseudomonas infections upon dc * Increase her calorie intake if pt able * Chest pt bid daily. No need for Mucomyst, ask resp to do this * keep potassium more than 4 * Stool for cdiff * Sputum culture Patient wishes to be DNR/DNI does not want to go to intensive care does not wish any other life-support she would like to continue her current therapy for now.
[2017-09-29 11:37] LABS: GRANULOCYTE % 88.4 % (42.2-75.2)
[2017-09-29 14:22] VITALS: BP 122/60
--- NOTE | 2017-09-29 16:19 | Patient Discharge Instructions ---
Discharge Instructions General Discharge Information You were seen/treated for: #COPD exacerbation w/ End-stage COPD #Recurrent Pseudomonas Infection w/ Bronchoatelectasis #Chronic med conditions including Hypertension, arrythmia, SIADH w/ chronnic hyponatremia Special Instructions: - Please continue taking Ciprofloxacin for 8 days to complete the treatment course. - Please continue taking Prednisone 5mg daily. - Please follow up with Dr. Gonzalez within 1-2 week of discharge. - Please follow up with your primary care physician within 1-2 week of discharge. Inform your primary care physician of this admission to [facility]. - Continue your current medications per discharge instructions. - Please watch for these problems: Fever, Chills, Nausea, Vomiting, Shortness of Breath, Productive Cough, Chest Pain/Discomfort, Abdominal Pain, Active Bleeding or Bloody urine/stool. Diet Continue normal diet: Yes Activity Full Activity/No Limits: Yes Acute Coronary Syndrome Inclusion Criteria At DC or during hospital stay patient has or had the following: ACS DIAGNOSIS No Discharge Core Measures Meds if any: Prescribed or Continued at Discharge Meds if any: NOT Prescribed or Continued at Discharge Congestive Heart Failure Inclusion Criteria At DC or during hospital stay patient has or had the following: CHF DIAGNOSIS No Discharge Core Measures Meds if any: Prescribed or Continued at Discharge Meds if any: NOT Prescribed or Continued at Discharge Cerebrovascular accident Inclusion Criteria At DC or during hospital stay patient has or had the following: CVA/TIA Diagnosis No Discharge Core Measures Meds if any: Prescribed or Continued at Discharge Meds if any: NOT Prescribed or Continued at Discharge Venous thromboembolism Inclusion Criteria VTE Diagnosis No VTE Type NONE VTE Confirmed by (Test) NONE Discharge Core Measures - Per Current guidelines, there needs to be overlap - treatment for the first 5 days of Warfarin therapy. - If discharged on Warfarin prior to 5 days of - overlap therapy, the patient will need to be - assessed for post discharge needs including - *Post discharge parental anticoagulation - *Warfarin and/or parental anticoagulation education - *Follow up date to check INR post discharge At least 5 days overlap therapy as Inpatient No Meds if any: Prescribed or Continued at Discharge Note: Overlap Therapy is Warfarin and Anticoagulant Meds if any: NOT Prescribed or Continued at Discharge
--- NOTE | 2017-09-29 16:23 | Discharge Summary ---
See Addendum Visit Information Visit Dates Admission Date: 09/28/17 Discharge Date: 10/04/2017 Hospital Course Course Attending Physician: Mansi ABDI,Jennifer Anderson Primary Care Physician: Germain ABDI,[facility] Hospital Course: Mr. 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 Gonzalez for evaluation of shortness of breath for 3-4 days, with productive cough and no improvement with home meds including steroid/inhaler/musinex. 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 Patient's ROS otherwise negative. Patient's clinical picture presented with COPD exacerbation despite being chronic retainer of CO2 based on ABG history. Patient 's CBC showed leukocytosis despite afebrile w/o sepsis, CXR showed unclear findings of pneumonia/atelectasis, despite previous history of recurrent pseudomonas infection w/ bronchoatelectasis, however still warrants IV Abx treatment in this admission. ER course: Objective Vitals:VSS afebrile satting >90% on 2LNC Physical exam -Gen.: AO x3, cooperative, no distress, -HEENT: NCAT, PERRL, moist mucous membranes -Neck: Supple, no JVD, trachea midline, mild accessory respiratory muscle use -Cardio: Normal S1/S2 without significant murmurs/gallops/rubs -Pulmonary: grossly normal air movement w/ diminished air entry b/l lung, no wheeze -Abdomen: Soft, nontender, nondistended, bowel sounds intact -Neuro: Awake and alert -Extremity: Normal pulses/capillary refill, no cyanosis/clubbing/edema Labs/imaging/EKG/interventions -CBC: WBC 11.9, H/H 11.4/34/8, Gran >80%, no bandemia -BMP: WNL, Glucose 128, Trop -ve -CXR: Limited study. Right base opacity. Pneumonia or atelectasis may be present. -EKG: sinus arrythmia without significant ST-T abnormalities. -Interventions in ER: Ceftaz 1g x 1 Problem list & Hospital Course #COPD exacerbation w/ End-stage COPD Upon admission, patient was placed on 2LNC, TRC/Nebulizer, and IV solumedrol 40mg twice daily for respiratory stress. Pulmonology recommended rapid tapering of prednisone. Patient was then placed on oral prednisone and continued the tapering course during hospital stay. Upon discharge, patient had no wheezing on bilateral lung auscultation, and was advised to continue prednisone tapering and follow up with Dr. Gonzalez. Patient was continued on home meds of Roflumilast during hospital stay, and was discharged with advise to hold Roflumilast at SNF. Patient was advised to continue on Prednisone 5mg daily for chronic steroid dose for her COPD. #Recurrent Pseudomonas Infection w/ Bronchoatelectasis Prior this admission, patient had a history of Ceftaz-resistant Pseudomonas culture, and outpatient ceftaz treatment did not yield clinical improvement. Patient was switched to Meropenam in addition to Azithromycin for broad coverage. Sputum sampel later revealed Pseudomonas sensitive to Ceftaz and Ciprofloxacin. Patient was continued on Meropenam for a total of 6 days prior discharge, and continued on oral ciprofloxacin for 8 days for a total of 14 days of full treatment course. #Chronic med conditions including Hypertension, arrythmia, SIADH w/ chronnic hyponatremia Patient was continued on home medications including Lasix 20mg daily, diltiazem 180mg ER daily. No hyponatremia was observed during this hospital stay. DVT prophylaxis Lovenox + ALPS Regular Diet DNR/DNI Allergies: Coded Allergies: Penicillins (UNKNOWN 09/28/17) Pertinent Lab Results: SERVICE DATE: 09/28/17 EXAM TYPE: RAD - XRY-PORTABLE CHEST XRAY IMPRESSION: Limited study. Right base opacity. Pneumonia or atelectasis may be present. This represents an interval worsening since 11/01/16 Disposition Summary Disposition Principal Diagnosis: #COPD exacerbation w/ End-stage COPD #Recurrent Pseudomonas Infection w/ Bronchoatelectasis #Chronic med conditions including Hypertension, arrythmia, SIADH w/ chronnic hyponatremia Additional Diagnosis: As Above Discharge Disposition: SNF Discharge Instructions General Discharge Information Code Status: Do Not Resucitate/Intubat Patient's Diet: Regular Diet Patient's Activity: As tolerated Follow-Up Instructions/Appts: - Please continue taking Ciprofloxacin for 8 days to complete the treatment course. - Please continue taking Prednisone 5mg daily. - Please follow up with Dr. Gonzalez within 1-2 week of discharge. - Please follow up with your primary care physician within 1-2 week of discharge. Inform your primary care physician of this admission to [facility]. - Continue your current medications per discharge instructions. - Please watch for these problems: Fever, Chills, Nausea, Vomiting, Shortness of Breath, Productive Cough, Chest Pain/Discomfort, Abdominal Pain, Active Bleeding or Bloody urine/stool. Medications at Discharge Discharge Medications: Stop taking the following medications: Roflumilast (Daliresp) 500 MCG TABLET ORAL DAILY Fluticasone Propionate (Flovent Hfa) 110 MCG/ACTUATION AER.W.ADAP Inhale through mouth TWICE DAILY Continue taking these medications: Fluticasone Propionate (Flovent Hfa) 110 MCG/ACTUATION AER.W.ADAP 2 Puff Inhale through mouth TWICE DAILY Comments: Last Taken:10/04/17 Time:8:40 AM Lactobacillus Acidophilus (Acidophilus) 1 EACH CAPSULE 1 Capsule ORAL TWICE DAILY Comments: Last Taken:10/04/17 Time:8:40 AM Tiotropium [place] (Spiriva) 18 MCG CAP.W.DEV 1 Capsule Inhale through mouth DAILY Comments: Last Taken:10/04/17 Time:8:40 AM Guaifenesin (Mucinex) (Unknown Strength) TAB.ER.12H Unknown Dose ORAL TWICE DAILY Comments: Last Taken:10/04/17 Time:8:40 AM Chlorhexidine Gluconate (Periogard) 0.12 % MOUTHWASH 15 Milliliters ORAL TWICE DAILY Comments: NOT GIVEN IN HOSPITAL Azithromycin (Azithromycin) 250 MG TABLET 1 Tablet ORAL ///TUE Instructions: 2 the first day followed by 1 for days 2-5 Comments: Last Taken:10/03/17 Time:10:50 AM Tuesday, Tuesday, , Tuesday Diltiazem HCl (Cardizem Cd) 240 MG CAP.ER.24H 1 Capsule ORAL DAILY Comments: Last Taken:10/04/17 Time:8:30 AM Polyethylene Glycol 3350 (Miralax) 17 GRAM POWD.PACK 1 Packet ORAL DAILY Instructions: dissolve in water Comments: NOT GIVEN IN HOSPITAL Ascorbic Acid (Vitamin C) 250 MG TABLET 1 Tablet ORAL DAILY Days = 28 Comments: Last Taken:10/04/17 Time:8:30 AM Bisacodyl (Bisacodyl) 10 MG SUPP.RECT 1 Suppository RECTAL DAILY as needed for CONSTIPATION Qty = 12 Comments: NOT GIVEN IN HOSPITAL Magnesium Hydroxide (Milk Of Magnesia) 400 MG/5 ML ORAL.SUSP 5 Milliliters ORAL TWICE DAILY as needed for CONSTIPATION Comments: NOT GIVEN IN HOSPITAL Na Phos,M-B/Na Phos,Di-Ba (Fleet Enema) 19 GRAM-7 GRAM/118 ML ENEMA 1 Enema RECTAL GIVE ONCE as needed for CONSTIPATION Comments: NOT GIVEN IN HOSPTIAL Albuterol Sulfate (Albuterol Sulfate) 2.5 MG/3 ML (0.083 %) VIAL.NEB 1 Vial Inhale Solution Q6H as needed for WHEEZING Cholecalciferol (Vitamin D3) (Vitamin D) 1,000 UNIT TABLET 1 Tablet ORAL DAILY Comments: NOT GIVEN IN HOSPITAL Furosemide (Lasix) 20 MG TABLET 1 Tablet ORAL DAILY Comments: Last Taken:10/04/17 Time:8:40 AM Melatonin (Melatonin) (Unknown Strength) TABLET Unknown Dose ORAL As Directed Comments: Last Taken:10/02/17 Time:10:30 PM Ondansetron HCl (Zofran) 4 MG TABLET 1 Tablet ORAL Q8H as needed for NAUSEA Comments: NOT GIVEN IN HOSPITAL Sennosides (Senna) (Unknown Strength) TABLET Unknown Dose ORAL As Directed Comments: NOT GIVEN IN HOSPITAL Prednisone (Prednisone) 10 MG TABLET 1 Tablet ORAL DAILY Comments: Last Taken:10/04/17 Time:8:40 AM Lorazepam (Lorazepam) 0.5 MG TABLET 1 Tablet ORAL EVERY SIX HOURS NEEDED as needed for Anxiety Comments: NOT GIVEN IN HOSPITAL Start taking the following new medications: Ciprofloxacin HCl (Ciprofloxacin HCl) 750 MG TABLET 1 Tablet ORAL TWICE DAILY Qty = 16 No Refills Prednisone (Prednisone) 5 MG TABLET 1 Tablet ORAL DAILY Qty = 30 No Refills Comments: Please start taking 5mg predisone (1 tablet) once daily after discharge Copies To: Germain ABDI,Marycarmen
[2017-09-29 22:01] VITALS: BP 128/62
[2017-09-30 07:31] VITALS: BP 126/58
[2017-09-30] MEDS ORDERED: PREDNISONE10 M2 PO (08:01)
--- NOTE | 2017-09-30 08:53 | PN- Housestaff ---
StephenJoann Hamilton Hackett 09/30/17 0850: Subjective Follow-up For: #COPD exacerbation w/ End-stage COPD #Recurrent Pseudomonas Infection w/ Bronchoatelectasis #Chronic med conditions including Hypertension, arrythmia, SIADH w/ chronnic hyponatremia Subjective: Patient was doing nebulizer treatment when I entered the room. Patient c/o of SOB while ambulating. However she said she was doing ok if just resting on bed. Review of Systems Constitutional: Reports: see HPI. Objective Last 24 Hrs of Vital Signs/I&O Vital Signs Date Time Temp Pulse Resp B/P B/P Pulse O2 O2 Flow FiO2 Mean Ox Delivery Rate 09/30 0731 98.3 76 18 126/58 98 09/30 0000 Nasal 2.0L Cannula 09/29 2212 Nasal 2.0L Cannula 09/29 2201 98.3 82 18 128/62 98 Nasal 3.0L Cannula 09/29 1422 98.0 106 20 122/60 97 Nasal 2.0L Cannula 09/29 0900 97 Nasal 2.0L Cannula Intake & Output 09/30 1600 09/30 0800 09/30 0000 Intake Total 100 210 Output Total 600 Balance 100 -390 Intake, IV 10 Intake, Oral 100 200 Output, Urine 600 Physical Exam General Appearance: Alert, Oriented X3, Cooperative, No Acute Distress Cardiovascular: Regular Rate Lungs: Diminished air entry bilateral without wheeze Abdomen: Normal Bowel Sounds, Soft, No Tenderness Neurological: Normal Speech Extremities: No Cyanosis, No Edema, Normal Pulses Current Medications: Current Medications Sig/Jabier Start time Last Medication Dose Route Stop Time Status Admin Acetaminophen 650 MG .STK-MED ONE 09/29 2302 DC PO 09/29 230 Acetaminophen 650 MG Q4P PRN 09/28 2045 AC 09/29 PO 2303 Albuterol Sulfate 3 ML EVERY 4 HRS/AWAKE 09/29 0800 AC 09/30 INH 0833 Albuterol Sulfate 3 ML Q6P PRN 09/28 1600 AC INH Ascorbic Acid 250 MG DAILY 09/29 1000 AC 09/29 PO 1030 Azithromycin 500 MG Q48H 09/29 1000 AC 09/29 PO 1029 Bisacodyl 10 MG DAILY PRN 09/28 1715 AC PA Diltiazem HCl 240 MG DAILY 09/30 1000 AC PO Diltiazem HCl 180 MG DAILY 09/29 1000 DC 09/29 PO 1029 Enoxaparin Sodium 40 MG DAILY 09/29 1000 AC 09/29 SC 1030 Fluticasone 2 PUF BID 09/28 1559 AC 09/29 Propionate INH 2114 Furosemide 20 MG DAILY 09/29 1000 AC 09/29 PO 1029 Guaifenesin 600 MG Q12 09/28 2200 AC 09/29 PO 2114 Lactobacillus 1 CAP DAILY 09/28 1703 AC 09/29 Acidophilus PO 1030 Meropenem 1 GM IQ8 09/29 0000 AC 09/30 IV 0029 Polyethylene Glycol 17 GM DAILY PRN 09/28 1715 AC PO Prednisone 40 MG DAILY 09/30 1000 AC PO Prednisone 50 MG DAILY 09/28 1705 DC 09/29 PO 1029 Roflumilast 500 MCG DAILY 09/29 1000 AC 09/29 PO 1030 Senna/Docusate Sodium 1 TAB BID PRN 09/28 1715 AC PO Tiotropium [place] 1 PUF DAILY 09/28 1603 AC 09/29 INH 1054 Last 24 Hrs of Lab/Seth Results Last 24 Hrs of Labs/Mics: Laboratory Tests 09/29/17 1025: Anion Gap 10, Estimated GFR > 60, BUN/Creatinine Ratio 30.0 H Microbiology 09/29 1917 LOWER RESP: Respiratory Culture - RES 09/29 1917 LOWER RESP: Gram Stain - RES Assessment/Plan Assessment: Mr. 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 Gonzalez for evaluation of shortness of breath for 3-4 days, with productive cough and no improvement with home meds including steroid/inhaler/musinex. 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 Patient's ROS otherwise negative. Patient's clinical picture presented with COPD exacerbation despite being chronic retainer of CO2 based on ABG history. Patient 's CBC showed leukocytosis despite afebrile w/o sepsis, CXR showed unclear findings of pneumonia/atelectasis, despite previous history of recurrent pseudomonas infection w/ bronchoatelectasis, however still warrants IV Abx treatment in this admission. Problem list & Plan #COPD exacerbation w/ End-stage COPD #Recurrent Pseudomonas Infection w/ Bronchoatelectasis #Chronic med conditions including Hypertension, arrythmia, SIADH w/ chronnic hyponatremia - On 3LNC now but will taper to 2LNC today, TRC/Neb as needed, Chest PT bid - Pulm recommended to switched to Meropenam 1g q8 for Pseudomonas coverage due to hx of Ceftaz resistant, Tapered to PO prednisone 40mg qd, and rapid taper to 5mg. - Pending sputum culture sensitivity of GND - Resume Azithromycin 250mg QOD upon discharge, and stop Roflumilast upon DC - Continue home med Roflumilast 500mcg qd. - Continue home meds including Lasix 20mg qd, diltiazem 240mg ER qd - Confirmed meds w/ [facility]. Patient was on Prednisone 10mg qd and Diltiazem 240mg qd prior this admission. - CBC/BEP in the AM DVT prophylaxis Lovenox + ALPS Regular Diet DNR/DNI Problem List: 1. COPD (chronic obstructive pulmonary disease) 2. Cough productive of purulent sputum Pain Ratin Pain Location: NA Pain Goal: Remain pain free Pain Plan: NA Tomorrow's Labs & Rationales: CBC/BEp Jennifer Nazario MD 09/30/17 1231: Attending MD Review Statement Attending Statement Attending MD Statement: examined this patient, discuss w/resident/PA/AUTOMATIC P[employer]CH [employer]ESS OPERATOR, agreed w/resident/PA/AUTOMATIC P[employer]CH PRESS OPERATOR, reviewed EMR data (avail), discussed with nursing, discussed with case mgmt, reviewed images Attending Assessment/Plan: Overall patient is doing okay. Still coughing but her O2 requirement is down to her usual. She is a 77-year-old with chronic respiratory failure here with acute hypoxemic respiratory failure with a gram-negative pneumonia presumed with underlying COPD and bronchiectasis. We have her on IV meropenem and will discuss with Dr. Gonzalez duration of antibiotics. We are tapering off the steroids and will follow closely.
--- NOTE | 2017-09-30 11:06 | PN- Pulmonary ---
Subjective HPI/Critical Care Issues: Sleeping early am stable Cdiff neg Objective Current Medications: Current Medications Sig/Jabier Start time Last Medication Dose Route Stop Time Status Admin Acetaminophen 650 MG .STK-MED ONE 09/29 2302 DC PO 09/29 2303 Acetaminophen 650 MG Q4P PRN 09/28 2045 AC 09/30 PO 1003 Albuterol Sulfate 3 ML EVERY 4 HRS/AWAKE 09/29 0800 AC 09/30 INH 0833 Albuterol Sulfate 3 ML Q6P PRN 09/28 1600 AC INH Ascorbic Acid 250 MG DAILY 09/29 1000 AC 09/30 PO 0951 Azithromycin 500 MG Q48H 09/29 1000 AC 09/29 PO 1029 Bisacodyl 10 MG DAILY PRN 09/28 1715 AC VT Diltiazem HCl 240 MG DAILY 09/30 1000 AC 09/30 PO 0950 Diltiazem HCl 180 MG DAILY 09/29 1000 DC 09/29 PO 1029 Enoxaparin Sodium 40 MG DAILY 09/29 1000 AC 09/30 SC 0950 Fluticasone 2 PUF BID 09/28 1559 AC 09/30 Propionate INH 0951 Furosemide 20 MG DAILY 09/29 1000 AC 09/30 PO 0950 Guaifenesin 600 MG Q12 09/28 2200 AC 09/30 PO 0951 Lactobacillus 1 CAP DAILY 09/28 1703 AC 09/30 Acidophilus PO 0951 Meropenem 1 GM IQ8 09/29 0000 AC 09/30 IV 0952 Polyethylene Glycol 17 GM DAILY PRN 09/28 1715 AC PO Prednisone 40 MG DAILY 09/30 1000 AC 09/30 PO 0951 Prednisone 50 MG DAILY 09/28 1705 DC 09/29 PO 1029 Roflumilast 500 MCG DAILY 09/29 1000 AC 09/30 PO 0950 Senna/Docusate Sodium 1 TAB BID PRN 09/28 1715 AC PO Tiotropium [place] 1 PUF DAILY 09/28 1603 AC 09/30 INH 0950 Vital Signs & I&O Last 24 Hrs of Vitals and I&O: Vital Signs Date Time Temp Pulse Resp B/P B/P Pulse O2 O2 Flow FiO2 Mean Ox Delivery Rate 09/30 0925 95 Nasal 3.0L Cannula 09/30 0731 98.3 76 18 126/58 98 09/30 0000 Nasal 2.0L Cannula 09/29 2212 Nasal 2.0L Cannula 12/28 2201 98.3 82 18 128/62 98 Nasal 3.0L Cannula 09/29 1422 98.0 106 20 122/60 97 Nasal 2.0L Cannula Intake & Output 09/30 1600 09/30 0800 09/30 0000 Intake Total 100 210 Output Total 600 Balance 100 -390 Intake, IV 10 Intake, Oral 100 200 Output, Urine 600 Impression/Plan Impression/Plan Impression/Plan: General Appearance Alert, Oriented X3, Cooperative, No Acute Distress Skin No Rashes, No Breakdown, No Significant Lesion Skin Temp/Moisture Exam: Warm/Dry Sepsis Skin Exam (color): Normal for Ethnicity HEENT Atraumatic, PERRLA Neck Supple, No JVD Cardiovascular Regular Rate, arrythmia on EKG but not auscultated Lungs Diminished breath sounds b/l lung, with some rhonchi but no wheeze. Abdomen Normal Bowel Sounds, Soft, No Tenderness Neurological Normal Speech, Strength at 5/5 X4 Ext Extremities No Edema, Normal Pulses IMPRESSION This is a lady with very advanced end-stage lung disease with COPD and bilateral bronchiectasis with chronic Pseudomonas colonization, on maximum medical therapy now comes in with * REcent worsening of bronchiectasis with pseudomonas with acute exacerbation not responding to ceftaz at [facility] (s/p one week of rx) * Severe lung disease with end-stage COPD and bilateral severe bronchiectasis related to previous infections with Pseudomonas colonization with recurrent infection now with acute infection suggestive of Pseudomonas infection. 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 * REcent diarrhea rule neg for cdiff RECOMMENDATION * Cont meropenam and await sputum culture * 40 prednison and rapid taper to 5 mg * Resume her outpatient azithromycin 250 mg po qod for prevention of Pseudomonas infections upon dc * Increase her calorie intake if pt able * Chest pt bid daily. No need for Mucomyst, ask resp to do this * keep potassium more than 4 Pt can receive iv abx at [facility] with a mid line and see if that is feasible, needs seven days of iv abx probaly for now Patient wishes to be DNR/DNI does not want to go to intensive care does not wish any other life-support she would like to continue her current therapy for now.
[2017-09-30 14:22] VITALS: BP 120/60
[2017-09-30] MEDS ORDERED: PREDNISONE5 M1 PO (15:32)
[2017-09-30 22:47] VITALS: BP 128/58
--- NOTE | 2017-10-01 05:41 | PN- Housestaff ---
Assessment/Plan Assessment: Mr. 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 Gonzalez for evaluation of shortness of breath for 3-4 days, with productive cough and no improvement with home meds including steroid/inhaler/musinex. 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 Patient's ROS otherwise negative. Patient's clinical picture presented with COPD exacerbation despite being chronic retainer of CO2 based on ABG history. Patient 's CBC showed leukocytosis despite afebrile w/o sepsis, CXR showed unclear findings of pneumonia/atelectasis, despite previous history of recurrent pseudomonas infection w/ bronchoatelectasis, however still warrants IV Abx treatment in this admission. Problem list & Plan #COPD exacerbation w/ End-stage COPD #Recurrent Pseudomonas Infection w/ Bronchoatelectasis #Chronic med conditions including Hypertension, arrythmia, SIADH w/ chronnic hyponatremia - On 3LNC now but will taper to 2LNC today, TRC/Neb as needed, Chest PT bid - Pulm recommended to switched to Meropenam 1g q8 for Pseudomonas coverage due to hx of Ceftaz resistant, Tapered to PO prednisone 40mg qd, and rapid taper to 5mg. - Pending sputum culture sensitivity of GND - Resume Azithromycin 250mg QOD upon discharge, and stop Roflumilast upon DC - Continue home med Roflumilast 500mcg qd. - Continue home meds including Lasix 20mg qd, diltiazem 240mg ER qd - Confirmed meds w/ [facility]. Patient was on Prednisone 10mg qd and Diltiazem 240mg qd prior this admission. - CBC/BEP in the AM DVT prophylaxis Lovenox + ALPS Regular Diet DNR/DNI
[2017-10-01 07:00] VITALS: BP 132/65
[2017-10-01 09:05] LABS: ABSOLUTE BASOPHIL COUNT 0 /CUMM (0.0-0.2); ABSOLUTE EOSINOPHIL COUNT 0 /CUMM (0.0-0.7); ABSOLUTE GRANULOCYTE CT 4.8 /CUMM (1.4-6.5); ABSOLUTE LYMPH COUNT 1.6 /CUMM (1.2-3.4); ABSOLUTE MONOCYTE COUNT 0.8 /CUMM (0.10-0.60); BASOPHIL % 0.4 % (0.0-2.0); EOSINOPHIL % 0 % (0-5); GRANULOCYTE % 66.5 % (42.2-75.2); HEMATOCRIT 33.3 % (37-47); MEAN CORPUSCULAR HGB 28.4 PG (27.0-31.0); MEAN CORPUSCULAR HGB CONC 32.7 G/DL (33.0-37.0); MEAN CORPUSCULAR VOLUME 86.9 FL (81.0-99.0); PLATELET COUNT 220 /CUMM (130-400); RBC DISTRIBUTION WIDTH 14.2 % (11.5-14.5); RED BLOOD CELL CT 3.83 /CUMM (4.20-5.40); WHITE BLOOD CELL COUNT 7.2 /CUMM (4.8-10.8)
--- NOTE | 2017-10-01 11:32 | PN- Att Addend ---
Attending Addendum Attending Brief Note Patient is weak and tired but otherwise doing okay. On exam she is afebrile, blood pressure is 130/60, pulse is 78-90, breathing at 18-20 and sats are 92% on her usual oxygen. Awake alert, lungs have decreased breath sounds with some scattered rhonchi, heart is S1-S2 regular, abdomen is soft nontender and there is no edema. She is a 77-year-old with multiple medical problems including advanced COPD and bronchiectasis and chronic respiratory failure on oxygen was here with a gram- negative pneumonia. We are treating her with IV meropenem. Sputum Gram stain did show many gram-negative rods and she has grown Pseudomonas resistant to ceftaz in the past. We also treated her with IV steroids and we are tapering off on by mouth steroids. And will follow closely.
[2017-10-01 14:38] VITALS: BP 12/56; BP 128/56
--- NOTE | 2017-10-01 16:05 | PN- Pulmonary ---
Subjective HPI/Critical Care Issues: Slowly improving on abx Objective Current Medications: Current Medications Sig/Jabier Start time Last Medication Dose Route Stop Time Status Admin Acetaminophen 650 MG .STK-MED ONE 09/30 2205 DC PO 09/30 220 Acetaminophen 650 MG Q4P PRN 09/28 2045 AC 10/01 PO 0804 Albuterol Sulfate 3 ML EVERY 4 HRS/AWAKE 09/29 0800 AC 10/01 INH 0915 Albuterol Sulfate 3 ML Q6P PRN 09/28 1600 AC 10/01 INH 1302 Ascorbic Acid 250 MG DAILY 09/29 1000 AC 10/01 PO 0754 Azithromycin 500 MG Q48H 09/29 1000 AC 10/01 PO 0754 Bisacodyl 10 MG DAILY PRN 09/28 1715 AC OK Diltiazem HCl 240 MG DAILY 09/30 1000 AC 10/01 PO 0754 Enoxaparin Sodium 40 MG DAILY 09/29 1000 AC 10/01 SC 0755 Fluticasone 2 PUF BID 09/28 1559 AC 10/01 Propionate INH 0805 Furosemide 20 MG DAILY 09/29 1000 AC 10/01 PO 0754 Guaifenesin 600 MG Q12 09/28 2200 AC 10/01 PO 0754 Lactobacillus 1 CAP DAILY 09/28 1703 AC 10/01 Acidophilus PO 0754 Meropenem 1 GM IQ8 09/29 0000 AC 10/01 IV 0753 Polyethylene Glycol 17 GM DAILY PRN 09/28 1715 AC PO Prednisone 40 MG DAILY 09/30 1000 AC 10/01 PO 0754 Roflumilast 500 MCG DAILY 09/29 1000 AC 10/01 PO 0754 Senna/Docusate Sodium 1 TAB BID PRN 09/28 1715 AC PO Tiotropium [place] 1 PUF DAILY 09/28 1603 AC 10/01 INH 0753 Vital Signs & I&O Last 24 Hrs of Vitals and I&O: Vital Signs Date Time Temp Pulse Resp B/P B/P Pulse O2 O2 Flow FiO2 Mean Ox Delivery Rate 10/01 1438 98.8 86 20 128/56 95 Nasal 3.0L Cannula 10/01 0916 93 Nasal 3.0L Cannula 10/01 0800 Nasal 3.0L Cannula 10/01 0700 98.5 85 18 132/65 98 Nasal 3.0L Cannula 10/01 0000 Nasal 3.0L Cannula 09/30 2247 98.4 79 18 128/58 98 Nasal 3.0L Cannula 09/30 2005 95 Nasal 2.0L Cannula 09/30 1723 95 Nasal 2.0L Cannula Intake & Output 10/01 1600 10/01 0800 10/01 0000 Intake Total 2250 Output Total 800 1150 Balance 2250 -800 -1150 Intake, IV 0 Intake, Oral 2250 Number 2 Bowel Movements Output, Urine 800 1150 Impression/Plan Impression/Plan Impression/Plan: General Appearance Alert, Oriented X3, Cooperative, No Acute Distress Skin No Rashes, No Breakdown, No Significant Lesion Skin Temp/Moisture Exam: Warm/Dry Sepsis Skin Exam (color): Normal for Ethnicity HEENT Atraumatic, PERRLA Neck Supple, No JVD Cardiovascular Regular Rate, arrythmia on EKG but not auscultated Lungs Diminished breath sounds b/l lung, with some rhonchi but no wheeze. 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 * REcent diarrhea rule neg for cdiff RECOMMENDATION * Cont meropenam and await sputum culture * change to 30 prednison and rapid taper to 5 mg * Resume her outpatient azithromycin 250 mg po qod for prevention of Pseudomonas infections upon dc * Increase her calorie intake if pt able * Chest pt bid daily. No need for Mucomyst, ask resp to do this * keep potassium more than 4 Patient wishes to be DNR/DNI does not want to go to intensive care does not wish any other life-support she would like to continue her current therapy for now.
[2017-10-01 22:00] VITALS: BP 136/58
[2017-10-02 06:56] VITALS: BP 134/58
[2017-10-02 08:36] LABS: ABSOLUTE BASOPHIL COUNT 0 /CUMM (0.0-0.2); ABSOLUTE EOSINOPHIL COUNT 0 /CUMM (0.0-0.7); ABSOLUTE GRANULOCYTE CT 4.3 /CUMM (1.4-6.5); ABSOLUTE LYMPH COUNT 1.6 /CUMM (1.2-3.4); ABSOLUTE MONOCYTE COUNT 0.7 /CUMM (0.10-0.60); BASOPHIL % 0.3 % (0.0-2.0); EOSINOPHIL % 0 % (0-5); GRANULOCYTE % 64.8 % (42.2-75.2); HEMATOCRIT 35.4 % (37-47); MEAN CORPUSCULAR HGB 28.5 PG (27.0-31.0); MEAN CORPUSCULAR HGB CONC 32.6 G/DL (33.0-37.0); MEAN CORPUSCULAR VOLUME 87.6 FL (81.0-99.0); MEAN PLATELET VOLUME 7.8 FL (7.4-10.4); PLATELET COUNT 231 /CUMM (130-400); RBC DISTRIBUTION WIDTH 14.5 % (11.5-14.5); RED BLOOD CELL CT 4.04 /CUMM (4.20-5.40); WHITE BLOOD CELL COUNT 6.6 /CUMM (4.8-10.8)
--- NOTE | 2017-10-02 10:14 | PN- Att Addend ---
Attending Addendum Attending Brief Note Patient is doing okay. Still fairly short of breath and coughing bringing up greenish phlegm On exam she is afebrile, blood pressure is 130/60, pulse is 78- 90, breathing at 18-20 and sats are 90% on her usual oxygen. Awake alert, lungs have decreased breath sounds with some scattered rhonchi, heart is S1-S2 regular, abdomen is soft nontender and there is no edema. She is a 77-year-old with multiple medical problems including advanced COPD and bronchiectasis and chronic respiratory failure on oxygen is here with a gram- negative pneumonia. We are treating her with IV meropenem. Sputum Gram stain did show many gram-negative rods and she has grown Pseudomonas resistant to ceftaz in the past. We also treated her with IV steroids and we are tapering off on by mouth steroids. And will follow closely. As per pulmonary she needs 7 days of IV antibiotics for this gram-negative pneumonia that failed outpatient IV ceftaz. As there are only a few days left to complete the seven-day course will follow her closely clinically over here.
--- NOTE | 2017-10-02 13:37 | PN- Pulmonary ---
Subjective HPI/Critical Care Issues: Patient is doing okay. Still fairly short of breath and coughing bringing up greenish phlegm On exam she is afebrile, blood pressure is 130/60, pulse is 78- 90, breathing at 18-20 and sats are 90% on her usual oxygen. Objective Current Medications: Current Medications Sig/Jabier Start time Last Medication Dose Route Stop Time Status Admin Acetaminophen 650 MG .STK-MED ONE 10/01 2318 DC PO 10/01 2319 Acetaminophen 650 MG Q4P PRN 09/28 2045 AC 10/02 PO 0829 Albuterol Sulfate 3 ML EVERY 4 HRS/AWAKE 09/29 0800 AC 10/02 INH 1144 Albuterol Sulfate 3 ML Q6P PRN 09/28 1600 AC 10/01 INH 1302 Ascorbic Acid 250 MG DAILY 09/29 1000 AC 10/02 PO 0830 Azithromycin 250 MG Q48H 10/03 1000 AC PO Azithromycin 500 MG Q48H 09/29 1000 DC 10/01 PO 0754 Bisacodyl 10 MG DAILY PRN 09/28 1715 AC [place] Diltiazem HCl 240 MG DAILY 09/30 1000 AC 10/02 PO 0829 Enoxaparin Sodium 40 MG DAILY 09/29 1000 AC 10/02 SC 0828 Fluticasone 2 PUF BID 09/28 1559 AC 10/02 Propionate INH 0828 Furosemide 20 MG DAILY 09/29 1000 AC 10/02 PO 0830 Guaifenesin 600 MG Q12 09/28 2200 AC 10/02 PO 0830 Lactobacillus 1 CAP DAILY 09/28 1703 AC 10/02 Acidophilus PO 0829 Melatonin 3 MG AT BEDTIME 10/02 2200 AC PO Melatonin 3 MG ONCE ONE 10/01 2115 DC 10/01 PO 10/01 2116 2321 Meropenem 1 GM IQ8 09/29 0000 AC 10/02 IV 0828 Polyethylene Glycol 17 GM DAILY PRN 09/28 1715 AC PO Prednisone 5 MG DAILY 10/05 1000 AC PO 10/11 1001 Prednisone 10 MG DAILY 10/04 1000 AC PO 10/04 1001 Prednisone 20 MG DAILY 10/03 1000 AC PO 10/03 1001 Prednisone 30 MG DAILY 10/02 1000 DC 10/02 PO 10/02 1001 0830 Prednisone 30 MG DAILY 10/01 1830 CAN PO 10/11 1829 Prednisone 40 MG DAILY 09/30 1000 DC 10/01 PO 0754 Roflumilast 500 MCG DAILY 09/29 1000 AC 10/02 PO 0830 Senna/Docusate Sodium 1 TAB BID PRN 09/28 1715 AC PO Tiotropium [place] 1 PUF DAILY 09/28 1603 AC 10/02 INH 0828 Vital Signs & I&O Last 24 Hrs of Vitals and I&O: Vital Signs Date Time Temp Pulse Resp B/P B/P Pulse O2 O2 Flow FiO2 Mean Ox Delivery Rate 10/02 0824 94 Nasal 3.0L Cannula 10/02 0746 Nasal 3.0L Cannula 10/02 0656 98.0 72 20 134/58 96 10/02 0000 92 Nasal 3.0L Cannula 10/01 2200 98.0 83 19 136/58 95 Nasal 2.0L Cannula 10/01 1605 96 Nasal 3.0L Cannula 10/01 1438 98.8 86 20 128/56 95 Nasal 3.0L Cannula Intake & Output 10/02 1600 10/02 0800 10/02 0000 Intake Total 350 450 Output Total 500 300 Balance -150 150 Intake, Oral 350 450 Number 2 Bowel Movements Output, Urine 500 300 Impression/Plan Impression/Plan Impression/Plan: General Appearance Alert, Oriented X3, Cooperative, No Acute Distress Skin No Rashes, No Breakdown, No Significant Lesion Skin Temp/Moisture Exam: Warm/Dry Sepsis Skin Exam (color): Normal for Ethnicity HEENT Atraumatic, PERRLA Neck Supple, No JVD Cardiovascular Regular Rate, arrythmia on EKG but not auscultated Lungs Diminished breath sounds b/l lung, with some rhonchi but no wheeze. Abdomen Normal Bowel Sounds, Soft, No Tenderness Neurological Normal Speech, Strength at 5/5 X4 Ext Extremities No Edema, Normal Pulses IMPRESSION This is a lady with very advanced end-stage lung disease with COPD and bilateral bronchiectasis with chronic Pseudomonas colonization, on maximum medical therapy now comes in with * REcent worsening of bronchiectasis with pseudomonas with acute exacerbation not responding to ceftaz at [facility] (s/p one week of rx) * Severe lung disease with end-stage COPD and bilateral severe bronchiectasis related to previous infections with Pseudomonas colonization with recurrent infection now with acute infection suggestive of Pseudomonas infection. 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 * REcent diarrhea rule neg for cdiff RECOMMENDATION * Cont meropenam and await sputum culture * 30mg prednison and rapid taper to 5 mg * Resume her outpatient azithromycin 250 mg po qod for prevention of Pseudomonas infections upon dc * Increase her calorie intake if pt able * Chest pt bid daily. * keep potassium more than 4 Patient wishes to be DNR/DNI does not want to go to intensive care does not wish any other life-support she would like to continue her current therapy for now.
--- NOTE | 2017-10-02 13:39 | PN- Housestaff ---
StephenJoann Hamilton Hackett 10/02/17 1334: Subjective Follow-up For: #COPD exacerbation w/ End-stage COPD #Recurrent Pseudomonas Infection w/ Bronchoatelectasis #Chronic med conditions including Hypertension, arrythmia, SIADH w/ chronnic hyponatremia Subjective: Patient c/o of SOB while ambulating. However she said she was doing ok if just resting on bed. Review of Systems Constitutional: Reports: see HPI. Objective Last 24 Hrs of Vital Signs/I&O Vital Signs Date Time Temp Pulse Resp B/P B/P Pulse O2 O2 Flow FiO2 Mean Ox Delivery Rate 10/02 0824 94 Nasal 3.0L Cannula 10/02 0746 Nasal 3.0L Cannula 10/02 0656 98.0 72 20 134/58 96 10/02 0000 92 Nasal 3.0L Cannula 10/01 2200 98.0 83 19 136/58 95 Nasal 2.0L Cannula 10/01 1605 96 Nasal 3.0L Cannula 10/01 1438 98.8 86 20 128/56 95 Nasal 3.0L Cannula Intake & Output 10/02 1600 10/02 0800 10/02 0000 Intake Total 350 450 Output Total 500 300 Balance -150 150 Intake, Oral 350 450 Number 2 Bowel Movements Output, Urine 500 300 Physical Exam General Appearance: Alert, Oriented X3, Cooperative, No Acute Distress Cardiovascular: Regular Rate Lungs: Normal Air Movement, Diminished air entry b/l Abdomen: Normal Bowel Sounds, Soft Neurological: Normal Speech Extremities: No Edema, Normal Pulses Current Medications: Current Medications Sig/Jabier Start time Last Medication Dose Route Stop Time Status Admin Acetaminophen 650 MG .STK-MED ONE 10/018 DC PO 10/01 2319 Acetaminophen 650 MG Q4P PRN 09/28 2045 AC 10/02 PO 0829 Albuterol Sulfate 3 ML EVERY 4 HRS/AWAKE 09/29 0800 AC 10/02 INH 1144 Albuterol Sulfate 3 ML Q6P PRN 09/28 1600 AC 10/01 INH 1302 Ascorbic Acid 250 MG DAILY 09/29 1000 AC 10/02 PO 0830 Azithromycin 250 MG Q48H 10/03 1000 AC PO Azithromycin 500 MG Q48H 09/29 1000 DC 10/01 PO 0754 Bisacodyl 10 MG DAILY PRN 09/28 1715 AC [place] Diltiazem HCl 240 MG DAILY 09/30 1000 AC 10/02 PO 0829 Enoxaparin Sodium 40 MG DAILY 09/29 1000 AC 10/02 SC 0828 Fluticasone 2 PUF BID 09/28 1559 AC 10/02 Propionate INH 0828 Furosemide 20 MG DAILY 09/29 1000 AC 10/02 PO 0830 Guaifenesin 600 MG Q12 09/28 2200 AC 10/02 PO 0830 Lactobacillus 1 CAP DAILY 09/28 1703 AC 10/02 Acidophilus PO 0829 Melatonin 3 MG AT BEDTIME 10/02 2200 AC PO Melatonin 3 MG ONCE ONE 10/01 2115 DC 10/01 PO 10/01 211 2321 Meropenem 1 GM IQ8 09/29 0000 AC 10/02 IV 0828 Polyethylene Glycol 17 GM DAILY PRN 09/28 1715 AC PO Prednisone 5 MG DAILY 10/05 1000 AC PO 10/11 1001 Prednisone 10 MG DAILY 10/04 1000 AC PO 10/04 1001 Prednisone 20 MG DAILY 10/03 1000 AC PO 10/03 1001 Prednisone 30 MG DAILY 10/02 1000 DC 10/02 PO 10/02 1001 0830 Prednisone 30 MG DAILY 10/01 1830 CAN PO 10/11 1829 Prednisone 40 MG DAILY 09/30 1000 DC 10/01 PO 0754 Roflumilast 500 MCG DAILY 09/29 1000 AC 10/02 PO 0830 Senna/Docusate Sodium 1 TAB BID PRN 09/28 1715 AC PO Tiotropium [place] 1 PUF DAILY 09/28 1603 AC 10/02 INH 0828 Last 24 Hrs of Lab/Seth Results Last 24 Hrs of Labs/Mics: Laboratory Tests 10/02/17 0729: Anion Gap 6, Estimated GFR > 60, BUN/Creatinine Ratio 28.0 H, CBC w Diff NO MAN DIFF REQ, RBC 4.04 L, MCV 87.6, MCH 28.5, RDW 14.5, MPV 7.8, Gran % 64.8, Lymphocytes % 23.7, Monocytes % 11.2 H, Eosinophils % 0, Basophils % 0.3, Absolute Granulocytes 4.3, Absolute Lymphocytes 1.6, Absolute Monocytes 0.7 H, Absolute Eosinophils 0, Absolute Basophils 0, PUBS MCHC 32.6 L Assessment/Plan Assessment: Mr. 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 Gonzalez for evaluation of shortness of breath for 3-4 days, with productive cough and no improvement with home meds including steroid/inhaler/musinex. 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 Patient's ROS otherwise negative. Patient's clinical picture presented with COPD exacerbation despite being chronic retainer of CO2 based on ABG history. Patient 's CBC showed leukocytosis despite afebrile w/o sepsis, CXR showed unclear findings of pneumonia/atelectasis, despite previous history of recurrent pseudomonas infection w/ bronchoatelectasis, however still warrants IV Abx treatment in this admission. Problem list & Plan #COPD exacerbation w/ End-stage COPD #Recurrent Pseudomonas Infection w/ Bronchoatelectasis #Chronic med conditions including Hypertension, arrythmia, SIADH w/ chronnic hyponatremia - On 3LNC now but will try taper to 2LNC today, TRC/Neb as needed, Chest PT bid - Pulm recommended to switched to Meropenam 1g q8 for Pseudomonas coverage due to hx of Ceftaz resistant, Tapered to PO prednisone 30mg qd, and rapid taper to 5mg. - Pending sputum culture sensitivity of GND - Resume Azithromycin 250mg QOD, and Continued home med Roflumilast 500mcg qd, would stop Roflumilast upon DC - Continue home meds including Lasix 20mg qd, diltiazem 240mg ER qd - Confirmed meds w/ [facility]. Patient was on Prednisone 10mg qd and Diltiazem 240mg qd prior this admission. DVT prophylaxis Lovenox + ALPS Regular Diet DNR/DNI Problem List: 1. COPD exacerbation 2. Pneumonia Pain Ratin Pain Location: NA Pain Goal: Remain pain free Pain Plan: PATRICIA Nazario MD,Jennifer 10/03/17 1052: Assessment/Plan Tomorrow's Labs & Rationales: none ordered Attending MD Review Statement Attending Statement Attending MD Statement: examined this patient, discuss w/resident/PA/RECORDS AND T[employer] RECORDINGS ENGINEER, agreed w/resident/PA/RECORDS AND TAPE RECORDINGS ENGINEER, reviewed EMR data (avail), discussed with nursing, reviewed images Attending Assessment/Plan: See medical brief addendum note dated 10/02/2017.
[2017-10-02 14:53] VITALS: BP 132/78
[2017-10-02 21:55] VITALS: BP 110/58
[2017-10-03 06:48] VITALS: BP 124/56
[2017-10-03 08:57] LABS: ABSOLUTE BASOPHIL COUNT 0 /CUMM (0.0-0.2); ABSOLUTE EOSINOPHIL COUNT 0 /CUMM (0.0-0.7); ABSOLUTE GRANULOCYTE CT 5.6 /CUMM (1.4-6.5); ABSOLUTE LYMPH COUNT 1.6 /CUMM (1.2-3.4); ABSOLUTE MONOCYTE COUNT 0.6 /CUMM (0.10-0.60); BASOPHIL % 0.3 % (0.0-2.0); EOSINOPHIL % 0 % (0-5); GRANULOCYTE % 71.4 % (42.2-75.2); HEMATOCRIT 35.6 % (37-47); MEAN CORPUSCULAR HGB 28.6 PG (27.0-31.0); MEAN CORPUSCULAR HGB CONC 32.9 G/DL (33.0-37.0); MEAN PLATELET VOLUME 7.8 FL (7.4-10.4); PLATELET COUNT 273 /CUMM (130-400); RED BLOOD CELL CT 4.09 /CUMM (4.20-5.40); WHITE BLOOD CELL COUNT 7.8 /CUMM (4.8-10.8)
--- NOTE | 2017-10-03 10:57 | PN- Att Addend ---
Attending Addendum Attending Brief Note Patient appears about the same. She is afebrile on steroids, pressure is 130/80 , pulse of 78-90, breathing at 18-20. Lungs have scattered rhonchi, heart is S1 -S2 regular and abdomen is soft. She is an 77-year-old female with advanced COPD and bronchiectasis who we are treating with IV meropenem for gram-negative pneumonia given that the Pseudomonas she's grown in the past has been resistance to ceftaz and she's failed outpatient treatment. Tomorrow will be day 6 of IV antibiotics and will discuss with pulmonary whether that would suffice for the treatment. We are tapering the steroids and following closely.
--- NOTE | 2017-10-03 11:29 | PN- Housestaff ---
Subjective Follow-up For: #COPD exacerbation w/ End-stage COPD #Recurrent Pseudomonas Infection w/ Bronchoatelectasis #Chronic med conditions including Hypertension, arrythmia, SIADH w/ chronnic hyponatremia Subjective: Patient is breathing comfortably under 2LNC. NO complaint. Review of Systems Constitutional: Reports: see HPI. Objective Last 24 Hrs of Vital Signs/I&O Vital Signs Date Time Temp Pulse Resp B/P B/P Pulse O2 O2 Flow FiO2 Mean Ox Delivery Rate 10/03 0812 92 Nasal 3.0L Cannula 10/03 0648 98.3 80 18 124/56 95 10/03 0000 95 Room Air 3.0L 10/02 2155 97.7 80 19 110/58 97 Nasal 2.0L Cannula 10/02 2025 96 Nasal 2.0L Cannula 10/02 162 96 Nasal 2.0L Cannula 10/02 1600 Nasal 3.0L Cannula 10/02 1453 98.3 72 20 132/78 94 Nasal 3.0L Cannula Intake & Output 10/03 1600 10/03 0800 10/03 0000 Intake Total 350 450 Output Total 350 Balance 0 450 Intake, Oral 350 450 Output, Urine 350 Patient 47.174 kg Weight Physical Exam General Appearance: Alert, Oriented X3, Cooperative, No Acute Distress Cardiovascular: Regular Rate Lungs: Normal Air Movement, rhonchi but no wheeze b/l Abdomen: Soft, No Tenderness Extremities: No Edema, Normal Pulses Current Medications: Current Medications Sig/Jabier Start time Last Medication Dose Route Stop Time Status Admin Acetaminophen 650 MG .STK-MED ONE 10/02 2236 DC PO 10/02 2237 Acetaminophen 650 MG Q4P PRN 09/28 2045 AC 10/03 PO 1110 Albuterol Sulfate 3 ML EVERY 4 HRS/AWAKE 09/29 0800 AC 10/03 INH 0810 Albuterol Sulfate 3 ML Q6P PRN 09/28 1600 AC 10/01 INH 1302 Ascorbic Acid 250 MG DAILY 09/29 1000 AC 10/03 PO 1052 Azithromycin 250 MG Q48H 10/03 1000 AC 10/03 PO 1052 Bisacodyl 10 MG DAILY PRN 09/28 1715 AC [place] Diltiazem HCl 240 MG DAILY 09/30 1000 AC 10/03 PO 1051 Enoxaparin Sodium 40 MG DAILY 09/29 1000 AC 10/02 SC 0828 Fluticasone 2 PUF BID 09/28 1559 AC 10/03 Propionate INH 1102 Furosemide 20 MG DAILY 09/29 1000 AC 10/03 PO 1052 Guaifenesin 600 MG Q12 09/28 2200 AC 10/03 PO 1052 Lactobacillus 1 CAP DAILY 09/28 1703 AC 10/03 Acidophilus PO 1052 Melatonin 3 MG AT BEDTIME 10/02 2200 AC 10/02 PO 2232 Meropenem 1 GM IQ8 10/03 1100 AC 10/03 IV 1103 Meropenem 1 GM IQ8 10/03 1100 DC IV Meropenem 1 GM IQ8 09/29 0000 DC 10/02 IV 2304 Polyethylene Glycol 17 GM DAILY PRN 09/28 1715 AC PO Prednisone 5 MG DAILY 10/05 1000 AC PO 10/11 1001 Prednisone 10 MG DAILY 10/04 1000 AC PO 10/04 1001 Prednisone 20 MG DAILY 10/03 1000 DC 10/03 PO 10/03 1001 1052 Roflumilast 500 MCG DAILY 09/29 1000 AC 10/03 PO 1051 Senna/Docusate Sodium 1 TAB BID PRN 09/28 1715 AC PO Tiotropium [place] 1 PUF DAILY 09/28 1603 AC 10/02 INH 0828 Last 24 Hrs of Lab/Seth Results Last 24 Hrs of Labs/Mics: Laboratory Tests 10/03/17 0800: Anion Gap 8, Estimated GFR > 60, BUN/Creatinine Ratio 34.0 H, CBC w Diff NO MAN DIFF REQ, RBC 4.09 L, MCV 87.0, MCH 28.6, RDW 14.0, MPV 7.8, Gran % 71.4, Lymphocytes % 20.0 L, Monocytes % 8.3, Eosinophils % 0, Basophils % 0.3, Absolute Granulocytes 5.6, Absolute Lymphocytes 1.6, Absolute Monocytes 0.6, Absolute Eosinophils 0, Absolute Basophils 0, PUBS MCHC 32.9 L Assessment/Plan Assessment: Mr. 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 Gonzalez for evaluation of shortness of breath for 3-4 days, with productive cough and no improvement with home meds including steroid/inhaler/musinex. 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 Patient's ROS otherwise negative. Patient's clinical picture presented with COPD exacerbation despite being chronic retainer of CO2 based on ABG history. Patient 's CBC showed leukocytosis despite afebrile w/o sepsis, CXR showed unclear findings of pneumonia/atelectasis, despite previous history of recurrent pseudomonas infection w/ bronchoatelectasis, however still warrants IV Abx treatment in this admission. Problem list & Plan #COPD exacerbation w/ End-stage COPD #Recurrent Pseudomonas Infection w/ Bronchoatelectasis #Chronic med conditions including Hypertension, arrythmia, SIADH w/ chronnic hyponatremia - On 2LNC today, TRC/Neb as needed, Chest PT bid - Pulm recommended to switched to Meropenam 1g q8 for Pseudomonas coverage due to hx of Ceftaz resistant, currently day 5, Tapered to PO prednisone 20mg qd, and rapid taper to 5mg. - Pending sputum culture sensitivity of GND - Resumed Azithromycin 250mg QOD, and Continued home med Roflumilast 500mcg qd, would stop Roflumilast upon DC - Continue home meds including Lasix 20mg qd, diltiazem 240mg ER qd - Confirmed meds w/ [facility]. Patient was on Prednisone 10mg qd and Diltiazem 240mg qd prior this admission. DVT prophylaxis Lovenox + ALPS Regular Diet DNR/DNI Problem List: 1. COPD (chronic obstructive pulmonary disease) 2. Bronchiectasis Pain Ratin Pain Location: NA Pain Goal: Remain pain free Pain Plan: NA Tomorrow's Labs & Rationales: CBC/BEP
--- NOTE | 2017-10-03 12:30 | PN- Pulmonary ---
Subjective HPI/Critical Care Issues: DOing well stable Objective Current Medications: Current Medications Sig/Jabier Start time Last Medication Dose Route Stop Time Status Admin Acetaminophen 650 MG .STK-MED ONE 10/02 2236 DC PO 10/02 223 Acetaminophen 650 MG Q4P PRN 09/28 2045 AC 10/03 PO 1110 Albuterol Sulfate 3 ML EVERY 4 HRS/AWAKE 09/29 0800 AC 10/03 INH 1206 Albuterol Sulfate 3 ML Q6P PRN 09/28 1600 AC 10/01 INH 1302 Ascorbic Acid 250 MG DAILY 09/29 1000 AC 10/03 PO 1052 Azithromycin 250 MG Q48H 10/03 1000 AC 10/03 PO 1052 Bisacodyl 10 MG DAILY PRN 09/28 1715 AC ME Diltiazem HCl 240 MG DAILY 09/30 1000 AC 10/03 PO 1051 Enoxaparin Sodium 40 MG DAILY 09/29 1000 AC 10/02 SC 0828 Fluticasone 2 PUF BID 09/28 1559 AC 10/03 Propionate INH 1102 Furosemide 20 MG DAILY 09/29 1000 AC 10/03 PO 1052 Guaifenesin 600 MG Q12 09/28 2200 AC 10/03 PO 1052 Lactobacillus 1 CAP DAILY 09/28 1703 AC 10/03 Acidophilus PO 1052 Melatonin 3 MG AT BEDTIME 10/02 2200 AC 10/02 PO 2232 Meropenem 1 GM IQ8 10/03 1100 AC 10/03 IV 1103 Meropenem 1 GM IQ8 10/03 1100 DC IV Meropenem 1 GM IQ8 09/29 0000 DC 10/02 IV 2304 Polyethylene Glycol 17 GM DAILY PRN 09/28 1715 AC PO Prednisone 5 MG DAILY 10/05 1000 AC PO 10/11 1001 Prednisone 10 MG DAILY 10/04 1000 AC PO 10/04 1001 Prednisone 20 MG DAILY 10/03 1000 DC 10/03 PO 10/03 1001 1052 Roflumilast 500 MCG DAILY 09/29 1000 AC 10/03 PO 1051 Senna/Docusate Sodium 1 TAB BID PRN 09/28 1715 AC PO Tiotropium [place] 1 PUF DAILY 09/28 1603 AC 10/03 INH 1223 Vital Signs & I&O Last 24 Hrs of Vitals and I&O: Vital Signs Date Time Temp Pulse Resp B/P B/P Pulse O2 O2 Flow FiO2 Mean Ox Delivery Rate 10/03 0812 92 Nasal 3.0L Cannula 10/03 0648 98.3 80 18 124/56 95 10/03 0000 95 Room Air 3.0L 10/02 2155 97.7 80 19 110/58 97 Nasal 2.0L Cannula 10/02 2025 96 Nasal 2.0L Cannula 10/02 1625 96 Nasal 2.0L Cannula 10/02 1600 Nasal 3.0L Cannula 10/02 1453 98.3 72 20 132/78 94 Nasal 3.0L Cannula Intake & Output 10/03 1600 10/03 0800 10/03 0000 Intake Total 350 450 Output Total 350 Balance 0 450 Intake, Oral 350 450 Output, Urine 350 Patient 104 lb Weight Impression/Plan Impression/Plan Impression/Plan: General Appearance Alert, Oriented X3, Cooperative, No Acute Distress Skin No Rashes, No Breakdown, No Significant Lesion Skin Temp/Moisture Exam: Warm/Dry Sepsis Skin Exam (color): Normal for Ethnicity HEENT Atraumatic, PERRLA Neck Supple, No JVD Cardiovascular Regular Rate, arrythmia on EKG but not auscultated Lungs Diminished breath sounds b/l lung, with some rhonchi but no wheeze. 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 * REcent diarrhea rule neg for cdiff RECOMMENDATION * Cont meropenam for a total of seven days and change to po cipro 500 bid for total abx of 14 days * 20mg prednison and rapid taper to 5 mg * Resume her outpatient azithromycin 250 mg po qod for prevention of Pseudomonas infections upon dc * Increase her calorie intake if pt able * Chest pt bid daily. * keep potassium more than 4 Patient wishes to be DNR/DNI does not want to go to intensive care does not wish any other life-support she would like to continue her current therapy for now.
[2017-10-03 15:17] VITALS: BP 126/50
[2017-10-03] MEDS ORDERED: CIPROFLOXACIN750 M1 PO (19:16)
[2017-10-03] MEDS ORDERED: MEROPENEM1 G1 IV (19:16)
[2017-10-03 22:56] VITALS: BP 134/50
[2017-10-04 07:11] VITALS: BP 140/56
--- NOTE | 2017-10-04 08:43 | PN- Housestaff ---
Joann Mitchell Hamilton Mckeonie 10/04/17 0839: Subjective Follow-up For: #COPD exacerbation w/ End-stage COPD #Recurrent Pseudomonas Infection w/ Bronchoatelectasis #Chronic med conditions including Hypertension, arrythmia, SIADH w/ chronnic hyponatremia Subjective: Patient is breathing comfortably under 2LNC. Patient stated that she felt tired but otherwise no symptoms Review of Systems Constitutional: Reports: see HPI. Objective Last 24 Hrs of Vital Signs/I&O Vital Signs Date Time Temp Pulse Resp B/P B/P Pulse O2 O2 Flow FiO2 Mean Ox Delivery Rate 10/04 0756 96 Nasal 3.0L Cannula 10/04 0711 97.9 88 20 140/56 93 10/04 0000 Nasal 3.0L Cannula 10/03 2256 98.2 87 20 134/50 96 Nasal 2.0L Cannula 10/03 2039 95 Nasal 3.0L Cannula 10/03 1517 98.9 101 20 126/50 93 Nasal 3.0L Cannula Intake & Output 10/04 1600 10/04 0800 10/04 0000 Intake Total Output Total 1200 Balance -1200 Output, Urine 1200 Physical Exam General Appearance: Alert, Oriented X3, Cooperative, No Acute Distress Current Medications: Current Medications Sig/Jabier Start time Last Medication Dose Route Stop Time Status Admin Acetaminophen 650 MG .STK-MED ONE 10/03 2148 DC PO 10/03 214 Acetaminophen 650 MG .STK-MED ONE 10/03 1104 DC PO 10/03 1105 Acetaminophen 650 MG Q4P PRN 09/28 2045 AC 10/03 PO 2149 Albuterol Sulfate 3 ML EVERY 4 HRS/AWAKE 09/29 0800 AC 10/04 INH 0754 Albuterol Sulfate 3 ML Q6P PRN 09/28 1600 AC 10/01 INH 1302 Ascorbic Acid 250 MG DAILY 09/29 1000 AC 10/03 PO 1052 Azithromycin 250 MG Q48H 10/03 1000 AC 10/03 PO 1052 Bisacodyl 10 MG DAILY PRN 09/28 1715 AC MO Diltiazem HCl 240 MG DAILY 09/30 1000 AC 10/03 PO 1051 Enoxaparin Sodium 40 MG DAILY 09/29 1000 AC 10/03 SC 1234 Fluticasone 2 PUF BID 09/28 1559 AC 10/03 Propionate INH 2141 Furosemide 20 MG DAILY 09/29 1000 AC 10/03 PO 1052 Guaifenesin 600 MG Q12 09/28 2200 AC 10/03 PO 2141 Lactobacillus 1 CAP DAILY 09/28 1703 AC 10/03 Acidophilus PO 1052 Melatonin 3 MG AT BEDTIME 10/02 2200 AC 10/02 PO 2232 Meropenem 1 GM IQ8 10/03 1100 AC 10/04 IV 0104 Meropenem 1 GM IQ8 10/03 1100 DC IV Polyethylene Glycol 17 GM DAILY PRN 09/28 1715 AC PO Prednisone 5 MG DAILY 10/05 1000 AC PO 10/11 1001 Prednisone 10 MG DAILY 10/04 1000 AC PO 10/04 1001 Prednisone 20 MG DAILY 10/03 1000 DC 10/03 PO 10/03 1001 1052 Roflumilast 500 MCG DAILY 09/29 1000 AC 10/03 PO 1051 Senna/Docusate Sodium 1 TAB BID PRN 09/28 1715 AC PO Tiotropium [place] 1 PUF DAILY 09/28 1603 AC 10/03 INH 1223 Last 24 Hrs of Lab/Seth Results Last 24 Hrs of Labs/Mics: Laboratory Tests 10/04/17 0700: Sodium Pending, Potassium Pending, Chloride Pending, Carbon Dioxide Pending, Anion Gap Pending, BUN Pending, Creatinine Pending, BUN/Creatinine Ratio Pending , CBC w Diff Pending, WBC Pending, RBC Pending, Hgb Pending, Hct Pending, MCV Pending, MCH Pending, RDW Pending, Plt Count Pending, MPV Pending, PUBS MCHC Pending Assessment/Plan Assessment: Mr. 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 Gonzalez for evaluation of shortness of breath for 3-4 days, with productive cough and no improvement with home meds including steroid/inhaler/musinex. 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 Patient's ROS otherwise negative. Patient's clinical picture presented with COPD exacerbation despite being chronic retainer of CO2 based on ABG history. Patient 's CBC showed leukocytosis despite afebrile w/o sepsis, CXR showed unclear findings of pneumonia/atelectasis, despite previous history of recurrent pseudomonas infection w/ bronchoatelectasis, however still warrants IV Abx treatment in this admission. Problem list & Plan #COPD exacerbation w/ End-stage COPD #Recurrent Pseudomonas Infection w/ Bronchoatelectasis #Chronic med conditions including Hypertension, arrythmia, SIADH w/ chronnic hyponatremia - On 2LNC today, TRC/Neb as needed, Chest PT bid - Pulm recommended to switched to Meropenam 1g q8 for Pseudomonas coverage due to hx of Ceftaz resistant, currently day 5, Tapered to PO prednisone 20mg qd, and rapid taper to 5mg. - Will discharge back to [facility], continue one more day of Meropenem at [facility], and then switch to oral cipro x 7 days. - Pending sputum culture sensitivity of GND - Resumed Azithromycin 250mg QOD, and Continued home med Roflumilast 500mcg qd, would stop Roflumilast upon DC - Continue home meds including Lasix 20mg qd, diltiazem 240mg ER qd - Confirmed meds w/ [facility]. Patient was on Prednisone 10mg qd and Diltiazem 240mg qd prior this admission. DVT prophylaxis Lovenox + ALPS Regular Diet DNR/DNI Problem List: 1. COPD (chronic obstructive pulmonary disease) 2. Bronchiectasis Pain Ratin Pain Location: NA Pain Goal: Remain pain free Pain Plan: NA Tomorrow's Labs & Rationales: Gianfranco Crowley 10/04/17 1443: Attending MD Review Statement Attending Statement Attending MD Statement: examined this patient, discuss w/resident/PA/[employer] ENAMEL [employer]ORER, agreed w/resident/PA/[employer] ENAMEL [employer]ORER, discussed with family, reviewed EMR data (avail), discussed with nursing, discussed with case mgmt, reviewed images, amended to note Attending Assessment/Plan: Patient seen/examined bedside. Patient denies any new complaints. She is requesting discharge to her facility. She is an 77-year-old female with advanced COPD and bronchiectasis who we are treating with IV meropenem for gram-negative pneumonia given that the Pseudomonas she's grown in the past has been resistance to ceftaz and she's failed outpatient treatment. Pulmonary consulted during this hospital admission. Patient to receive ciprofloxacin as outpatient to complete 14 days of abx. Resume her outpatient azithromycin. CHest physiotherapy daily. DNR/DNI, does not want aggressive measures.
[2017-10-04 09:07] LABS: ABSOLUTE BASOPHIL COUNT 0 /CUMM (0.0-0.2); ABSOLUTE EOSINOPHIL COUNT 0 /CUMM (0.0-0.7); ABSOLUTE GRANULOCYTE CT 4.5 /CUMM (1.4-6.5); ABSOLUTE LYMPH COUNT 1.9 /CUMM (1.2-3.4); ABSOLUTE MONOCYTE COUNT 0.5 /CUMM (0.10-0.60); BASOPHIL % 0.3 % (0.0-2.0); EOSINOPHIL % 0.4 % (0-5); GRANULOCYTE % 64.5 % (42.2-75.2); MEAN CORPUSCULAR HGB 28.5 PG (27.0-31.0); MEAN CORPUSCULAR HGB CONC 32.8 G/DL (33.0-37.0); MEAN PLATELET VOLUME 8.2 FL (7.4-10.4); PLATELET COUNT 263 /CUMM (130-400); RBC DISTRIBUTION WIDTH 14.2 % (11.5-14.5); RED BLOOD CELL CT 4.02 /CUMM (4.20-5.40); WHITE BLOOD CELL COUNT 6.9 /CUMM (4.8-10.8)
--- NOTE | 2017-10-04 10:34 | PN- Pulmonary ---
Subjective HPI/Critical Care Issues: Patient is breathing comfortably under 2LNC. Patient stated that she felt tired but otherwise no symptoms Review of Systems Constitutional: Reports: see HPI. Objective Current Medications: Current Medications Sig/Jabier Start time Last Medication Dose Route Stop Time Status Admin Acetaminophen 650 MG .STK-MED ONE 10/03 2148 DC PO 10/03 214 Acetaminophen 650 MG .STK-MED ONE 10/03 1104 DC PO 10/03 1105 Acetaminophen 650 MG Q4P PRN 09/28 2045 AC 10/04 PO 0838 Albuterol Sulfate 3 ML EVERY 4 HRS/AWAKE 09/29 0800 AC 10/04 INH 0754 Albuterol Sulfate 3 ML Q6P PRN 09/28 1600 AC 10/01 INH 1302 Ascorbic Acid 250 MG DAILY 09/29 1000 AC 10/04 PO 0837 Azithromycin 250 MG Q48H 10/03 1000 AC 10/03 PO 1052 Bisacodyl 10 MG DAILY PRN 09/28 1715 AC MO Diltiazem HCl 240 MG DAILY 09/30 1000 AC 10/04 PO 0837 Enoxaparin Sodium 40 MG DAILY 09/29 1000 AC 10/04 SC 0838 Fluticasone 2 PUF BID 09/28 1559 AC 10/04 Propionate INH 0840 Furosemide 20 MG DAILY 09/29 1000 AC 10/04 PO 0838 Guaifenesin 600 MG Q12 09/28 2200 AC 10/04 PO 0838 Lactobacillus 1 CAP DAILY 09/28 1703 AC 10/04 Acidophilus PO 0837 Melatonin 3 MG AT BEDTIME 10/02 2200 AC 10/02 PO 2232 Meropenem 1 GM IQ8 10/03 1100 AC 10/04 IV 0846 Meropenem 1 GM IQ8 10/03 1100 DC IV Polyethylene Glycol 17 GM DAILY PRN 09/28 1715 AC PO Prednisone 5 MG DAILY 10/05 1000 AC PO 10/11 1001 Prednisone 10 MG DAILY 10/04 1000 DC 10/04 PO 10/04 1001 0838 Roflumilast 500 MCG DAILY 09/29 1000 AC 10/03 PO 1051 Senna/Docusate Sodium 1 TAB BID PRN 09/28 1715 AC PO Tiotropium [place] 1 PUF DAILY 09/28 1603 AC 10/04 INH 0838 Vital Signs & I&O Last 24 Hrs of Vitals and I&O: Vital Signs Date Time Temp Pulse Resp B/P B/P Pulse O2 O2 Flow FiO2 Mean Ox Delivery Rate 10/04 0800 Nasal 3.0L Cannula 10/04 0756 96 Nasal 3.0L Cannula 10/04 0711 97.9 88 20 140/56 93 10/04 0000 Nasal 3.0L Cannula 10/03 2256 98.2 87 20 134/50 96 Nasal 2.0L Cannula 10/03 2039 95 Nasal 3.0L Cannula 10/03 1517 98.9 101 20 126/50 93 Nasal 3.0L Cannula Intake & Output 10/04 1600 10/04 0800 10/04 0000 Intake Total Output Total 1200 Balance -1200 Output, Urine 1200 Impression/Plan Impression/Plan Impression/Plan: General Appearance Alert, Oriented X3, Cooperative, No Acute Distress Skin No Rashes, No Breakdown, No Significant Lesion Skin Temp/Moisture Exam: Warm/Dry Sepsis Skin Exam (color): Normal for Ethnicity HEENT Atraumatic, PERRLA Neck Supple, No JVD Cardiovascular Regular Rate, arrythmia on EKG but not auscultated Lungs Diminished breath sounds b/l lung, with some rhonchi but no wheeze. 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 * REcent diarrhea rule neg for cdiff RECOMMENDATION * Meropenam for a total of seven days and change to po cipro 500 bid for total abx of 14 days * 20mg prednison and rapid taper to 5 mg * Resume her outpatient azithromycin 250 mg po qod for prevention of Pseudomonas infections upon dc * Increase her calorie intake if pt able * Chest pt bid daily. * keep potassium more than 4 Patient wishes to be DNR/DNI does not want to go to intensive care does not wish any other life-support she would like to continue her current therapy for now.
[2017-10-04] MEDS ORDERED: CIPROFLOXACIN750 M1 PO (13:09)
[2017-10-04 13:36] VITALS: BP 140/56
== END 2017-10-04 13:42 | DRG 177 ==
LOC: ERH 11:44 → 2NB 13:19 → ERHI 13:19 → ENRESERV 14:35 → CANRESERV 14:35 → EDBEDREQ 15:18 → ENRESERV 15:47 → ENTRNSPT 16:47 → EDTRNSPT 16:54 → EDTRNSPTTM 16:54 → EDTRNSPTSTS 16:54 → 2NB 17:00 → CMPTRNSPT 17:14 → 2NB 10-04 08:20
PROVIDERS: Physician Assistant Medical; Student in an Organized Health Care Education/Training Program
DX: J15.1 Pneumonia due to Pseudomonas (principal); J96.21 Acute and chronic respiratory failure with hypoxia; J84.9 Interstitial pulmonary disease, unspecified; E87.3 Alkalosis; R64 Cachexia; E22.2 Syndrome of inappropriate secretion of antidiuretic hormone; J96.12 Chronic respiratory failure with hypercapnia; I27.29 Other secondary pulmonary hypertension; J47.1 Bronchiectasis with (acute) exacerbation; Z68.1 Body mass index [BMI] 19.9 or less, adult; J47.0 Bronchiectasis with acute lower respiratory infection; I47.1 Supraventricular tachycardia; I36.1 Nonrheumatic tricuspid (valve) insufficiency; Z99.81 Dependence on supplemental oxygen; I10 Essential (primary) hypertension; Z66 Do not resuscitate; Z79.52 Long term (current) use of systemic steroids; R19.7 Diarrhea, unspecified
CPT/HCPCS: 2NBP; 36415; 81003; 82436; 87040; 87070; 93005; 93010; J0456; J0713; J1650; J2185; J2920; J3490; J7512